=== PATIENT | male | born 1955 | race Caucasian/White ===

== ENCOUNTER 2021-07-21 09:43 | Day surgery (SDC) | payer OTHER ==
--- NOTE | 2021-07-21 09:01 | HP ---
DATE OF SURGERY: 07/21/2021 HISTORY OF PRESENT ILLNESS: The patient is a 66-year-old with no prior colonoscopy. Grandmother at age 57 of cancer metastatic to the colon. The patient has pain and some hemorrhoid problems despite conservative treatment. PAST MEDICAL HISTORY: Hypertension. Reflux. Hyperlipidemia. PAST SURGICAL HISTORY: Broken wrist repair. Hydrocele in the past. MEDICATIONS: Metoprolol, multivitamins, omeprazole, rosuvastatin, lisinopril, amlodipine, famotidine. ALLERGIES: NKDA. FAMILY HISTORY: Grandmother with cancer to part of the colon. SOCIAL HISTORY: Four beers in the evening. He denies alcohol abuse. REVIEW OF SYSTEMS: Fourteen systems reviewed. No chest pain or palpitations. Other systems negative or noncontributory as above and per preadmission questionnaire. PHYSICAL EXAMINATION: GENERAL: No acute distress. HEENT: Sclerae nonicteric. NECK: No JVD. CHEST: Equal excursion, nonlabored breathing. CVS: Regular rate and rhythm. ABDOMEN: Soft. No peritoneal signs. EXTREMITIES: No significant edema. NEURO: Alert, oriented, moving extremities symmetrically. RECTAL: Deferred timed to endoscopy exam. PSYCH: Appropriate mood and affect. IMPRESSION: Family history of cancer to the colon. No prior colonoscopy. The patient is in need of screening colonoscopy. Additionally, this patient has had some hemorrhoid issues will consider possible internal hemorrhoid banding pending on operative findings. Risks and benefits explained in detail including but not limited to bleeding or infection, risk of bowel injury or perforation possibly requiring open procedure, risk of missed or nondiagnosis or incomplete exam possibly requiring barium enema, other studies or procedures, general risk of anesthesia or sedation, risk of bowel prep. Regarding possible hemorrhoid banding if accomplished, possibility of progression disease possibly requiring other procedures down the road or treatments. General risk of infection, small risk of bleeding, risks of aches, pains and pressure but not limited to. Remote risk of major infection possibly requiring diversion but not limited to, consent obtained. Will proceed with outpatient colonoscopy and possible internal hemorrhoid banding as an outpatient.
[2021-07-21] MEDS ORDERED: Lactated Ringers 1,000 ML IV SCH (10:30)
[2021-07-21] MEDS ORDERED: Lactated Ringers 1,000 ML IV ONE ×2 (10:36→11:42)
[2021-07-21] MEDS ORDERED: DIPRIVAN 200 MG/20 ML IV ONE ×3 (11:08→11:31)
[2021-07-21] MEDS ORDERED: Versed 2 MG/2 ML Injection ONE (11:08)
[2021-07-21] MEDS ORDERED: Ephedrine Sulfate 50 MG/ML ONE (11:27)
[2021-07-21 13:12] LABS: INR 1.03 (0.8-3.0); PROTIME 12.2 SECONDS (9.4-12.5)
[2021-07-21 13:17] VITALS: BP 144/81; PULSE 54; O2SAT 96
--- NOTE | 2021-07-21 15:44 | OP ---
SURGERY DATE/TIME: 07/21/2021 1107 PREOPERATIVE DIAGNOSES: 1) Family history of colon cancer. 2) Need for screening colonoscopy. 3) Questionable history of some internal and external hemorrhoid issues. POSTOPERATIVE DIAGNOSES: 1) Multiple polyps and polypoid lesions throughout the entire colon, majority of which were in 30 cm of sigmoid colon to the cecum, more than 25 polypoid and polyp lesions. 2) Mild diverticulosis. 3) Minimal small internal/external hemorrhoids (no banding warranted today). PROCEDURES: 1) Colonoscopy to cecum. 2) Hot snare polypectomy of cecal polyp x2. 3) Cold biopsy of small cecal sessile mass. 4) Hot snare polypectomy of two ascending colon polyps. 5) Hot snare partial polypectomy of large polypoid lesion ascending colon with ink spot tattooing of location (this polyp could not be entirely safely removed endoscopically). 6) Hemoclip placement polypectomy site proximal ascending colon. 7) Hot snare polypectomy of transverse colon polyp. 8) Hot biopsy polypectomy of smaller polyps x4 transverse colon. 9) Hot snare polypectomy descending colon polyp. 10) Hot snare polypectomy of four to five sigmoid colon polyps. 11) Hot biopsy one of which oozing side with Hemoclip application sigmoid colon polypectomy site. 12) Ink spot marking of hot biopsy polypectomy site of sessile polypoid lesion transverse colon. Ink spot tattooing marking the location. 13) Ink spot tattooing in a couple different locations of sigmoid polypoid lesion large enough not to be safely removed completely endoscopically about 30 cm from the anal verge. 14) Hot snare polypectomy of two small rectal polyps with hot biopsy polypectomy of a third one of which was a distal rectal hot snare polypectomy. SURGEON: Dr. Demond Soto. ANESTHESIA: MAC. ESTIMATED BLOOD LOSS: Minimal. INDICATIONS: He has a strong family of colon cancer. He has not had a prior colonoscopy. He was in need of screening colonoscopy and also wanted to evaluate for hemorrhoids at the time. Consent obtained. DESCRIPTION OF PROCEDURE AND FINDINGS: The patient is taken to the endoscopy room. MAC anesthesia induced. After official time out and no disagreement with planned procedure, digital rectal exam revealed some small internal and external hemorrhoids. Video colonoscope inserted and passed up through the slightly tortuous sigmoid, descending, transverse and ascending colon around to the cecum. Ileocecal valve photo documented. The patient had multiple polyps throughout the colon most of all concentrated from about 30 cm to anal verge all the way around the cecum. There was a 1 cm sized polyp removed with hot snare polypectomy in the cecum. Another smaller polyp removed with hot snare polypectomy in the cecum. Good hemostasis noted. Small polyp in the proximal ascending colon removed with hot snare polypectomy. There was some persistent ooze at this site. After waiting a few seconds it was elected to put Hemoclip carefully applied to the area. Another couple ascending colon polyps removed with hot snare polypectomy. He had a polypoid lesion that was way too large to safely remove endoscopically in the ascending colon. Because of this the other several small polyps were not removed. A large piece of this was removed with hot snare to get a good biopsy sample of this polypoid lesion. In the ascending colon, ink spot tattooing in a couple different locations was injected. The scope was carefully withdrawn back to the ascending colon. There were two or three smaller polyps removed with hot snare polypectomy. One polyp was removed with hot snare polypectomy. There is a sessile lesion that could not be completely removed endoscopically. Biopsy obtained with hot biopsy forceps. Good hemostasis noted. It should be noted that back in the cecum, there were two polyps that were removed completely with the snare. However there is a sessile small mass that is not very deep, sessile polypoid lesion or mass. It was biopsied with cold biopsy forceps. Good hemostasis noted. The scope was continued to be pulled back through the descending colon. Small polyp removed with hot snare polypectomy. The patient did have a few small diverticula in the left colon. There was at least four sigmoid polyps removed with hot snare polypectomy. One side had some persistent oozing despite waiting for a few seconds which was controlled with Hemoclip application. There was a group of three polypoid lesions moderately large polypoid lesions ranging from 0.5 to 2.5 cm that could not be safely removed endoscopically. Because of this again ink spot tattooing was injected 1 cc in submucosa at a couple locations to ryan this location this was about 30 cm up from the anal verge. Hot snare polypectomy sample was taken. The scope pulled back. He had a few small diverticula to his left colon. There were three small polyps in the rectum two were removed with hot snare polypectomy and one was in the distal rectum removed with hot snare polypectomy, smaller retrieved with hot biopsy polypectomy. These appeared to be completely removed. The scope is withdrawn. Half-padilla retractors carefully inserted. His internal hemorrhoids did not seem to be large enough to warrant banding at this point. He did have a few external tags/ external hemorrhoids component. I do not feel it warranted any surgical intervention. The bleeding he had in the past is likely from these multiple polypoid lesions. Again, there were just three very small polyps down in the rectal area, mostly large polyps were from 30 cm and more up and proximal to the cecum. I asked the staff to order the genetic cancer screening test. I will see him back in the office next week. There was no family to discuss the findings with.
== END 2021-07-21 13:25 | disposition home or self-care (01) ==
LOC: SDC 09:43
PROVIDERS: ATTEND Surgery
DX: Z12.11 Encounter for screening for malignant neoplasm of colon (principal); Z80.0 Family history of malignant neoplasm of digestive organs; K64.8 Other hemorrhoids; K64.4 Residual hemorrhoidal skin tags; K57.30 Diverticulosis of large intestine without perforation or abscess without bleeding; D12.0 Benign neoplasm of cecum; D12.4 Benign neoplasm of descending colon; D12.5 Benign neoplasm of sigmoid colon; D12.3 Benign neoplasm of transverse colon; D12.8 Benign neoplasm of rectum
CPT/HCPCS: 36415; 85610; J2250; J2704

== ENCOUNTER 2023-08-15 10:51 | Emergency (ER) | payer OTHER ==
[2023-08-15 11:05] VITALS: TEMP 97.5
--- NOTE | 2023-08-15 11:24 | ERPHSYRPT ---
- History of Present Illness Time Seen by Provider: 08/15/23 11:05 Source: patient Exam Limitations: no limitations Patient Subjective Stated Complaint: SOB-Abdominal pain Triage Nursing Assessment: Patient ambulated back to ED and transferred self to bed. Patient A+O X3. Patient's skin pink, warm and dry. Patient complains of SOB that started yesterday that has gotten worse today. Patient's initial O2 noted to be 90% on room air. Patient placed on O2 at 3 liters bringing O2 to 96%. Patient denies cough. Patient complains of leroy flank pain 08/05. Patient states for the past two weeks he has been having up to 12 bowel movements a day consisting of thick peanut butter. Physician History: 68-year-old male with history of tobacco abuse, bilateral flank pain for the last 2 to 3 months after colonoscopy presented in the ER with complaint of shortness of breath since yesterday with progressive worsening. Patient reports feeling short of breath initially with activity and now even at resting. No chest tightness pressure or pain reported. No wheezing. No cough fever or chills. Patient denies any history of coronary artery disease. No known sick contact. Patient has bilateral flank pain dull aching discomfort with no aggravating or relieving factors. Does report some upper abdominal distention and questionable history of constipation. Patient was not mild distress on presentation with saturation around 90% and placed on 2 L oxygen and currently around 96%. Allergies/Adverse Reactions: No Known Drug Allergies Allergy (Verified 08/15/23 10:55) Home Medications: Amlodipine Besylate 5 mg [Norvasc 5 mg] 5 mg PO DAILY 07/11/21 [History] Famotidine 20 mg PO DAILY 07/11/21 [History] Lisinopril 20 mg [Zestril 20 MG] 20 mg PO DAILY 07/11/21 [History] Metoprolol Succinate 100 mg [Toprol Xl 100 MG] 100 mg PO DAILY 07/11/21 [History] Multivit with Iron,Minerals [Theratrum Complete 50 Plus] 1 tab PO DAILY 07/11/21 [History] Omeprazole 40 mg PO DAILY 07/11/21 [History] Rosuvastatin Calcium 20 mg PO DAILY 07/11/21 [History] Hx Influenza Vaccination/Date Given: No Hx Pneumococcal Vaccination/Date Given: No Immunizations Up to Date: Yes Travel Risk - International Travel Have you traveled outside of the country in past 3 weeks: No - Emerging Infectious Disease Are you exhibiting symptoms associated with any current EIDs: No - Review of Systems Constitutional: Fatigue Eyes: No Symptoms Ears, Nose, & Throat: No Symptoms Respiratory: Cough, Dyspnea Cardiac: No Symptoms Abdominal/Gastrointestinal: Abdominal Pain, Constipation Genitourinary Symptoms: No Symptoms Musculoskeletal: Arthralgias Skin: No Symptoms Neurological: No Symptoms Psychological: No Symptoms Hematologic/Lymphatic: No Symptoms Immunological/Allergic: No Symptoms - Past Medical History Pertinent Past Medical History: Yes Neurological History: No Pertinent History ENT History: No Pertinent History Cardiac History: High Cholesterol, Hypertension Respiratory History: No Pertinent History Endocrine Medical History: No Pertinent History Musculoskeletal History: No Pertinent History GI Medical History: GERD, Other History: No Pertinent History Psycho-Social History: No Pertinent History Male Reproductive Disorders: No Pertinent History Other Medical History: right side inguinal hernia x 10 years - Past Surgical History Past Surgical History: Yes Neuro Surgical History: No Pertinent History Cardiac: No Pertinent History Respiratory: No Pertinent History Gastrointestinal: No Pertinent History Genitourinary: No Pertinent History Musculoskeletal: No Pertinent History Male Surgical History: No Pertinent History Other Surgical History: hydrocele - Social History Smoking Status: Former smoker How long have you smoked: 40 yrs Exposure to second hand smoke: Yes Drug Use: none - Nursing Vital Signs Nursing Vital Signs: Initial Vital Signs Temperature 97.5 F 08/15/23 10:56 Pulse Rate 75 08/15/23 10:56 Respiratory Rate 30 H 08/15/23 10:56 Blood Pressure 175/107 08/15/23 10:56 O2 Sat by Pulse Oximetry 90 L 08/15/23 10:56 Pain Scale Pain Intensity 3 - Physical Exam General Appearance: no apparent distress, alert Eye Exam: PERRL/EOMI Ears, Nose, Throat Exam: hearing grossly normal Neck Exam: normal inspection, non-tender, supple, full range of motion Respiratory Exam: respiratory distress, diminished breath sounds (Especially on right side), rhonchi Cardiovascular/Chest Exam: normal heart sounds, regular rate/rhythm Abdominal/Gastrointestinal Exam: soft, normal bowel sounds, No tenderness Extremity Exam: non-tender, normal range of motion Neurologic Exam: alert, oriented x 3, cooperative Skin Exam: normal color SpO2 Interpretation: normal SpO2: 90 O2 Delivery: Room Air Procedures - Chest Tube Time of Procedure: 14:24 Timeout: Performed Chest Tube Location: fourth intercostal space Size of Egyptian Tube (cm): 8 Chest Tube Procedure: betadine prep Anesthesia: 1% Lidocaine w/ Epi Volume Anesthetic (ccs): 4 Correa of Air Mcnairy: Yes Tube Drainage: air Tube Sutured to Skin: Yes Post Procedure CXR?: Yes Progress: Lung reexpansion with decrease in size of pneumothorax interpreted by me, official report pending - Course EKG Interpreted by Me: RATE ([id number]), Sinus Rhythm, NORMAL AXIS, Q-wave Ordered Tests: Active Orders 24 hr Category Date Time Status EKG-ER Only STAT Care 08/15/23 11:19 Active IV Insertion STAT Care 08/15/23 11:19 Active NPO (ED) STAT Care 08/15/23 11:19 Active ABDOMEN AND PELVIS W CONTRAST [CT] Stat Exams 08/15/23 11:20 Completed CHEST 1 VIEW (PORTABLE) Stat Exams 08/15/23 11:20 Completed CHEST 1 VIEW (PORTABLE) Stat Exams 08/15/23 13:54 Taken CHEST 1 VIEW (PORTABLE) Stat Exams 08/15/23 17:26 Ordered CHEST WITHOUT CONTRAST [CT] Stat Exams 08/15/23 14:23 Completed CBC W DIFF Stat Lab 08/15/23 11:19 Completed CMP Stat Lab 08/15/23 11:19 Completed LIPASE Stat Lab 08/15/23 11:19 Completed Lactic Acid Stat Lab 08/15/23 11:19 Completed NT PRO BNPII Stat Lab 08/15/23 11:19 Completed TROPONIN Q4H Lab 08/15/23 11:19 Completed TROPONIN Q4H Lab 08/15/23 15:06 Completed TROPONIN Q4H Lab 08/15/23 19:30 Ordered UA W/RFX UR CULTURE Stat Lab 08/15/23 11:19 Ordered Respiratory Therapy Assessment DAILY RT 08/15/23 12:55 Completed Medication Summary Generic Name Dose Route Start Last Admin Trade Name Freq PRN Reason Stop Dose Admin Sodium Chloride 1,000 mls @ 100 mls/hr 08/15/23 11:30 08/15/23 11:26 Sodium Chloride 0.9% 1000 Ml IV 09/14/23 11:29 100 mls/hr .Q10H TRE Administration Discontinued Medications Generic Name Dose Route Start Last Admin Trade Name Freq PRN Reason Stop Dose Admin Albuterol/Ipratropium 3 ml 08/15/23 11:24 08/15/23 11:32 Ipratropium/Albuterol Sulfate 3 Ml Ampul.Neb IH 08/15/23 11:25 3 ml STAT ONE Administration Albuterol/Ipratropium Confirm 08/15/23 11:31 Ipratropium/Albuterol Sulfate 3 Ml Ampul.Neb Administered 08/15/23 11:32 Dose 3 ml IH .STK-MED ONE Hydralazine HCl 10 mg 08/15/23 14:37 08/15/23 14:45 Hydralazine Hcl 20 Mg/Ml Vial IV 08/15/23 14:38 10 mg STAT ONE Administration Hydralazine HCl Confirm 08/15/23 14:45 Hydralazine Hcl 20 Mg/Ml Vial Administered 08/15/23 14:46 Dose 20 mg .ROUTE .STK-MED ONE Lidocaine/Epinephrine Confirm 08/15/23 13:48 Lidocaine Hcl/Epinephrine 1% 20 Ml Administered 08/15/23 13:49 Dose 10 ml .ROUTE .STK-MED ONE Lab/Rad Data: Laboratory Result Diagrams 08/15/23 11:19 08/15/23 11:19 Laboratory Results 08/15/23 08/15/23 08/15/23 Range/Units 15:06 11:19 11:19 WBC (4.0-10.5) x10^3/uL RBC (4.1-5.6) x10^6/uL Hgb (12.5-18.0) g/dL Hct (42-50) % MCV (78-100) fL MCH (26-32) pg MCHC (32-36) g/dL RDW (11.5-14.0) % Plt Count (150-450) x10^3/uL MPV (7.5-11.0) fL Gran % (36.0-66.0) % Immature Gran % (Auto) (0.00-0.4) % Nucleat RBC Rel Count (0.00-0.1) % Eos # (Auto) (0-0.5) x10^3/uL Immature Gran # (Auto) (0.00-0.03) x10^3u/L Absolute Lymphs (auto) (1.0-4.6) x10^3/uL Absolute Monos (auto) (0.0-1.3) x10^3/uL Absolute Nucleated RBC (0.00-0.01) x10^3u/L Lymphocytes % (24.0-44.0) % Monocytes % (0.0-12.0) % Eosinophils % (0.00-5.0) % Basophils % (0.0-0.4) % Absolute Granulocytes (1.4-6.9) x10^3/uL Basophils # (0-0.4) x10^3/uL Sodium 143 (135-145) mmol/L Potassium 4.2 (3.5-5.1) mmol/L Chloride 105 (98-107) mmol/L Carbon Dioxide 28 (22-30) mmol/L Anion Gap 14.0 (5-15) MEQ/L BUN 16 (9-20) mg/dL Creatinine 1.11 (0.66-1.25) mg/dL Estimated GFR 71.9 ML/MIN Glucose 136 H (74-106) mg/dL Lactic Acid (0.4-2.0) Calcium 10.8 H (8.4-10.2) mg/dL Total Bilirubin 0.70 (0.2-1.3) mg/dL AST 42 (17-59) U/L ALT 53 H (0-50) U/L Alkaline Phosphatase 87 (38-126) U/L Troponin I < 0.012 < 0.012 (0.000-0.033) ng/mL NT-Pro-B Natriuret Pep 331 (<300) pg/mL Serum Total Protein 8.6 H (6.3-8.2) g/dL Albumin 5.1 H (3.5-5.0) g/dL Lipase 211 (23-300) U/L 08/15/23 08/15/23 Range/Units 11:19 11:19 WBC 7.9 (4.0-10.5) x10^3/uL RBC 4.81 (4.1-5.6) x10^6/uL Hgb 15.8 (12.5-18.0) g/dL Hct 46.6 (42-50) % MCV 96.9 (78-100) fL MCH 32.8 H (26-32) pg MCHC 33.9 (32-36) g/dL RDW 12.9 (11.5-14.0) % Plt Count 312 (150-450) x10^3/uL MPV 11.1 H (7.5-11.0) fL Gran % 50.5 (36.0-66.0) % Immature Gran % (Auto) 0.1 (0.00-0.4) % Nucleat RBC Rel Count 0.0 (0.00-0.1) % Eos # (Auto) 0.18 (0-0.5) x10^3/uL Immature Gran # (Auto) 0.01 (0.00-0.03) x10^3u/L Absolute Lymphs (auto) 2.52 (1.0-4.6) x10^3/uL Absolute Monos (auto) 1.15 (0.0-1.3) x10^3/uL Absolute Nucleated RBC 0.00 (0.00-0.01) x10^3u/L Lymphocytes % 31.8 (24.0-44.0) % Monocytes % 14.5 H (0.0-12.0) % Eosinophils % 2.3 (0.00-5.0) % Basophils % 0.8 (0.0-0.4) % Absolute Granulocytes 4.01 (1.4-6.9) x10^3/uL Basophils # 0.06 (0-0.4) x10^3/uL Sodium (135-145) mmol/L Potassium (3.5-5.1) mmol/L Chloride (98-107) mmol/L Carbon Dioxide (22-30) mmol/L Anion Gap (5-15) MEQ/L BUN (9-20) mg/dL Creatinine (0.66-1.25) mg/dL Estimated GFR ML/MIN Glucose (74-106) mg/dL Lactic Acid 1.6 (0.4-2.0) Calcium (8.4-10.2) mg/dL Total Bilirubin (0.2-1.3) mg/dL AST (17-59) U/L ALT (0-50) U/L Alkaline Phosphatase (38-126) U/L Troponin I (0.000-0.033) ng/mL NT-Pro-B Natriuret Pep (<300) pg/mL Serum Total Protein (6.3-8.2) g/dL Albumin (3.5-5.0) g/dL Lipase (23-300) U/L - Progress Progress: re-examined Air Movement: good Progress Note: 08/15/23 17:49 68-year-old is evaluated for shortness of breath and abdominal pain. Patient was tachypneic on presentation, although saturation around 90% but was struggling to breathe, placed on 3 L oxygen with saturation around 93 to 94%. Patient has decreased breath sounds on the left right and x-ray confirmed right- sided pneumothorax with some element of tension confirmed by radiology. After informed consent 8 Egyptian mini chest tube is placed with reexpansion of the lung noticed. Patient immediately started to feel better and without oxygen his saturation improved to mid to upper 90s. Workup otherwise showed normal white count, unremarkable chemistries except for some elevation in the calcium of 10.8, troponins are negative x 2. I have also obtained CT abdomen pelvis which is fairly unremarkable, having mild colonic thickening but patient does not have any significant tenderness in that area. I have obtained CT without contrast after chest tube placement which showed the tip of tube is possibly in the lung and I have pulled it back almost 4 cm and repeated x-ray which is showing still tube in with no worsening of pneumothorax reviewed by me, official report is pending. Chest x-ray also showed some granulomatous changes but no obvious consolidation. Patient is currently on room air around 98%. Discussed with Dr. Minna tao here, recommended transfer to facility with pulmonology services. I have discussed with Dr. Field at 1530, reviewed history, workup, recommended calling back after CT scan. I have discussed with Dr. Field again after CT report [id number] he agreed with transfer. Plan discussed with patient which she understand and agrees. Based on patient's history, amount of workup, interpretation, procedure done and discussion with other physicians it was one of the higher level of complexity. 08/15/23 17:53 Blood Culture(s) Obtained: No Antibiotics given: No Discussed with : Other Will see patient in: ED (Minna balderramaist and Dr. Field [facility]) Counseled pt/family regarding: lab results, diagnosis, need for follow-up, rad results Medical Desision Making - Independent Historian Additional History obtained from: Spouse - Discussion of managment Care discussed with:: [facility]) Reviewed:: Test results, Need for additional workup Agreed on:: Treatment plan Will see patient: in ED - Diagnostic Testing Diagnostic test were ordered, analyzed, and reviewed by me: Yes Radiological Interpretation: Interpreted by me, Reviewed by me, Teleradiologist Report - Risk of complications The pt has a mod risk of morbidity or mortality based on: Need for minor surgical intervention in patient with know risk factors The pt has a high risk of morbidity or mortality based on: Decision regarding hospitilization or escalation of hosp level of care - Departure Departure Disposition: Transfer Clinical Impression: Spontaneous tension pneumothorax, Abdominal pain Condition: Stable Critical Care Time: No Referrals: CHUNG ARTEAGA, PHP PROGRAMMER [Primary Care Provider] - Follow up/PCP as directed
[2023-08-15] MEDS ORDERED: Sodium Chloride 0.9% 1000 ML 1,000 ML ONE (11:25)
[2023-08-15] MEDS: Sodium Chloride 0.9% 1000 ML 1,000 ML IV SCH (11:26)
[2023-08-15 11:31] LABS: Absolute Neutrophil Ct (ANC) 4.01 x10^3/uL (1.4-6.9); BASOPHIL % 0.8 % (0.0-0.4); Basophil (Absolute #) 0.06 x10^3/uL (0-0.4); Eosinophil % 2.3 % (0.00-5.0); Eosinophil (Absolute #) 0.18 x10^3/uL (0-0.5); Hematocrit 46.6 % (42-50); Hemoglobin 15.8 g/dL (12.5-18.0); IMMATURE GRAN # 0.01 x10^3u/L (0.00-0.03); IMMATURE GRAN % 0.1 % (0.00-0.4); Lymphocyte (Absolute #) 2.52 x10^3/uL (1.0-4.6); Lymphocytes % 31.8 % (24.0-44.0); Mean Cell Volume 96.9 fL (78-100); Mean Corpuscular Hemoglobin 32.8 pg (26-32); Mean Corpuscular Hgb Concent. 33.9 g/dL (32-36); Mean Platelet Volume 11.1 fL (7.5-11.0); Monocyte (Absolute #) 1.15 x10^3/uL (0.0-1.3); Monocytes % 14.5 % (0.0-12.0); Neutrophil % 50.5 % (36.0-66.0); Platelet Count 312 x10^3/uL (150-450); Red Blood Count 4.81 x10^6/uL (4.1-5.6); Red Cell Distribution Width 12.9 % (11.5-14.0); White Blood Count 7.9 x10^3/uL (4.0-10.5)
[2023-08-15] MEDS ORDERED: DUONEB 0.5-3 MG/3 ml Neb IH ONE (11:31)
[2023-08-15] MEDS: DUONEB 0.5-3 MG/3 ml Neb IH ONE (11:32)
[2023-08-15 11:54] LABS: ALBUMIN 5.1 g/dL (3.5-5.0); BILIRUBIN,TOTAL 0.7 mg/dL (0.2-1.3); Calcium 10.8 mg/dL (8.4-10.2); Creatinine 1 1.11 mg/dL (0.66-1.25); EST GLOMERULAR FILTRATION RATE 71.9 ML/MIN; Potassium 4.2 mmol/L (3.5-5.1); Total Protein 8.6 g/dL (6.3-8.2)
--- NOTE | 2023-08-15 13:47 | XRAY ---
CLINICAL HISTORY: b/l flank area pain COMPARISON: None. TECHNIQUE: A CT scan of the abdomen and pelvis was performed with IV contrast 80 cc Isovue 370. Coronal and sagittal reconstructive images were also obtained. One of the following dose reduction techniques was utilized for this exam: Automated exposure control, adjustment of the mA and/or kV according to patient size, and use of iterative reconstruction. DLP 565.00 mGy-cm, CTDI 11.72 mGy. FINDINGS: Abdomen: The liver is normal in size and measures 13 cm. No focal or diffuse parenchymal abnormality. The portal vein, intrahepatic biliary radicals, and the bile ducts are normal. The spleen, pancreas, and adrenal glands are unremarkable. The kidneys are unremarkable. They are normal in size and shape. No calculi or hydronephrosis. apart from small bilateral renal cortical cysts with mild perinephric mild fatty stranding. The gallbladder is normal. No pericholecystic collection or radio-dense calculi in the gall bladder. Mild wall thickening at the sigmoid colon. The rest of the bowel loops are unremarkable. No acute appendicitis. There is no evidence of significant enlargement of the mesenteric or retroperitoneal lymph nodes. cuts taken through the lung showing marked right pneumothorax, right lower lung lobe large calcified lesion measuring about 3.7 x 2.6 cm associated with mild pleural effusion and nodular pleural thickening and underlying segmental collapsed segment. Another small calcified lesion in the left lower lung lobe measures about 0.7 x 0.7 cm. Atherosclerotic changes of the aorta and iliac vessels. Pelvis: The urinary bladder is unremarkable. The rectosigmoid colon is unremarkable. The prostate is unremarkable. A large right inguinoscrotal hernia is noted with herniated bowel loops within. No evidence of pelvic lymphadenopathy. The osseous structures in the pelvis, lower rib cage, and lumbar spine show no abnormality. No lytic or sclerotic bone lesions. Lumbar spine spondylosis. IMPRESSION: 1. Cuts taken through the lung showed marked right pneumothorax, right lower lung lobe large calcified lesion measuring about 3.7 x 2.6 cm associated with mild pleural effusion and nodular pleural thickening and underlying segmental collapsed segment. Another small calcified lesion in the left lower lung lobe. The possibility of metastatic or neoplastic process could not be ruled out, advise clinical correlation and further dedicated CT chest assessment. 2. Mild sigmoid colon wall thickening. Advise clinical correlation and further assessment if clinically warranted. 3. Small bilateral Right renal simple cortical cysts. 4. The rest of the findings as described. [facility] ER was called at [phone] at 01:43 PM EST, 08/15/2023 and results were verbally communicated to Dr. Barnes. Electronically Signed by: Case Carver MD. (08/15/2023 13:43:55 EDT)
[2023-08-15] MEDS ORDERED: XYLOCAINE 1%/Epi 1:100000 MDV 20 ML ONE (13:48)
--- NOTE | 2023-08-15 14:07 | XRAY ---
CLINICAL HISTORY: sob COMPARISON: None. TECHNIQUE: X-ray of the chest, AP portable view. FINDINGS: Right side large area of the region of lucency is noted compressing the lung and causing subsequent lung collapse and underlying opacity in the right lower zone para cardiac region. Normal configuration of the mediastinum. The deidre are normal in size and position. The cardiac size is normal. The bony thorax is unremarkable. The costophrenic and cardiophrenic angles are clear. IMPRESSION: Right-sided large tension pneumothorax with lung collapse and underlying opacity in the right lower zone para cardiac region. Needs a CT Chest for further evaluation. [facility] ER was called at [phone] at 01:43 PM EST, 08/15/2023 and results were verbally communicated to Dr. Barnes. Electronically Signed by: Case Carver MD. (08/15/2023 14:04:06 EDT)
[2023-08-15] MEDS ORDERED: APRESOLINE 20 MG/ML INJ ONE (14:45)
[2023-08-15] MEDS: APRESOLINE 20 MG/ML INJ IV ONE (14:45)
--- NOTE | 2023-08-15 16:54 | XRAY ---
CLINICAL HISTORY: pneumothorax COMPARISON: None. TECHNIQUE: Contiguous axial non-contrast CT images of the chest were acquired. Coronal and sagittal reconstructions were also obtained. One of the following dose reduction techniques were utilized for this exam: Automated exposure control, adjustment of the mA and/or kV according to patient size, use of iterative reconstruction. FINDINGS: Small right sided pneumothorax. Right intercostal tube, its tip within the lung needs readjustment. Right lower lobe atelectasis. Round calcified lesion measuring about 3.7 x 2.6 cm noted within the right lower lobe. Another few small calcified nodules noted in the lower lobes of both lungs of average of 7mm represent calcified granulomas. Calcified hilar lymph nodes noted. Small right side pleural effusion. No free or encysted left pleural effusion. Heart size is normal, and there is no pericardial effusion. Calcified aortic atheroma No pathologically enlarged mediastinal, hilar or axillary lymph node identified. Old fracture of the right second rib. There is no definite mass lesion in the chest wall. Scanned upper abdomen is unremarkable. Small hiatal hernia. IMPRESSION: Small right sided pneumothorax. Right intercostal tube, its tip within the lung, needs readjustment. Small right side pleural effusion. 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 Other calcified bilateral pulmonary nodules and calcified hilar lymph nodes , likley related to granulomatous process , please correlate with old chest x ray studies. Old fracture of the right second rib. [facility] ER was called at [phone] at 3:45 PM SLOT SUPER[employer]OR, 08/15/2023 and significant medical findings were verbally communicated to Chato Alcala. Electronically Signed by: Case Carver MD. (08/15/2023 16:50:04 EDT)
[2023-08-15 19:11] LABS: Appearance Clear (Clear); Bacteria None Seen /HPF (None Seen); Bilirubin Negative (Negative); Blood Negative (Negative); Epithelial Cells None Seen /HPF (None Seen); Glucose, Urine Negative (Negative); Hyaline Casts NONE SEEN /LPF (0-2); Ketones Negative (Negative); Leukocyte Esterase Negative (Negative); Nitrite Negative (Negative); Protein,Urine Dip Negative (Negative); RBC 0-2 /HPF (0-5); Specific Gravity >=1.030 (1.005-1.030); Urobilinogen 0.2 mg/dL (0.2); WBC 0-2 /HPF (0-5)
[2023-08-15 19:13] LABS: ADD URINE CULTURE? NO (NO)
--- NOTE | 2023-08-15 19:57 | XRAY ---
Indication: Chest tube placement. Comparison: Taken earlier in the day Portal chest demonstrates new right chest tube with tip projecting right midlung. Previous right pneumothorax resolved with persistent right base infiltrate/atelectasis/effusion. Remaining heart and left lung unremarkable again with a few incidental calcified granulomas.
--- NOTE | 2023-08-15 20:04 | XRAY ---
Indication: Chest tube repositioning. Comparison: Taken earlier in the day Portable chest demonstrates manipulation right chest tube with tip now projecting over right base. No pneumothorax. Grossly stable right base infiltrate/atelectasis/effusion. Remaining heart and left lung unremarkable again with a few incidental calcified granulomas.
[2023-08-15 20:16] VITALS: BP 167/99; PULSE 74; RESP 20; O2SAT 98
== END 2023-08-15 20:23 | disposition short-term general hospital (02) ==
LOC: ED 10:51
DX: J93.0 Spontaneous tension pneumothorax (principal); R10.9 Unspecified abdominal pain; R06.02 Shortness of breath; E78.5 Hyperlipidemia, unspecified; I10 Essential (primary) hypertension; Z79.899 Other long term (current) drug therapy; Z87.891 Personal history of nicotine dependence
CPT/HCPCS: 36000; 36415; 71045; 71250; 74177; 80053; 81001; 83605; 83690; 83880; 84484; 85025; 93005; 94640; 96374; 99285; J0360; A9270-GY

== ENCOUNTER 2024-02-07 06:27 | Observation (INO) | payer OTHER ==
[2024-02-07] MEDS ORDERED: DUONEB 0.5-3 MG/3 ml Neb IH ONE (06:33)
[2024-02-07] MEDS: DUONEB 0.5-3 MG/3 ml Neb IH ONE (06:39)
[2024-02-07 06:48] LABS: VBG BASE EXCESS 3.2 (-2.0-2.0); VBG CARBOXYHEMOGLOBIN 0.8 % T HGB (0.0-6.9); VBG HCO3- 29.6 meq/L (22-28); VBG HEMOGLOBIN 16.3; VBG POTASSIUM 4.3 (3.5-5.1); VBG pH 7.38 (7.32-7.42)
[2024-02-07 07:00] LABS: Absolute Neutrophil Ct (ANC) 4.67 x10^3/uL (1.78-5.38); BASOPHIL % 0.8 % (0.2-1.2); Basophil (Absolute #) 0.07 x10^3/uL (0.01-0.08); Eosinophil % 1.2 % (0.8-7.0); Eosinophil (Absolute #) 0.11 x10^3/uL (0.04-0.54); Hematocrit 45.3 % (40.1-51.0); Hemoglobin 15.5 g/dL (13.7-17.5); IMMATURE GRAN # 0.02 x10^3u/L (0.001-0.031); IMMATURE GRAN % 0.2 % (0.001-0.429); Lymphocyte (Absolute #) 2.71 x10^3/uL (1.32-3.57); Lymphocytes % 30.1 % (21.8-53.1); Mean Cell Volume 101.6 fL (79.0-92.2); Mean Corpuscular Hemoglobin 34.8 pg (25.7-32.2); Mean Corpuscular Hgb Concent. 34.2 g/dL (32.3-36.5); Mean Platelet Volume 10.7 fL (9.4-12.4); Monocyte (Absolute #) 1.42 x10^3/uL (0.30-0.82); Monocytes % 15.8 % (5.3-12.2); Neutrophil % 51.9 % (34.0-67.9); Platelet Count 250 x10^3/uL (163-337); Red Blood Count 4.46 x10^6/uL (4.63-6.08); Red Cell Distribution Width 13.2 % (11.6-14.4)
[2024-02-07 07:14] LABS: ALBUMIN 4.7 g/dL (3.5-5.0); ANION GAP 13.6 MEQ/L (5-15); BILIRUBIN,TOTAL 0.8 mg/dL (0.2-1.3); Calcium 10.3 mg/dL (8.4-10.2); Creatinine 1 1.28 mg/dL (0.66-1.25); EST GLOMERULAR FILTRATION RATE 60.6 ML/MIN; Potassium 4.3 mmol/L (3.5-5.1)
--- NOTE | 2024-02-07 07:27 | ERPHSYRPT ---
- History of Present Illness Time Seen by Provider: 02/07/24 07:00 Source: patient Exam Limitations: no limitations Patient Subjective Stated Complaint: pt states he has had a cold for the past week and has been increasingly short of breath since yesterday Triage Nursing Assessment: pt alert and oriented, answers questions approp. pt pausing while talking to get a breath. pt ambualtes into room with steady gait noted. pt states he has been coughing up large amounts of white/clear mucus. pt short of breath and sitting up in tripod position upon arrival to er. skin warm and dry. Physician History: This is a 68-year-old white male patient who is a former smoker, is a patient of nurse practitioner Lisa and presents to the emergency room by private vehicle on his own secondary to cough and flulike symptoms. Patient states he had flulike symptoms including coughing of clear mucus for the last week. He also had nasal congestion as well. Suddenly, the patient states that shortness of breath worsened yesterday. He had appointment to see his primary care provider later today but the shortness of breath was significant and worsening. Patient arrives to the emergency department obviously short of breath with a room air oxygen saturation level of 90%. 2 L of oxygen via nasal cannula was placed on this patient. He does not ordinarily wear oxygen. Patient has a history of hypertension, gastroesophageal reflux disease and hyperlipidemia. Patient had a similar episode in July 2023 which required chest tube/Heimlich valve. Patient denies abdominal pain. Patient denies chest pain Timing/Duration: week(s) (Symptoms present for a week), worse (Symptoms worse since yesterday) Severity of Dyspnea-Max: moderate Severity of Dyspnea-Current: moderate Possible Cause: occasional episodes (Had a single episode previously July 2023) Modifying Factors: Improves With: coughing Associated Symptoms: cough, productive cough (White mucus), No chest pain/discomfort Allergies/Adverse Reactions: No Known Drug Allergies Allergy (Verified 02/07/24 07:02) Home Medications: Amlodipine Besylate 5 mg [Norvasc 5 mg] 5 mg PO DAILY 07/11/21 [History] Lisinopril 20 mg [Zestril 20 MG] 20 mg PO DAILY 07/11/21 [History] Metoprolol Succinate 100 mg [Toprol Xl 100 MG] 100 mg PO DAILY 07/11/21 [History] Multivit with Iron,Minerals [Theratrum Complete 50 Plus] 1 tab PO DAILY 07/11/21 [History] Omeprazole 40 mg PO DAILY 07/11/21 [History] Hx Tetanus, Diphtheria Vaccination/Date Given: Yes Hx Influenza Vaccination/Date Given: No Hx Pneumococcal Vaccination/Date Given: No Travel Risk - International Travel Have you traveled outside of the country in past 3 weeks: No - Emerging Infectious Disease Are you exhibiting symptoms associated with any current EIDs: Yes Symptoms: Cough: New Onset, Shortness of Breath - Review of Systems Constitutional: No Symptoms Eyes: No Symptoms Ears, Nose, & Throat: No Symptoms Respiratory: Cough, Dyspnea Cardiac: No Symptoms Abdominal/Gastrointestinal: No Symptoms Genitourinary Symptoms: No Symptoms Musculoskeletal: No Symptoms Skin: No Symptoms Neurological: No Symptoms Psychological: No Symptoms Endocrine: No Symptoms Hematologic/Lymphatic: No Symptoms Immunological/Allergic: No Symptoms All Other Systems: Reviewed and Negative - Past Medical History Pertinent Past Medical History: Yes Neurological History: No Pertinent History ENT History: No Pertinent History Cardiac History: High Cholesterol, Hypertension Respiratory History: Other Endocrine Medical History: No Pertinent History Musculoskeletal History: No Pertinent History GI Medical History: GERD, Other History: No Pertinent History Psycho-Social History: No Pertinent History Male Reproductive Disorders: No Pertinent History Other Medical History: right side inguinal hernia x 10 years. collapsed lung summer 2023 - Past Surgical History Past Surgical History: Yes Neuro Surgical History: No Pertinent History Cardiac: No Pertinent History Respiratory: No Pertinent History Gastrointestinal: No Pertinent History Genitourinary: No Pertinent History Musculoskeletal: No Pertinent History Male Surgical History: No Pertinent History Other Surgical History: hydrocele - Social History Smoking Status: Former smoker How long have you smoked: 40 yrs Exposure to second hand smoke: No Drug Use: none - Social Determinants of Health Will the patient participate in the screening: Declined to provide - Nursing Vital Signs Nursing Vital Signs: Initial Vital Signs Pulse Rate 72 02/07/24 06:30 Respiratory Rate 21 02/07/24 06:30 Blood Pressure 173/95 02/07/24 06:30 O2 Sat by Pulse Oximetry 92 L 02/07/24 06:30 Pain Scale Pain Intensity 0 - Physical Exam General Appearance: mild distress, alert, anxiety, thin Eye Exam: PERRL/EOMI, eyes nml inspection Ears, Nose, Throat Exam: hearing grossly normal, normal ENT inspection Neck Exam: normal inspection, non-tender, supple, full range of motion Respiratory Exam: respiratory distress (Mild), diminished breath sounds (Right side), No chest tenderness, No wheezing, No stridor Cardiovascular/Chest Exam: normal heart sounds, regular rate/rhythm Abdominal/Gastrointestinal Exam: soft, normal bowel sounds, No tenderness Rectal Exam: not done Extremity Exam: non-tender, normal range of motion, normal inspection Neurologic Exam: alert, oriented x 3, cooperative, 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: Yes Progress: I prepped the area with ChloraPrep. After anesthetizing the skin and subcutane ous tissue with 1% lidocaine plain and withdrawing air bubbles from the intrathoracic space sterile dressings were applied and a small cut with 11 blade was made in the direction of the fifth intercostal space. Using the Heimlich valve kit an 8 [place] catheter was placed into the intrathoracic space and secured to the skin with 4-0 silk sutures. The Heimlich valve is working well. There was obvious that the area was flowing out and not retracting back in. We then cleaned the area and sterilely placed 4 x 4 gauze and a Tegaderm overlying the site. The patient's oxygen saturation levels on 2 L of nasal cannula increased from 92/93% to 9697%. Patient states that he is breathing better. I interpreted the preliminary report of the postprocedural chest x-ray. I do not appreciate the exact location of the thoracostomy 8 [place] tube. However, it appears as though the lung is now expanded. There appears to be a right lower lobe pneumonia present. There were no complications and the patient taught the procedure well. - Course Nursing assessment & vital signs reviewed: Yes Ordered Tests: Active Orders 24 hr Category Date Time Status Chest Tube [CHEST TUBE,INSERT] ASORD Care 02/07/24 07:59 Active EKG-ER Only STAT Care 02/07/24 06:40 Active IV Insertion STAT Care 02/07/24 06:53 Active CHEST 1 VIEW (PORTABLE) Stat Exams 02/07/24 06:40 Completed CHEST 1 VIEW (PORTABLE) Stat Exams 02/07/24 08:29 Completed BLOOD CULTURE Stat Lab 02/07/24 07:32 Received CBC W DIFF Stat Lab 02/07/24 06:46 Completed CMP Stat Lab 02/07/24 06:46 Completed Lactic Acid Stat Lab 02/07/24 06:45 Completed TROPONIN Q4H Lab 02/07/24 06:46 Completed TROPONIN Q4H Lab 02/07/24 11:45 Received TROPONIN Q4H Lab 02/07/24 15:45 Ordered VENOUS BLOOD GAS Stat Lab 02/07/24 06:45 Completed Medication Summary Discontinued Medications Generic Name Dose Route Start Last Admin Trade Name [place] PRN Reason Stop Dose Admin Albuterol/Ipratropium Confirm 02/07/24 06:33 Ipratropium/Albuterol Sulfate 3 Ml Ampul.Neb Administered 02/07/24 06:34 Dose 3 ml IH .STK-MED ONE Albuterol/Ipratropium 3 ml 02/07/24 06:38 02/07/24 06:39 Ipratropium/Albuterol Sulfate 3 Ml Ampul.Neb IH 02/07/24 06:39 3 ml STAT ONE Administration Methylprednisolone Sodium 0 mg 02/07/24 08:49 02/07/24 09:39 Succinate 125 mg/ Sterile IV 02/07/24 08:50 125 mg Water 2 ml STAT ONE Administration Ceftriaxone Sodium 1 gm in 100 mls @ 200 mls/hr 02/07/24 08:49 02/07/24 09:38 Rocephin 1 Gm / 100 Ml Nacl IV 02/07/24 09:18 200 ml/hr STAT ONE 200 mls/hr Administration Ceftriaxone Sodium Confirm 02/07/24 09:37 Rocephin 1 Gm / 100 Ml Nacl Administered 02/07/24 09:38 Dose 1 gm in 100 mls @ ud IV .STK-MED ONE Methylprednisolone Sodium Succinate Confirm 02/07/24 09:37 Methylprednis Sod Succ 125 Mg/2 Ml Vial Administered 02/07/24 09:38 Dose 125 mg .ROUTE .STK-MED ONE Morphine Sulfate 4 mg 02/07/24 07:31 02/07/24 07:38 Morphine Sulfate 4 Mg/Ml Injection IV 02/07/24 07:32 4 mg STAT ONE Administration Morphine Sulfate Confirm 02/07/24 07:34 Morphine Sulfate 4 Mg/Ml Injection Administered 02/07/24 07:35 Dose 4 mg .ROUTE .STK-MED ONE Ondansetron HCl 4 mg 02/07/24 07:31 02/07/24 07:38 Ondansetron Hcl 4 Mg/2 Ml Vial IV 02/07/24 07:32 4 mg STAT ONE Administration Ondansetron HCl Confirm 02/07/24 07:33 Ondansetron Hcl 4 Mg/2 Ml Vial Administered 02/07/24 07:34 Dose 4 mg .ROUTE .STK-MED ONE Sterile Water Confirm 02/07/24 09:37 Water For Injection,Sterile 10 Ml Vial Administered 02/07/24 09:38 Dose 10 ml IJ .STK-MED ONE Lab/Rad Data: Laboratory Result Diagrams 02/07/24 06:46 02/07/24 06:46 Laboratory Results 02/07/24 02/07/24 02/07/24 Range/Units 06:54 06:46 06:46 WBC (4.23-9.07) x10^3/uL RBC (4.63-6.08) x10^6/uL Hgb (13.7-17.5) g/dL Hct (40.1-51.0) % MCV (79.0-92.2) fL MCH (25.7-32.2) pg MCHC (32.3-36.5) g/dL RDW (11.6-14.4) % Plt Count (163-337) x10^3/uL MPV (9.4-12.4) fL Gran % (34.0-67.9) % Immature Gran % (Auto) (0.001-0.429) % Nucleat RBC Rel Count (0.00-0.2) % Eos # (Auto) (0.04-0.54) x10^3/uL Immature Gran # (Auto) (0.001-0.031) x10^3u/L Absolute Lymphs (auto) (1.32-3.57) x10^3/uL Absolute Monos (auto) (0.30-0.82) x10^3/uL Absolute Nucleated RBC (0.00-0.012) x10^3u/L Lymphocytes % (21.8-53.1) % Monocytes % (5.3-12.2) % Eosinophils % (0.8-7.0) % Basophils % (0.2-1.2) % Absolute Granulocytes (1.78-5.38) x10^3/uL Basophils # (0.01-0.08) x10^3/uL pO2/FiO2 Ratio % VBG pH (7.32-7.42) VBG pCO2 at Pat Temp (42-55) mm/Hg VBG pO2 at Pat Temp (25-40) mm/Hg VBG HCO3 (22-28) meq/L VBG O2 Sat (Salima) (95-100) VBG Base Excess (-2.0-2.0) VBG Hemoglobin VBG Carboxyhemoglobin (0.0-6.9) % T HGB POC Potassium (3.5-5.1) Sodium 145 (135-145) mmol/L Potassium 4.3 (3.5-5.1) mmol/L Chloride 109 H (98-107) mmol/L Carbon Dioxide 27 (22-30) mmol/L Anion Gap 13.6 (5-15) MEQ/L BUN 28 H (9-20) mg/dL Creatinine 1.28 H (0.66-1.25) mg/dL Estimated GFR 60.6 ML/MIN Glucose 128 H (74-106) mg/dL Lactic Acid (0.4-2.0) Calcium 10.3 H (8.4-10.2) mg/dL Total Bilirubin 0.80 (0.2-1.3) mg/dL AST 50 (17-59) U/L ALT 54 H (0-50) U/L Alkaline Phosphatase 61 (38-126) U/L Troponin I 0.013 (0.000-0.033) ng/mL Serum Total Protein 8.0 (6.3-8.2) g/dL Albumin 4.7 (3.5-5.0) g/dL Influenza Type A Ag NEGATIVE (NEGATIVE) Influenza Type B Ag NEGATIVE (NEGATIVE) RSV (PCR) NEGATIVE (NEGATIVE) SARS-CoV-2 (PCR) NEGATIVE (NEGATIVE) 02/07/24 02/07/24 Range/Units 06:46 06:45 WBC 9.0 (4.23-9.07) x10^3/uL RBC 4.46 L (4.63-6.08) x10^6/uL Hgb 15.5 (13.7-17.5) g/dL Hct 45.3 (40.1-51.0) % MCV 101.6 H (79.0-92.2) fL MCH 34.8 H (25.7-32.2) pg MCHC 34.2 (32.3-36.5) g/dL RDW 13.2 (11.6-14.4) % Plt Count 250 (163-337) x10^3/uL MPV 10.7 (9.4-12.4) fL Gran % 51.9 (34.0-67.9) % Immature Gran % (Auto) 0.2 (0.001-0.429) % Nucleat RBC Rel Count 0.0 (0.00-0.2) % Eos # (Auto) 0.11 (0.04-0.54) x10^3/uL Immature Gran # (Auto) 0.02 (0.001-0.031) x10^3u/L Absolute Lymphs (auto) 2.71 (1.32-3.57) x10^3/uL Absolute Monos (auto) 1.42 H (0.30-0.82) x10^3/uL Absolute Nucleated RBC 0.00 (0.00-0.012) x10^3u/L Lymphocytes % 30.1 (21.8-53.1) % Monocytes % 15.8 H (5.3-12.2) % Eosinophils % 1.2 (0.8-7.0) % Basophils % 0.8 (0.2-1.2) % Absolute Granulocytes 4.67 (1.78-5.38) x10^3/uL Basophils # 0.07 (0.01-0.08) x10^3/uL pO2/FiO2 Ratio 28.0 % VBG pH 7.38 (7.32-7.42) VBG pCO2 at Pat Temp 50 (42-55) mm/Hg VBG pO2 at Pat Temp 27 (25-40) mm/Hg VBG HCO3 29.6 H* (22-28) meq/L VBG O2 Sat ([place]ima) 33.0 L (95-100) VBG Base Excess 3.2 H (-2.0-2.0) VBG Hemoglobin 16.3 VBG Carboxyhemoglobin 0.8 (0.0-6.9) % T HGB POC Potassium 4.3 (3.5-5.1) Sodium (135-145) mmol/L Potassium (3.5-5.1) mmol/L Chloride (98-107) mmol/L Carbon Dioxide (22-30) mmol/L Anion Gap (5-15) MEQ/L BUN (9-20) mg/dL Creatinine (0.66-1.25) mg/dL Estimated GFR ML/MIN Glucose (74-106) mg/dL Lactic Acid 1.0 (0.4-2.0) Calcium (8.4-10.2) mg/dL Total Bilirubin (0.2-1.3) mg/dL AST (17-59) U/L ALT (0-50) U/L Alkaline Phosphatase (38-126) U/L Troponin I (0.000-0.033) ng/mL Serum Total Protein (6.3-8.2) g/dL Albumin (3.5-5.0) g/dL Influenza Type A Ag (NEGATIVE) Influenza Type B Ag (NEGATIVE) RSV (PCR) (NEGATIVE) SARS-CoV-2 (PCR) (NEGATIVE) - Progress Progress: improved, re-examined Air Movement: good Progress Note: 02/07/24 07:44 My medical decision making and the assignment of moderate to high complexity this is based on review of the patient's past medical history, review of the patient's medication list, reviewed patient drug allergy list, history present illness and physical findings on examination. The workup in this patient includes placement of an intravenous line, CBC, CMP, troponin level, BNP, twelve-lead EKG, chest x-ray, blood cultures, viral swabs. Differential diagnosis includes is not limited to COPD exacerbation, CHF exacerbation, pneumonia, myocardial infarction, viral illness I interpreted the preliminary report of the chest x-ray performed this morning. Patient has a significant, recurrent right pneumothorax. 02/07/24 08:50 My interpretation of the post procedure chest x-ray is found under the procedure section. The postprocedure final report of the chest x-ray was performed by the radiologist. The radiologist interpretation is new right chest tube with tip projecting into the right lung base. The right pneumothorax has improved with a tiny residual in the apex. Remaining heart and lungs unremarkable. 02/07/24 09:54 I spoke with telehospitalist Dr. Li about this patient. I reviewed the patient history, patient's chief complaint, physical findings and workup results. He stated that he is fine placing him in observation if general surgery would care for and monitor the Heimlich valve tube. We will contact general surgery. 02/07/24 12:[address] Vilchis agrees to manage the patient's right chest tube while in the hospital setting under observation status. Blood Culture(s) Obtained: Yes Antibiotics given: Yes Counseled pt/family regarding: lab results, diagnosis, rad results Medical Desision Making - Discussion of managment Care discussed with:: hospitalist Reviewed:: Test results Will see patient: in ED - Diagnostic Testing Diagnostic test were ordered, analyzed, and reviewed by me: Yes Radiological Interpretation: Reviewed by me, Teleradiologist Report - Risk of complications The pt has a high risk of morbidity or mortality based on: Decision regarding hospitilization or escalation of hosp level of care - Departure Departure Disposition: Home Clinical Impression: Pneumothorax, Right pulmonary infiltrate on CXR, Chest tube in place Condition: Stable Critical Care Time: No Referrals: CHUNG ARTEAGA NP [Primary Care Provider] - Follow up/PCP as directed
[2024-02-07] MEDS ORDERED: Zofran 4 MG/2 ML VIAL ONE (07:33)
[2024-02-07] MEDS ORDERED: MORPHINE SULFATE 4 MG INJ ONE (07:34)
[2024-02-07 07:36] LABS: INFLUENZA A NEGATIVE (NEGATIVE); INFLUENZA B NEGATIVE (NEGATIVE); RESPIRATORY SYNCTIAL VIRUS NEGATIVE (NEGATIVE); SARS-CoV-2 Xpert Express NEGATIVE (NEGATIVE)
[2024-02-07] MEDS: Zofran 4 MG/2 ML VIAL IV ONE (07:38)
[2024-02-07] MEDS: MORPHINE SULFATE 4 MG INJ IV ONE (07:38)
--- NOTE | 2024-02-07 08:39 | XRAY ---
Indication: Cough. Dyspnea. Comparison: August 15, 2023 Portable chest demonstrates recurrent 50% right lung pneumothorax with right base subsegmental atelectasis. Remaining heart and left lung unremarkable again with incidental left base calcified granuloma. Bony thorax intact.
--- NOTE | 2024-02-07 08:41 | XRAY ---
Indication: Chest tube placement. Comparison: Taken earlier in the day. Portable chest demonstrates new right chest tube with tip projecting lung base. Right pneumothorax improved with tiny residual near apex. Remaining heart and left lung unremarkable again with incidental calcified granulomas.
[2024-02-07] MEDS ORDERED: ROCEPHIN 1 GM / 100 ML NaCl 1 GM/100 ML IVPB IV ONE (09:37)
[2024-02-07] MEDS ORDERED: Sterile H2O 10 ml IJ ONE (09:37)
[2024-02-07] MEDS ORDERED: solu-MEDROL ONE (09:37)
[2024-02-07] MEDS: ROCEPHIN 1 GM / 100 ML NaCl 1 GM/100 ML IVPB IV ONE (09:38)
[2024-02-07] MEDS: solu-MEDROL 125 MG, Sterile H2O 10 ml 2 ML IV ONE (09:39)
--- NOTE | 2024-02-07 14:19 | PCM.HP ---
History of Present Illness - Chief Complaint Chief Complaint: Dyspnea Date: 02/07/24 History of Present Illness: is a 68 year old male with a pmhx of HLD, HTN, and lung collapse July of 2023 presented to ED 02/07/24 with complaints of progressive shortness of b reath. Patient states his symptoms began about one week ago. At that time he had a cough with copious amounts of clear production, sore throat, and subjective fever. He reports taking Nyquil for his symptoms and felt better until about Wednesday when his cough and shortness of breath came back. The shortness of breath progressively got worse over the weekend with today being the worst he felt. He reports back in July he had a collapsed lung and spent a week a [facility] with a chest tube/hemlich valve. Upon arrival to ED patient was tachypneic and hypertensive with spo2 in the low 90's. CXR showing recurrent 50% right lung pneumothorax with right base subsegmental atelctasis. Right chest tube/Heimlich valve placed with spo2 improving to 92/93%. Repeat cxr with noted placement and RLL pneumonia. Lab findings significant for JETT with creat at 1.28 (baseline aroud 1.1) and hypercalcemia at 10.3. Respiratory panel negative. Plan for observation overnight with abx for treatment of pneumonia and right pneumothorax. - Review of Systems Constitutional: Fever, Weakness Eyes: No Symptoms Ears, Nose, & Throat: No Symptoms Respiratory: Cough, Short Of Breath Cardiac: No Symptoms Abdominal/Gastrointestinal: No Symptoms Genitourinary Symptoms: No Symptoms Musculoskeletal: No Symptoms, Other (leg cramps) Skin: No Symptoms Neurological: No Symptoms Psychological: No Symptoms Endocrine: No Symptoms Hematologic/Lymphatic: No Symptoms Medications & Allergies Home Medications: Home Medication List Amlodipine Besylate 5 mg [Norvasc 5 mg] 5 mg PO DAILY 07/11/21 [History Confirmed 02/07/24] Lisinopril 20 mg [Zestril 20 MG] 20 mg PO DAILY 07/11/21 [History Confirmed 02/07/24] Metoprolol Succinate 100 mg [Toprol Xl 100 MG] 100 mg PO DAILY 07/11/21 [History Confirmed 02/07/24] Multivit with Iron,Minerals [Theratrum Complete 50 Plus] 1 tab PO DAILY 07/11/21 [History Confirmed 02/07/24] Omeprazole 40 mg PO DAILY 07/11/21 [History Confirmed 02/07/24] Allergies/Adverse Reactions: Allergies Allergy/AdvReac Type Severity Reaction Status Date / Time No Known Drug Allergies Allergy Verified 02/07/24 07:02 - Past Medical History Past Medical History: Yes Neurological History: No Pertinent History ENT History: No Pertinent History Cardiac History: High Cholesterol, Hypertension Respiratory History: Other Endocrine Medical History: No Pertinent History Musculoskelatal History: No Pertinent History GI Medical History: GERD, Other History: No Pertinent History Pyscho-Social History: No Pertinent History Male Reproductive Disorders: No Pertinent History Comment: right side inguinal hernia x 10 years. collapsed lung summer 2023 - Past Surgical History Past Surgical History: Yes Neuro Surgical History: No Pertinent History Cardiac History: No Pertinent History Respiratory Surgery: No Pertinent History GI Surgical History: No Pertinent History Genitourinary Surgical Hx: No Pertinent History Musculskeletal Surgical Hx: No Pertinent History Male Surgical History: No Pertinent History Other Surgical History: hydrocele Significant Family History: other (colon cancer -mom) - Social History Smoking Status: Former smoker (quit September 2023) How long have you smoked: 40 yrs Exposure to second hand smoke: No Alcohol: Occasionally Drug Use: none - Social Determinants of Health Will the patient participate in the screening: Declined to provide Do you worry about a steady place to live?: No In the past 12 months,have you had to go without utilities?: No Have you or anyone in your house had to go without enough: No Transportation Issues: No Has anyone in your support network made you feel unsafe?: No - Physical Exam Vital Signs: Vital Signs - 24 hr Temp Pulse Resp BP BP Pulse Ox 02/07/24 13:15 68 22 153/87 93 L 02/07/24 13:00 66 21 151/94 93 L 02/07/24 12:45 68 26 H 158/92 92 L 02/07/24 12:38 96 02/07/24 12:34 69 24 142/84 93 L 02/07/24 12:33 86 21 94 L 02/07/24 12:26 105/81 93 L 02/07/24 12:21 141/87 02/07/24 12:15 68 21 156/87 93 L 02/07/24 12:10 71 24 146/97 93 L 02/07/24 12:06 67 18 144/104 94 L 02/07/24 12:01 69 24 159/76 93 L 02/07/24 12:00 67 27 H 95 02/07/24 11:58 70 19 95 02/07/24 11:50 70 26 H 161/95 94 L 02/07/24 11:45 68 19 146/85 95 02/07/24 11:40 68 18 168/94 94 L 02/07/24 11:35 66 20 155/94 93 L 02/07/24 11:30 67 21 155/92 94 L 02/07/24 11:25 72 19 161/92 95 02/07/24 11:20 67 19 145/86 95 02/07/24 11:15 68 24 155/89 94 L 02/07/24 11:10 62 16 151/91 95 02/07/24 11:05 69 15 139/77 96 02/07/24 11:00 67 22 157/87 96 02/07/24 10:55 65 21 146/91 95 02/07/24 10:50 68 19 144/96 94 L 02/07/24 10:45 68 23 152/89 94 L 02/07/24 10:40 67 23 152/91 95 02/07/24 10:35 65 22 144/97 95 02/07/24 10:30 67 18 145/84 95 02/07/24 10:25 63 15 153/86 95 02/07/24 10:20 65 20 162/89 94 L 02/07/24 10:15 65 19 138/99 95 02/07/24 10:10 66 19 156/89 98 02/07/24 10:05 65 21 156/89 95 02/07/24 10:00 66 18 148/99 95 02/07/24 09:56 70 16 144/89 96 02/07/24 09:51 66 20 146/105 97 02/07/24 09:45 70 16 148/81 96 02/07/24 09:40 74 17 154/82 96 02/07/24 09:35 67 21 157/96 96 02/07/24 09:30 70 17 143/79 96 02/07/24 09:25 71 25 H 169/91 96 02/07/24 09:20 67 20 150/74 95 02/07/24 09:15 68 19 160/79 96 02/07/24 09:10 67 17 136/78 97 02/07/24 09:05 68 23 143/92 96 02/07/24 09:00 67 17 152/78 96 02/07/24 08:55 68 22 156/85 95 02/07/24 08:51 68 20 145/81 95 02/07/24 08:45 80 16 150/85 95 02/07/24 08:41 73 20 108/58 95 02/07/24 08:35 74 16 159/82 94 L 02/07/24 08:30 75 14 151/87 96 02/07/24 08:27 73 24 139/69 96 02/07/24 08:20 78 15 159/88 95 02/07/24 08:16 74 14 161/88 96 02/07/24 08:10 79 18 174/100 95 02/07/24 08:05 181/96 96 02/07/24 08:00 80 31 H 185/110 96 02/07/24 07:55 79 26 H 176/90 94 L 02/07/24 07:50 73 17 174/98 95 02/07/24 07:46 72 26 H 169/99 97 02/07/24 07:40 78 27 H 178/106 91 L 02/07/24 07:32 70 28 H 92 L 02/07/24 07:00 72 30 H 158/100 02/07/24 06:40 68 24 96 02/07/24 06:35 96.5 F 68 24 173/95 91 L 02/07/24 06:30 72 21 173/95 92 L General Appearance: no apparent distress Neurologic Exam: alert, oriented x 3, cooperative, EOM palsy Ears, Nose, Throat Exam: normal ENT inspection Neck Exam: normal inspection Respiratory Exam: diminished breath sounds Cardiovascular Exam: regular rate/rhythm, normal heart sounds Gastrointestinal/Abdomen Exam: soft, normal bowel sounds Rectal Exam: deferred Back Exam: normal inspection Extremity Exam: normal inspection Skin Exam: normal color Results - Labs Lab/Micro Results: Lab Results-Last 24 Hours 02/07/24 02/07/24 02/07/24 Range/Units 06:45 06:46 06:46 WBC 9.0 (4.23-9.07) x10^3/uL RBC 4.46 L (4.63-6.08) x10^6/uL Hgb 15.5 (13.7-17.5) g/dL Hct 45.3 (40.1-51.0) % MCV 101.6 H (79.0-92.2) fL MCH 34.8 H (25.7-32.2) pg MCHC 34.2 (32.3-36.5) g/dL RDW 13.2 (11.6-14.4) % Plt Count 250 (163-337) x10^3/uL MPV 10.7 (9.4-12.4) fL Gran % 51.9 (34.0-67.9) % Immature Gran % (Auto) 0.2 (0.001-0.429) % Nucleat RBC Rel Count 0.0 (0.00-0.2) % Eos # (Auto) 0.11 (0.04-0.54) x10^3/uL Immature Gran # (Auto) 0.02 (0.001-0.031) x10^3u/L Absolute Lymphs (auto) 2.71 (1.32-3.57) x10^3/uL Absolute Monos (auto) 1.42 H (0.30-0.82) x10^3/uL Absolute Nucleated RBC 0.00 (0.00-0.012) x10^3u/L Lymphocytes % 30.1 (21.8-53.1) % Monocytes % 15.8 H (5.3-12.2) % Eosinophils % 1.2 (0.8-7.0) % Basophils % 0.8 (0.2-1.2) % Absolute Granulocytes 4.67 (1.78-5.38) x10^3/uL Basophils # 0.07 (0.01-0.08) x10^3/uL pO2/FiO2 Ratio 28.0 % VBG pH 7.38 (7.32-7.42) VBG pCO2 at Pat Temp 50 (42-55) mm/Hg VBG pO2 at Pat Temp 27 (25-40) mm/Hg VBG HCO3 29.6 H* (22-28) meq/L VBG O2 Sat (Salima) 33.0 L (95-100) VBG Base Excess 3.2 H (-2.0-2.0) VBG Hemoglobin 16.3 VBG Carboxyhemoglobin 0.8 (0.0-6.9) % T HGB POC Potassium 4.3 (3.5-5.1) Sodium 145 (135-145) mmol/L Potassium 4.3 (3.5-5.1) mmol/L Chloride 109 H (98-107) mmol/L Carbon Dioxide 27 (22-30) mmol/L Anion Gap 13.6 (5-15) MEQ/L BUN 28 H (9-20) mg/dL Creatinine 1.28 H (0.66-1.25) mg/dL Estimated GFR 60.6 ML/MIN Glucose 128 H (74-106) mg/dL Lactic Acid 1.0 (0.4-2.0) Calcium 10.3 H (8.4-10.2) mg/dL Total Bilirubin 0.80 (0.2-1.3) mg/dL AST 50 (17-59) U/L ALT 54 H (0-50) U/L Alkaline Phosphatase 61 (38-126) U/L Troponin I (0.000-0.033) ng/mL Serum Total Protein 8.0 (6.3-8.2) g/dL Albumin 4.7 (3.5-5.0) g/dL Influenza Type A Ag (NEGATIVE) Influenza Type B Ag (NEGATIVE) RSV (PCR) (NEGATIVE) SARS-CoV-2 (PCR) (NEGATIVE) 02/07/24 02/07/24 02/07/24 Range/Units 06:46 06:54 11:45 WBC (4.23-9.07) x10^3/uL RBC (4.63-6.08) x10^6/uL Hgb (13.7-17.5) g/dL Hct (40.1-51.0) % MCV (79.0-92.2) fL MCH (25.7-32.2) pg MCHC (32.3-36.5) g/dL RDW (11.6-14.4) % Plt Count (163-337) x10^3/uL MPV (9.4-12.4) fL Gran % (34.0-67.9) % Immature Gran % (Auto) (0.001-0.429) % Nucleat RBC Rel Count (0.00-0.2) % Eos # (Auto) (0.04-0.54) x10^3/uL Immature Gran # (Auto) (0.001-0.031) x10^3u/L Absolute Lymphs (auto) (1.32-3.57) x10^3/uL Absolute Monos (auto) (0.30-0.82) x10^3/uL Absolute Nucleated RBC (0.00-0.012) x10^3u/L Lymphocytes % (21.8-53.1) % Monocytes % (5.3-12.2) % Eosinophils % (0.8-7.0) % Basophils % (0.2-1.2) % Absolute Granulocytes (1.78-5.38) x10^3/uL Basophils # (0.01-0.08) x10^3/uL pO2/FiO2 Ratio % VBG pH (7.32-7.42) VBG pCO2 at Pat Temp (42-55) mm/Hg VBG pO2 at Pat Temp (25-40) mm/Hg VBG HCO3 (22-28) meq/L VBG O2 Sat (Salima) (95-100) VBG Base Excess (-2.0-2.0) VBG Hemoglobin VBG Carboxyhemoglobin (0.0-6.9) % T HGB POC Potassium (3.5-5.1) Sodium (135-145) mmol/L Potassium (3.5-5.1) mmol/L Chloride (98-107) mmol/L Carbon Dioxide (22-30) mmol/L Anion Gap (5-15) MEQ/L BUN (9-20) mg/dL Creatinine (0.66-1.25) mg/dL Estimated GFR ML/MIN Glucose (74-106) mg/dL Lactic Acid (0.4-2.0) Calcium (8.4-10.2) mg/dL Total Bilirubin (0.2-1.3) mg/dL AST (17-59) U/L ALT (0-50) U/L Alkaline Phosphatase (38-126) U/L Troponin I 0.013 < 0.012 (0.000-0.033) ng/mL Serum Total Protein (6.3-8.2) g/dL Albumin (3.5-5.0) g/dL Influenza Type A Ag NEGATIVE (NEGATIVE) Influenza Type B Ag NEGATIVE (NEGATIVE) RSV (PCR) NEGATIVE (NEGATIVE) SARS-CoV-2 (PCR) NEGATIVE (NEGATIVE) - Radiology Impressions Radiology Exams & Impressions: Radiology Procedures Category Date Time Status CHEST 1 VIEW (PORTABLE) Stat Exams 02/07/24 06:40 Completed CHEST 1 VIEW (PORTABLE) Stat Exams 02/07/24 08:29 Completed Assessment/Plan (1) Pneumothorax Current Visit: Yes Status: Acute Assessment & Plan: -Surgery consulted for management of chest tube/heimlich valve -supplemental oxygen with goal spo2 > 94% -Repeat cxr 02/08/24 Code(s): J93.9 - PNEUMOTHORAX, UNSPECIFIED (2) Right pulmonary infiltrate on CXR Current Visit: Yes Status: Acute Assessment & Plan: -ceftriaxone started in ED- will continue - add azithromycin -supplemental oxygen -prednisone -bcult pending Code(s): R91.8 - OTHER NONSPECIFIC ABNORMAL FINDING OF LUNG FIELD (3) HTN (hypertension) Current Visit: Yes Status: Acute Assessment & Plan: -continue home meds/hold lisinopril for JETT Code(s): I10 - ESSENTIAL (PRIMARY) HYPERTENSION (4) HLD (hyperlipidemia) Current Visit: Yes Status: Acute Assessment & Plan: -continue home regimen Code(s): E78.5 - HYPERLIPIDEMIA, UNSPECIFIED (5) Chest tube in place Current Visit: Yes Status: Acute Assessment & Plan: -placement confirmed with cxr -surgery consulted for management Code(s): Z96.89 - PRESENCE OF OTHER SPECIFIED FUNCTIONAL IMPLANTS
[2024-02-07] MEDS ORDERED: DUONEB 0.5-3 MG/3 ml Neb IH PRN (14:35)
[2024-02-07] MEDS ORDERED: TYLENOL 325 MG PO PRN ×2 (14:35→14:55)
[2024-02-07] MEDS ORDERED: Zofran 4 MG/2 ML VIAL IV PRN ×2 (14:35→14:55)
--- NOTE | 2024-02-07 16:37 | XRAY ---
Indication: Bilateral leg numbness. Two-dimensional sonogram and color Doppler imaging major arteries left and right leg performed. Comparison: None Examination right leg demonstrates widely patent common femoral, deep femoral, superficial femoral, and popliteal arteries. Minimal arteriosclerotic disease in the remaining posterior tibial and dorsal pedal arteries. Arterial waveforms are multiphasic throughout right right leg. Right arm brachial pressure not obtained due to known port. Right ankle pressure is 119. Right ankle brachial index using left arm brachial pressure is 0.87 favoring mild ischemic disease. Examination left leg demonstrates widely patent common femoral, deep femoral, superficial femoral, and popliteal arteries. Minimal arteriosclerotic disease in the remaining posterior tibial and dorsal pedal arteries. Arterial waveforms are multiphasic throughout left leg. Left arm brachial pressure is 137. Left ankle pressure is 129. Ankle brachial index is 0.94, normal. Impression: 1. Mild arteriosclerotic disease in both lower legs. Negative for critical stenosis/obstruction. 2. Right [place] is 0.87 favoring mild ischemic disease. Left [place] is normal.
[2024-02-07] MEDS: Protonix 40MG Tablet PO SCH (16:56)
[2024-02-07] MEDS: THERAGRAN MULTIVITAMIN PO SCH (16:57)
[2024-02-07] MEDS: NORVASC 5 MG PO SCH (16:57)
[2024-02-07] MEDS: Zithromax 500 MG/ 250 ML NaCl Premix 500 MG/250 ML IVPB IV SCH (16:57)
[2024-02-07] MEDS: Sodium Chloride 0.9% 500 ML 500 ML IV SCH (16:57)
[2024-02-07] MEDS: Toprol Xl 100 MG PO SCH (17:13)
[2024-02-07] MEDS: Requip 0.5 MG PO SCH (21:04)
[2024-02-08 04:55] LABS: Absolute Neutrophil Ct (ANC) 9.71 x10^3/uL (1.78-5.38); BASOPHIL % 0.1 % (0.2-1.2); Basophil (Absolute #) 0.01 x10^3/uL (0.01-0.08); Eosinophil % 0.1 % (0.8-7.0); Eosinophil (Absolute #) 0.01 x10^3/uL (0.04-0.54); Hematocrit 40.1 % (40.1-51.0); Hemoglobin 13.4 g/dL (13.7-17.5); IMMATURE GRAN # 0.03 x10^3u/L (0.001-0.031); IMMATURE GRAN % 0.3 % (0.001-0.429); Lymphocyte (Absolute #) 1.08 x10^3/uL (1.32-3.57); Lymphocytes % 9.2 % (21.8-53.1); Mean Corpuscular Hemoglobin 33.8 pg (25.7-32.2); Mean Corpuscular Hgb Concent. 33.4 g/dL (32.3-36.5); Mean Platelet Volume 10.6 fL (9.4-12.4); Monocyte (Absolute #) 0.95 x10^3/uL (0.30-0.82); Monocytes % 8.1 % (5.3-12.2); Neutrophil % 82.2 % (34.0-67.9); Platelet Count 232 x10^3/uL (163-337); Red Blood Count 3.97 x10^6/uL (4.63-6.08); Red Cell Distribution Width 13.1 % (11.6-14.4); White Blood Count 11.8 x10^3/uL (4.23-9.07)
[2024-02-08 05:16] LABS: ANION GAP 10.8 MEQ/L (5-15); BILIRUBIN,TOTAL 0.3 mg/dL (0.2-1.3); Calcium 9.5 mg/dL (8.4-10.2); Creatinine 1 1.06 mg/dL (0.66-1.25); Total Protein 6.7 g/dL (6.3-8.2)
--- NOTE | 2024-02-08 05:17 | PCM.NOTE ---
Date and Time: 02/08/24 0515 Subjective Assessment: is a 68 year old male with a pmhx of HLD, HTN, and lung collapse July of 2023 presented to ED 02/07/24 with complaints of progressive shortness of breath. Patient states his symptoms began about one week ago. At that time he had a cough with copious amounts of clear production, sore throat, and schroeder bjective fever. He reports taking Nyquil for his symptoms and felt better until about Wednesday when his cough and shortness of breath came back. The shortness of breath progressively got worse over the weekend with today being the worst he felt. He reports back in July he had a collapsed lung and spent a week a [facility] with a chest tube/hemlich valve. Upon arrival to ED patient was tachypneic and hypertensive with spo2 in the low 90's. CXR showing recurrent 50% right lung pneumothorax with right base subsegmental atelctasis. Right chest tube/Heimlich valve placed with spo2 improving to 92/93%. Repeat cxr with noted placement and RLL pneumonia. Lab findings significant for JETT with creat at 1.28 (baseline aroud 1.1) and hypercalcemia at 10.3. Respiratory panel negative. Plan for observation overnight with abx for treatment of pneumonia and right pneumothorax 02/07: Met with patient bedside. Endorses improvement of dyspnea and increased green/clear production with cough. Discussed CXR results showing improvement in pneumothorax. General surgery consulted- appreciate recs. Denies fever, cp, abdominal pain, LANDEROS, dizziness, N/V/D. - Review of Systems Constitutional: No Symptoms Eyes: No Symptoms Ears, Nose, & Throat: No Symptoms Respiratory: Cough, Short Of Breath Cardiac: No Symptoms Abdominal/Gastrointestinal: No Symptoms Genitourinary Symptoms: No Symptoms Musculoskeletal: No Symptoms Skin: No Symptoms Neurological: No Symptoms Psychological: No Symptoms Endocrine: No Symptoms Hematologic/Lymphatic: No Symptoms Immunological/Allergic: No Symptoms Objective Exam General Appearance: no apparent distress Neurologic Exam: alert, oriented x 3, cooperative Skin Exam: normal color Eye Exam: PERRL Ears, Nose, Throat Exam: normal ENT inspection Neck Exam: normal inspection Respiratory Exam: diminished breath sounds Cardiovascular Exam: regular rate/rhythm, normal heart sounds Gastrointestinal/Abdomen Exam: soft, normal bowel sounds Extremity Exam: normal inspection Back Exam: normal inspection Male Genitalia Exam: deferred Rectal Exam: deferred Objective Data Vital Signs: Vital Signs - 24 hr Temp Pulse Resp BP BP Pulse Ox 02/08/24 05:00 97.5 F 66 18 166/72 92 L 02/07/24 23:42 97.6 F 79 18 146/77 94 L 02/07/24 19:50 97.1 F 78 18 133/70 91 L 02/07/24 19:04 93 L 02/07/24 17:05 97.2 F 71 20 133/76 90 L 02/07/24 15:57 74 16 97 02/07/24 14:56 98.1 F 72 18 164/72 91 L 02/07/24 14:55 93 L 02/07/24 13:36 98.1 F 72 22 164/72 91 L 02/07/24 13:15 68 22 153/87 93 L 02/07/24 13:00 66 21 151/94 93 L 02/07/24 12:45 68 26 H 158/92 92 L 02/07/24 12:38 96 02/07/24 12:34 69 24 142/84 93 L 02/07/24 12:33 86 21 94 L 02/07/24 12:26 105/81 93 L 02/07/24 12:21 141/87 02/07/24 12:15 68 21 156/87 93 L 02/07/24 12:10 71 24 146/97 93 L 02/07/24 12:06 67 18 144/104 94 L 02/07/24 12:01 69 24 159/76 93 L 02/07/24 12:00 67 27 H 95 02/07/24 11:58 70 19 95 02/07/24 11:50 70 26 H 161/95 94 L 02/07/24 11:45 68 19 146/85 95 02/07/24 11:40 68 18 168/94 94 L 02/07/24 11:35 66 20 155/94 93 L 02/07/24 11:30 67 21 155/92 94 L 02/07/24 11:25 72 19 161/92 95 02/07/24 11:20 67 19 145/86 95 02/07/24 11:15 68 24 155/89 94 L 02/07/24 11:10 62 16 151/91 95 02/07/24 11:05 69 15 139/77 96 02/07/24 11:00 67 22 157/87 96 02/07/24 10:55 65 21 146/91 95 02/07/24 10:50 68 19 144/96 94 L 02/07/24 10:45 68 23 152/89 94 L 02/07/24 10:40 67 23 152/91 95 02/07/24 10:35 65 22 144/97 95 02/07/24 10:30 67 18 145/84 95 02/07/24 10:25 63 15 153/86 95 02/07/24 10:20 65 20 162/89 94 L 02/07/24 10:15 65 19 138/99 95 02/07/24 10:10 66 19 156/89 98 02/07/24 10:05 65 21 156/89 95 02/07/24 10:00 66 18 148/99 95 02/07/24 09:56 70 16 144/89 96 02/07/24 09:51 66 20 146/105 97 02/07/24 09:45 70 16 148/81 96 02/07/24 09:40 74 17 154/82 96 02/07/24 09:35 67 21 157/96 96 02/07/24 09:30 70 17 143/79 96 02/07/24 09:25 71 25 H 169/91 96 02/07/24 09:20 67 20 150/74 95 02/07/24 09:15 68 19 160/79 96 02/07/24 09:10 67 17 136/78 97 02/07/24 09:05 68 23 143/92 96 02/07/24 09:00 67 17 152/78 96 02/07/24 08:55 68 22 156/85 95 02/07/24 08:51 68 20 145/81 95 02/07/24 08:45 80 16 150/85 95 02/07/24 08:41 73 20 108/58 95 02/07/24 08:35 74 16 159/82 94 L 02/07/24 08:30 75 14 151/87 96 02/07/24 08:27 73 24 139/69 96 02/07/24 08:20 78 15 159/88 95 02/07/24 08:16 74 14 161/88 96 02/07/24 08:10 79 18 174/100 95 02/07/24 08:05 181/96 96 02/07/24 08:00 80 31 H 185/110 96 02/07/24 07:55 79 26 H 176/90 94 L 02/07/24 07:50 73 17 174/98 95 02/07/24 07:46 72 26 H 169/99 97 02/07/24 07:40 78 27 H 178/106 91 L 02/07/24 07:32 70 28 H 92 L 02/07/24 07:00 72 30 H 158/100 02/07/24 06:40 68 24 96 02/07/24 06:35 96.5 F 68 24 173/95 91 L 02/07/24 06:30 72 21 173/95 92 L Pain Assessment - Last Documented Pain Intensity 0 Pain Scale Used 0-10 Pain Scale Intake and Output: Intake & Output 02/05/24 02/06/24 02/07/24 02/08/24 11:59 11:59 11:59 11:59 Intake Total 360 Balance 360 Weight 81.647 kg 81.3 kg Lab Results: Lab Results-Last 24 Hours 02/07/24 02/07/24 02/07/24 Range/Units 06:45 06:46 06:46 WBC 9.0 (4.23-9.07) x10^3/uL RBC 4.46 L (4.63-6.08) x10^6/uL Hgb 15.5 (13.7-17.5) g/dL Hct 45.3 (40.1-51.0) % MCV 101.6 H (79.0-92.2) fL MCH 34.8 H (25.7-32.2) pg MCHC 34.2 (32.3-36.5) g/dL RDW 13.2 (11.6-14.4) % Plt Count 250 (163-337) x10^3/uL MPV 10.7 (9.4-12.4) fL Gran % 51.9 (34.0-67.9) % Immature Gran % (Auto) 0.2 (0.001-0.429) % Nucleat RBC Rel Count 0.0 (0.00-0.2) % Eos # (Auto) 0.11 (0.04-0.54) x10^3/uL Immature Gran # (Auto) 0.02 (0.001-0.031) x10^3u/L Absolute Lymphs (auto) 2.71 (1.32-3.57) x10^3/uL Absolute Monos (auto) 1.42 H (0.30-0.82) x10^3/uL Absolute Nucleated RBC 0.00 (0.00-0.012) x10^3u/L Lymphocytes % 30.1 (21.8-53.1) % Monocytes % 15.8 H (5.3-12.2) % Eosinophils % 1.2 (0.8-7.0) % Basophils % 0.8 (0.2-1.2) % Absolute Granulocytes 4.67 (1.78-5.38) x10^3/uL Basophils # 0.07 (0.01-0.08) x10^3/uL pO2/FiO2 Ratio 28.0 % VBG pH 7.38 (7.32-7.42) VBG pCO2 at Pat Temp 50 (42-55) mm/Hg VBG pO2 at Pat Temp 27 (25-40) mm/Hg VBG HCO3 29.6 H* (22-28) meq/L VBG O2 Sat (Salima) 33.0 L (95-100) VBG Base Excess 3.2 H (-2.0-2.0) VBG Hemoglobin 16.3 VBG Carboxyhemoglobin 0.8 (0.0-6.9) % T HGB POC Potassium 4.3 (3.5-5.1) Sodium 145 (135-145) mmol/L Potassium 4.3 (3.5-5.1) mmol/L Chloride 109 H (98-107) mmol/L Carbon Dioxide 27 (22-30) mmol/L Anion Gap 13.6 (5-15) MEQ/L BUN 28 H (9-20) mg/dL Creatinine 1.28 H (0.66-1.25) mg/dL Estimated GFR 60.6 ML/MIN Glucose 128 H (74-106) mg/dL Lactic Acid 1.0 (0.4-2.0) Calcium 10.3 H (8.4-10.2) mg/dL Magnesium (1.6-2.3) mg/dL Total Bilirubin 0.80 (0.2-1.3) mg/dL AST 50 (17-59) U/L ALT 54 H (0-50) U/L Alkaline Phosphatase 61 (38-126) U/L Troponin I (0.000-0.033) ng/mL Serum Total Protein 8.0 (6.3-8.2) g/dL Albumin 4.7 (3.5-5.0) g/dL Influenza Type A Ag (NEGATIVE) Influenza Type B Ag (NEGATIVE) RSV (PCR) (NEGATIVE) SARS-CoV-2 (PCR) (NEGATIVE) 02/07/24 02/07/24 02/07/24 Range/Units 06:46 06:54 11:45 WBC (4.23-9.07) x10^3/uL RBC (4.63-6.08) x10^6/uL Hgb (13.7-17.5) g/dL Hct (40.1-51.0) % MCV (79.0-92.2) fL MCH (25.7-32.2) pg MCHC (32.3-36.5) g/dL RDW (11.6-14.4) % Plt Count (163-337) x10^3/uL MPV (9.4-12.4) fL Gran % (34.0-67.9) % Immature Gran % (Auto) (0.001-0.429) % Nucleat RBC Rel Count (0.00-0.2) % Eos # (Auto) (0.04-0.54) x10^3/uL Immature Gran # (Auto) (0.001-0.031) x10^3u/L Absolute Lymphs (auto) (1.32-3.57) x10^3/uL Absolute Monos (auto) (0.30-0.82) x10^3/uL Absolute Nucleated RBC (0.00-0.012) x10^3u/L Lymphocytes % (21.8-53.1) % Monocytes % (5.3-12.2) % Eosinophils % (0.8-7.0) % Basophils % (0.2-1.2) % Absolute Granulocytes (1.78-5.38) x10^3/uL Basophils # (0.01-0.08) x10^3/uL pO2/FiO2 Ratio % VBG pH (7.32-7.42) VBG pCO2 at Pat Temp (42-55) mm/Hg VBG pO2 at Pat Temp (25-40) mm/Hg VBG HCO3 (22-28) meq/L VBG O2 Sat (Salima) (95-100) VBG Base Excess (-2.0-2.0) VBG Hemoglobin VBG Carboxyhemoglobin (0.0-6.9) % T HGB POC Potassium (3.5-5.1) Sodium (135-145) mmol/L Potassium (3.5-5.1) mmol/L Chloride (98-107) mmol/L Carbon Dioxide (22-30) mmol/L Anion Gap (5-15) MEQ/L BUN (9-20) mg/dL Creatinine (0.66-1.25) mg/dL Estimated GFR ML/MIN Glucose (74-106) mg/dL Lactic Acid (0.4-2.0) Calcium (8.4-10.2) mg/dL Magnesium (1.6-2.3) mg/dL Total Bilirubin (0.2-1.3) mg/dL AST (17-59) U/L ALT (0-50) U/L Alkaline Phosphatase (38-126) U/L Troponin I 0.013 < 0.012 (0.000-0.033) ng/mL Serum Total Protein (6.3-8.2) g/dL Albumin (3.5-5.0) g/dL Influenza Type A Ag NEGATIVE (NEGATIVE) Influenza Type B Ag NEGATIVE (NEGATIVE) RSV (PCR) NEGATIVE (NEGATIVE) SARS-CoV-2 (PCR) NEGATIVE (NEGATIVE) 02/07/24 02/07/24 02/08/24 Range/Units 15:10 15:10 04:50 WBC 11.8 H (4.23-9.07) x10^3/uL RBC 3.97 L (4.63-6.08) x10^6/uL Hgb 13.4 L (13.7-17.5) g/dL Hct 40.1 (40.1-51.0) % MCV 101.0 H (79.0-92.2) fL MCH 33.8 H (25.7-32.2) pg MCHC 33.4 (32.3-36.5) g/dL RDW 13.1 (11.6-14.4) % Plt Count 232 (163-337) x10^3/uL MPV 10.6 (9.4-12.4) fL Gran % 82.2 H (34.0-67.9) % Immature Gran % (Auto) 0.3 (0.001-0.429) % Nucleat RBC Rel Count 0.0 (0.00-0.2) % Eos # (Auto) 0.01 L (0.04-0.54) x10^3/uL Immature Gran # (Auto) 0.03 (0.001-0.031) x10^3u/L Absolute Lymphs (auto) 1.08 L (1.32-3.57) x10^3/uL Absolute Monos (auto) 0.95 H (0.30-0.82) x10^3/uL Absolute Nucleated RBC 0.00 (0.00-0.012) x10^3u/L Lymphocytes % 9.2 L (21.8-53.1) % Monocytes % 8.1 (5.3-12.2) % Eosinophils % 0.1 L (0.8-7.0) % Basophils % 0.1 L (0.2-1.2) % Absolute Granulocytes 9.71 H (1.78-5.38) x10^3/uL Basophils # 0.01 (0.01-0.08) x10^3/uL pO2/FiO2 Ratio % VBG pH (7.32-7.42) VBG pCO2 at Pat Temp (42-55) mm/Hg VBG pO2 at Pat Temp (25-40) mm/Hg VBG HCO3 (22-28) meq/L VBG O2 Sat (Salima) (95-100) VBG Base Excess (-2.0-2.0) VBG Hemoglobin VBG Carboxyhemoglobin (0.0-6.9) % T HGB POC Potassium (3.5-5.1) Sodium (135-145) mmol/L Potassium (3.5-5.1) mmol/L Chloride (98-107) mmol/L Carbon Dioxide (22-30) mmol/L Anion Gap (5-15) MEQ/L BUN (9-20) mg/dL Creatinine (0.66-1.25) mg/dL Estimated GFR ML/MIN Glucose (74-106) mg/dL Lactic Acid (0.4-2.0) Calcium (8.4-10.2) mg/dL Magnesium 1.6 (1.6-2.3) mg/dL Total Bilirubin (0.2-1.3) mg/dL AST (17-59) U/L ALT (0-50) U/L Alkaline Phosphatase (38-126) U/L Troponin I < 0.012 (0.000-0.033) ng/mL Serum Total Protein (6.3-8.2) g/dL Albumin (3.5-5.0) g/dL Influenza Type A Ag (NEGATIVE) Influenza Type B Ag (NEGATIVE) RSV (PCR) (NEGATIVE) SARS-CoV-2 (PCR) (NEGATIVE) Radiology Exams: Radiology Procedures Category Date Time Status ARTERIAL BILAT LOWER EXTREMITY [US] Routine Exams 02/07/24 14:55 Completed CHEST 1 VIEW (PORTABLE) Routine Exams 02/08/24 07:00 Ordered CHEST 1 VIEW (PORTABLE) Stat Exams 02/07/24 06:40 Completed CHEST 1 VIEW (PORTABLE) Stat Exams 02/07/24 08:29 Completed Assessment/Plan (1) Pneumothorax Current Visit: Yes Status: Acute Assessment & Plan: -Surgery consulted for management of chest tube/heimlich valve -supplemental oxygen with goal spo2 > 94% -Repeat cxr 02/08/2402/07: -CXR reviewed with improvement Code(s): J93.9 - PNEUMOTHORAX, UNSPECIFIED (2) Right pulmonary infiltrate on CXR Current Visit: Yes Status: Acute Assessment & Plan: -ceftriaxone started in ED- will continue - add azithromycin -supplemental oxygen -prednisone -bcult pending 02/07: -CXR from 02/07 reviewed with no infiltrate -discontinue prednisone Code(s): R91.8 - OTHER NONSPECIFIC ABNORMAL FINDING OF LUNG FIELD (3) HTN (hypertension) Current Visit: Yes Status: Acute Assessment & Plan: -continue home meds/hold lisinopril for JETT Code(s): I10 - ESSENTIAL (PRIMARY) HYPERTENSION (4) HLD (hyperlipidemia) Current Visit: Yes Status: Acute Assessment & Plan: -continue home regimen Code(s): E78.5 - HYPERLIPIDEMIA, UNSPECIFIED (5) Chest tube in place Current Visit: Yes Status: Acute Assessment & Plan: -placement confirmed with cxr -surgery consulted for management Hypercalemia -mild at 10.3- recheck in the morning -IVF 02/07: -CMP reviewed - calcium now WNL -discontinue fluids JETT - mild -hold lisinopril -Avoid nephrotoxic medications -monitor renal/lytes -IVF - 500ml then stop 02/07: -CMP reviewed, creat now at baseline at 1.06- resolved -discontinue fluids Restless Less -Ropinirole 0.25mg x 2 days then may increase to 0.5mg -arterial duplex 02/07: -Art duplex reviewed, negative for significant stenosis Code(s): J93.9 - PNEUMOTHORAX, UNSPECIFIED (2) Right pulmonary infiltrate on CXR Current Visit: Yes Status: Acute Code(s): R91.8 - OTHER NONSPECIFIC ABNORMAL FINDING OF LUNG FIELD (3) HTN (hypertension) Current Visit: Yes Status: Acute Code(s): I10 - ESSENTIAL (PRIMARY) HYPERTENSION (4) HLD (hyperlipidemia) Current Visit: Yes Status: Acute Code(s): E78.5 - HYPERLIPIDEMIA, UNSPECIFIED (5) Chest tube in place Current Visit: Yes Status: Acute Code(s): Z96.89 - PRESENCE OF OTHER SPECIFIED FUNCTIONAL IMPLANTS (6) JETT (acute kidney injury) Current Visit: Yes Status: Acute Code(s): N17.9 - ACUTE KIDNEY FAILURE, UNSPECIFIED (7) Hypercalcemia Current Visit: Yes Status: Acute Code(s): E83.52 - HYPERCALCEMIA (8) Restless legs Current Visit: Yes Status: Acute
--- NOTE | 2024-02-08 08:56 | XRAY ---
Indication: Follow-up pneumothorax. Comparison: One day earlier. Portable chest again demonstrates right base chest tube with tip projecting medial right base. New tiny subcutaneous emphysema at tube insertion site. Minimally enlarging 5-10% right apical pneumothorax. Remaining heart and left lung unremarkable again with incidental calcified granulomas.
[2024-02-08] MEDS: ROCEPHIN 1 GM / 100 ML NaCl 1 GM/100 ML IVPB IV SCH (09:39)
[2024-02-08] MEDS: Lopressor 50 MG PO SCH (09:39)
[2024-02-08] MEDS ORDERED: NON-FORMULARY ITEM (Omeprazole [Omeprazole] 40 MG Capsule.Dr) PO SCH (10:00)
[2024-02-08] MEDS ORDERED: [UNRECOGNIZED DRUG - OTHER] PO SCH (10:00)
[2024-02-08] MEDS ORDERED: MULTIVIT WITH IRON MINERALS PO SCH (10:00)
--- NOTE | 2024-02-08 13:37 | XRAY ---
Indication: Increasing short of breath. Comparison: Taken earlier in the day. Portable chest obtained with inspiration/expiration demonstrates grossly stable small right apical pneumothorax, right base chest tube in situ with minimal subcutaneous emphysema, and incidental right lateral calcified granulomas. Remaining heart and left lung unremarkable. CT may yield further information if there remains clinical concern.
[2024-02-09 04:45] LABS: Absolute Neutrophil Ct (ANC) 5.76 x10^3/uL (1.78-5.38); BASOPHIL % 0.3 % (0.2-1.2); Basophil (Absolute #) 0.03 x10^3/uL (0.01-0.08); Eosinophil % 0.8 % (0.8-7.0); Eosinophil (Absolute #) 0.09 x10^3/uL (0.04-0.54); Hematocrit 37.3 % (40.1-51.0); Hemoglobin 12.4 g/dL (13.7-17.5); IMMATURE GRAN # 0.03 x10^3u/L (0.001-0.031); IMMATURE GRAN % 0.3 % (0.001-0.429); Lymphocytes % 31.7 % (21.8-53.1); Mean Cell Volume 101.4 fL (79.0-92.2); Mean Corpuscular Hemoglobin 33.7 pg (25.7-32.2); Mean Corpuscular Hgb Concent. 33.2 g/dL (32.3-36.5); Mean Platelet Volume 10.2 fL (9.4-12.4); Monocyte (Absolute #) 1.41 x10^3/uL (0.30-0.82); Monocytes % 13.2 % (5.3-12.2); Neutrophil % 53.7 % (34.0-67.9); Platelet Count 221 x10^3/uL (163-337); Red Blood Count 3.68 x10^6/uL (4.63-6.08); Red Cell Distribution Width 13.6 % (11.6-14.4); White Blood Count 10.7 x10^3/uL (4.23-9.07)
--- NOTE | 2024-02-09 05:05 | PCM.NOTE ---
Date and Time: 02/09/24 0503 Subjective Assessment: is a 68 year old male with a pmhx of HLD, HTN, and lung collapse July of 2023 presented to ED 02/07/24 with complaints of progressive shortness of breath. Patient states his symptoms began about one week ago. At that time he had a cough with copious amounts of clear production, sore throat, and schroeder bjective fever. He reports taking Nyquil for his symptoms and felt better until about Wednesday when his cough and shortness of breath came back. The shortness of breath progressively got worse over the weekend with today being the worst he felt. He reports back in July he had a collapsed lung and spent a week a [facility] with a chest tube/hemlich valve. Upon arrival to ED patient was tachypneic and hypertensive with spo2 in the low 90's. CXR showing recurrent 50% right lung pneumothorax with right base subsegmental atelctasis. Right chest tube/Heimlich valve placed with spo2 improving to 92/93%. Repeat cxr with noted placement and RLL pneumonia. Lab findings significant for JETT with creat at 1.28 (baseline aroud 1.1) and hypercalcemia at 10.3. Respiratory panel negative. Plan for observation overnight with abx for treatment of pneumonia and right pneumothoraxs. CXR results from 02/08/24 showing minimal enlarging 5-10% right apical pneumothorax. Surgery consulted with no further recommendations. 02/07: Met with patient bedside. Endorses improvement of dyspnea and increased green/clear production with cough. Discussed CXR results showing minimal enlarging 5-10% right apical pneumothorax. Patient noted this afternoon with worsening SOB - repeat CXR ordered. General surgery consulted- appreciate recs. Denies fever, cp, abdominal pain, LANDEROS, dizziness, N/V/D. 02/09/24: No overnight events noted. Dyspnea has improved. Cough with clear production. CXR results from today with improvement. Surgery following. No infiltrates noted on CXR. Will dc abx. Denies fever, cp, abdominal pain, LANDEROS, dizziness, N/V/D. - Review of Systems Constitutional: No Symptoms Eyes: No Symptoms Ears, Nose, & Throat: No Symptoms Respiratory: Cough, Short Of Breath Cardiac: No Symptoms Abdominal/Gastrointestinal: No Symptoms Genitourinary Symptoms: No Symptoms Musculoskeletal: No Symptoms Skin: No Symptoms Neurological: No Symptoms Psychological: No Symptoms Endocrine: No Symptoms Hematologic/Lymphatic: No Symptoms Immunological/Allergic: No Symptoms Objective Exam General Appearance: no apparent distress Neurologic Exam: alert, oriented x 3, cooperative Skin Exam: normal color Eye Exam: PERRL Ears, Nose, Throat Exam: normal ENT inspection Neck Exam: normal inspection Respiratory Exam: diminished breath sounds Cardiovascular Exam: regular rate/rhythm, normal heart sounds Gastrointestinal/Abdomen Exam: soft, normal bowel sounds Extremity Exam: normal inspection Back Exam: normal inspection Male Genitalia Exam: deferred Rectal Exam: deferred Objective Data Vital Signs: Vital Signs - 24 hr Temp Pulse Resp BP BP Pulse Ox 02/09/24 04:59 158/85 02/09/24 04:00 97.8 F 69 17 183/86 92 L 02/08/24 23:00 98.1 F 67 18 157/77 96 02/08/24 19:34 97.4 F 71 19 129/68 95 02/08/24 19:25 67 18 96 02/08/24 17:00 97.9 F 65 16 146/91 94 L 02/08/24 11:51 97.4 F 63 16 141/68 94 L 02/08/24 11:36 97 02/08/24 11:00 97 02/08/24 09:57 96 02/08/24 08:22 70 16 97 02/08/24 07:18 97.9 F 70 16 140/82 95 Pain Assessment - Last Documented Pain Intensity 0 Pain Scale Used 0-10 Pain Scale Intake and Output: Intake & Output 02/06/24 02/07/24 02/08/24 02/09/24 11:59 11:59 11:59 11:59 Intake Total 840 840 Balance 840 840 Weight 81.647 kg 81.3 kg 81.3 kg Lab Results: Lab Results-Last 24 Hours 02/08/24 02/08/24 02/09/24 Range/Units 04:50 12:23 04:40 WBC 10.7 H (4.23-9.07) x10^3/uL RBC 3.68 L (4.63-6.08) x10^6/uL Hgb 12.4 L (13.7-17.5) g/dL Hct 37.3 L (40.1-51.0) % MCV 101.4 H (79.0-92.2) fL MCH 33.7 H (25.7-32.2) pg MCHC 33.2 (32.3-36.5) g/dL RDW 13.6 (11.6-14.4) % Plt Count 221 (163-337) x10^3/uL MPV 10.2 (9.4-12.4) fL Gran % 53.7 (34.0-67.9) % Immature Gran % (Auto) 0.3 (0.001-0.429) % Nucleat RBC Rel Count 0.0 (0.00-0.2) % Eos # (Auto) 0.09 (0.04-0.54) x10^3/uL Immature Gran # (Auto) 0.03 (0.001-0.031) x10^3u/L Absolute Lymphs (auto) 3.40 (1.32-3.57) x10^3/uL Absolute Monos (auto) 1.41 H (0.30-0.82) x10^3/uL Absolute Nucleated RBC 0.00 (0.00-0.012) x10^3u/L Lymphocytes % 31.7 (21.8-53.1) % Monocytes % 13.2 H (5.3-12.2) % Eosinophils % 0.8 (0.8-7.0) % Basophils % 0.3 (0.2-1.2) % Absolute Granulocytes 5.76 H (1.78-5.38) x10^3/uL Basophils # 0.03 (0.01-0.08) x10^3/uL Sodium 139 (135-145) mmol/L Potassium 4.0 (3.5-5.1) mmol/L Chloride 107 (98-107) mmol/L Carbon Dioxide 25 (22-30) mmol/L Anion Gap 10.8 (5-15) MEQ/L BUN 22 H (9-20) mg/dL Creatinine 1.06 (0.66-1.25) mg/dL Estimated GFR 76.0 ML/MIN Glucose 147 H (74-106) mg/dL POC Glucometer 123 H (74 to 106) mg/dL Calcium 9.5 (8.4-10.2) mg/dL Total Bilirubin 0.30 (0.2-1.3) mg/dL AST 32 (17-59) U/L ALT 42 (0-50) U/L Alkaline Phosphatase 56 (38-126) U/L Serum Total Protein 6.7 (6.3-8.2) g/dL Albumin 4.0 (3.5-5.0) g/dL Radiology Exams: Radiology Procedures Category Date Time Status ARTERIAL BILAT LOWER EXTREMITY [US] Routine Exams 02/07/24 14:55 Completed CHEST 1 VIEW (PORTABLE) Routine Exams 02/08/24 07:00 Completed CHEST 1 VIEW (PORTABLE) Stat Exams 02/07/24 06:40 Completed CHEST 1 VIEW (PORTABLE) Stat Exams 02/07/24 08:29 Completed CHEST 1 VIEW (PORTABLE) Stat Exams 02/08/24 12:26 Completed Multi-Disciplinary Progress Notes: Multi-Disciplinary Progress Notes 02/08/24 17:53 Respiratory Note by Gogo Wang ORDERED VERBALLY TO NURSE PER DR. Chandu MOLINA DUE TO PT'S REQUEST. I SPOKE WITH THE PT ABOUT THE FLUTTER AND IT'S CONTRAINDICATIONS WITH A PNEUMOTHORAX. PT DECIDED TO NOT DO AT THIS TIME. PT DOES HAVE A PRODUCTIVE COUGH. Initialized on 02/08/24 17:53 - END OF NOTE Assessment/Plan (1) Pneumothorax Current Visit: Yes Status: Acute Assessment & Plan: -Surgery consulted for management of chest tube/heimlich valve -supplemental oxygen with goal spo2 > 94% -Repeat cxr 02/08/2402/07: -CXR reviewed from 02/07 showing minimal enlarging 5-10% right apical pneumothorax. Patient noted this afternoon with worsening SOB - repeat CXR ordered. 02/08: -CXR from 02/08 reviewed with small improvement -Dyspnea improved -On RA Code(s): J93.9 - PNEUMOTHORAX, UNSPECIFIED (2) Right pulmonary infiltrate on CXR Current Visit: Yes Status: Acute Assessment & Plan: -ceftriaxone started in ED- will continue - add azithromycin -supplemental oxygen -prednisone -bcult pending 02/07: -CXR from 02/07 reviewed with no infiltrate showing minimal enlarging 5-10% right apical pneumothorax. Patient noted this afternoon with worsening SOB - rep eat CXR ordered. -discontinue prednisone 02/08: -No infiltrate noted on cxr - will dc IV abx -start doxycycline Code(s): R91.8 - OTHER NONSPECIFIC ABNORMAL FINDING OF LUNG FIELD (3) HTN (hypertension) Current Visit: Yes Status: Acute Assessment & Plan: -continue home meds/hold lisinopril for JETT 02/08: -resume lisinopril - JETT resolved Code(s): I10 - ESSENTIAL (PRIMARY) HYPERTENSION (4) HLD (hyperlipidemia) Current Visit: Yes Status: Acute Assessment & Plan: -continue home regimen Code(s): E78.5 - HYPERLIPIDEMIA, UNSPECIFIED (5) Chest tube in place Current Visit: Yes Status: Acute Assessment & Plan: -placement confirmed with cxr -surgery consulted for management 02/08: -Surgery following - CXR with small improvement today Hypercalemia -mild at 10.3- recheck in the morning -IVF 02/07: -CMP reviewed - calcium now WNL -discontinue fluids JETT - mild -hold lisinopril -Avoid nephrotoxic medications -monitor renal/lytes -IVF - 500ml then stop 02/07: -CMP reviewed, creat now at baseline at 1.06- resolved -discontinue fluids 02/08: -CMP reviewed with creat remaining at baseline - okay to resume lisinopril Restless Less -Ropinirole 0.25mg x 2 days then may increase to 0.5mg -arterial duplex 02/07: -Art duplex reviewed, negative for significant stenosis Code(s): J93.9 - PNEUMOTHORAX, UNSPECIFIED Code(s): J93.9 - PNEUMOTHORAX, UNSPECIFIED (2) Right pulmonary infiltrate on CXR Current Visit: Yes Status: Acute Code(s): R91.8 - OTHER NONSPECIFIC ABNORMAL FINDING OF LUNG FIELD (3) HTN (hypertension) Current Visit: Yes Status: Acute Code(s): I10 - ESSENTIAL (PRIMARY) HYPERTENSION (4) HLD (hyperlipidemia) Current Visit: Yes Status: Acute Code(s): E78.5 - HYPERLIPIDEMIA, UNSPECIFIED (5) Chest tube in place Current Visit: Yes Status: Acute Code(s): Z96.89 - PRESENCE OF OTHER SPECIFIED FUNCTIONAL IMPLANTS (6) JETT (acute kidney injury) Current Visit: Yes Status: Acute Code(s): N17.9 - ACUTE KIDNEY FAILURE, UNSPECIFIED (7) Hypercalcemia Current Visit: Yes Status: Acute Code(s): E83.52 - HYPERCALCEMIA (8) Restless legs Current Visit: Yes Status: Acute
[2024-02-09 05:08] LABS: ALBUMIN 3.7 g/dL (3.5-5.0); ANION GAP 10.3 MEQ/L (5-15); BILIRUBIN,TOTAL 0.2 mg/dL (0.2-1.3); Calcium 9.5 mg/dL (8.4-10.2); Creatinine 1 1.03 mg/dL (0.66-1.25); EST GLOMERULAR FILTRATION RATE 78.6 ML/MIN; Potassium 3.8 mmol/L (3.5-5.1); Total Protein 6.3 g/dL (6.3-8.2)
--- NOTE | 2024-02-09 08:52 | XRAY ---
Indication: Follow-up pneumothorax. Comparison: One day earlier. Portable chest demonstrates slightly smaller appearing right apical pneumothorax. Stable right base chest tube with tiny subcutaneous emphysema. Remaining heart and lungs unremarkable again with incidental bilateral calcified granulomas. No new cardiopulmonary abnormalities.
[2024-02-09] MEDS: Zestril 20 MG PO SCH (11:34)
[2024-02-09] MEDS: Vibramycin 100 MG PO SCH (17:10)
[2024-02-10 05:16] LABS: Absolute Neutrophil Ct (ANC) 4.25 x10^3/uL (1.78-5.38); BASOPHIL % 0.5 % (0.2-1.2); Basophil (Absolute #) 0.05 x10^3/uL (0.01-0.08); Eosinophil % 2.3 % (0.8-7.0); Eosinophil (Absolute #) 0.21 x10^3/uL (0.04-0.54); Hematocrit 39.7 % (40.1-51.0); Hemoglobin 13.4 g/dL (13.7-17.5); IMMATURE GRAN # 0.04 x10^3u/L (0.001-0.031); IMMATURE GRAN % 0.4 % (0.001-0.429); Lymphocyte (Absolute #) 3.46 x10^3/uL (1.32-3.57); Lymphocytes % 37.9 % (21.8-53.1); Mean Cell Volume 100.8 fL (79.0-92.2); Mean Corpuscular Hgb Concent. 33.8 g/dL (32.3-36.5); Mean Platelet Volume 10.8 fL (9.4-12.4); Monocyte (Absolute #) 1.11 x10^3/uL (0.30-0.82); Monocytes % 12.2 % (5.3-12.2); Neutrophil % 46.7 % (34.0-67.9); Platelet Count 225 x10^3/uL (163-337); Red Blood Count 3.94 x10^6/uL (4.63-6.08); White Blood Count 9.1 x10^3/uL (4.23-9.07)
--- NOTE | 2024-02-10 05:28 | PCM.NOTE ---
Date and Time: 02/10/24 0526 Subjective Assessment: is a 68 year old male with a pmhx of HLD, HTN, and lung collapse July of 2023 presented to ED 02/07/24 with complaints of progressive shortness of breath. Patient states his symptoms began about one week ago. At that time he had a cough with copious amounts of clear production, sore throat, and schroeder bjective fever. He reports taking Nyquil for his symptoms and felt better until about Wednesday when his cough and shortness of breath came back. The shortness of breath progressively got worse over the weekend with today being the worst he felt. He reports back in July he had a collapsed lung and spent a week a [facility] with a chest tube/hemlich valve. Upon arrival to ED patient was tachypneic and hypertensive with spo2 in the low 90's. CXR showing recurrent 50% right lung pneumothorax with right base subsegmental atelctasis. Right chest tube/Heimlich valve placed with spo2 improving to 92/93%. Repeat cxr with noted placement and RLL pneumonia. Lab findings significant for JETT with creat at 1.28 (baseline aroud 1.1) and hypercalcemia at 10.3. Respiratory panel negative. Plan for observation overnight with abx for treatment of pneumonia and right pneumothoraxs. CXR results from 02/08/24 showing minimal enlarging 5-10% right apical pneumothorax. Surgery consulted with no further recommendations. 02/07: Met with patient bedside. Endorses improvement of dyspnea and increased green/clear production with cough. Discussed CXR results showing minimal enlarging 5-10% right apical pneumothorax. Patient noted this afternoon with worsening SOB - repeat CXR ordered. General surgery consulted- appreciate recs. Denies fever, cp, abdominal pain, LANDEROS, dizziness, N/V/D. 02/09/24: No overnight events noted. Dyspnea has improved. Cough with clear production. CXR results from today with improvement. Surgery following. No infiltrates noted on CXR. Will dc abx. Denies fever, cp, abdominal pain, LANDEROS, dizziness, N/V/D. Objective Data Vital Signs: Vital Signs - 24 hr Temp Pulse Resp BP Pulse Ox 02/10/24 03:45 97.7 F 58 L 18 174/94 95 02/10/24 00:00 98.1 F 63 18 174/90 98 02/09/24 20:00 98.2 F 60 19 131/59 99 02/09/24 16:00 97.9 F 58 L 16 174/90 95 02/09/24 11:40 98.0 F 65 16 146/72 94 L 02/09/24 08:14 73 14 96 02/09/24 07:43 97.8 F 66 16 167/86 94 L Pain Assessment - Last Documented Pain Intensity 0 Pain Scale Used 0-10 Pain Scale Intake and Output: Intake & Output 02/07/24 02/08/24 02/09/24 02/10/24 11:59 11:59 11:59 11:59 Intake Total 840 1420 1640 Balance 840 1420 1640 Weight 81.647 kg 81.3 kg 81.3 kg Lab Results: Lab Results-Last 24 Hours 02/10/24 Range/Units 05:04 WBC 9.1 H (4.23-9.07) x10^3/uL RBC 3.94 L (4.63-6.08) x10^6/uL Hgb 13.4 L (13.7-17.5) g/dL Hct 39.7 L (40.1-51.0) % MCV 100.8 H (79.0-92.2) fL MCH 34.0 H (25.7-32.2) pg MCHC 33.8 (32.3-36.5) g/dL RDW 13.0 (11.6-14.4) % Plt Count 225 (163-337) x10^3/uL MPV 10.8 (9.4-12.4) fL Gran % 46.7 (34.0-67.9) % Immature Gran % (Auto) 0.4 (0.001-0.429) % Nucleat RBC Rel Count 0.0 (0.00-0.2) % Eos # (Auto) 0.21 (0.04-0.54) x10^3/uL Immature Gran # (Auto) 0.04 H (0.001-0.031) x10^3u/L Absolute Lymphs (auto) 3.46 (1.32-3.57) x10^3/uL Absolute Monos (auto) 1.11 H (0.30-0.82) x10^3/uL Absolute Nucleated RBC 0.00 (0.00-0.012) x10^3u/L Lymphocytes % 37.9 (21.8-53.1) % Monocytes % 12.2 (5.3-12.2) % Eosinophils % 2.3 (0.8-7.0) % Basophils % 0.5 (0.2-1.2) % Absolute Granulocytes 4.25 (1.78-5.38) x10^3/uL Basophils # 0.05 (0.01-0.08) x10^3/uL Radiology Exams: Radiology Procedures Category Date Time Status CHEST 1 VIEW (PORTABLE) Routine Exams 02/08/24 07:00 Completed CHEST 1 VIEW (PORTABLE) Stat Exams 02/08/24 12:26 Completed CHEST 1 VIEW (PORTABLE) Urgent Exams 02/09/24 08:16 Completed CHEST WITHOUT CONTRAST [CT] Routine Exams 02/09/24 20:13 Taken Multi-Disciplinary Progress Notes: Multi-Disciplinary Progress Notes 02/09/24 12:30 (created 02/09/24 14:14) Case Management Note by Priti Miranda S/W PATIENT- HE CONTINUES TO DENY ANY NEW NEEDS AT TIME OF DC. HE PLANS TO DC HOME TO HIS PLF AT TIME OF DC Initialized on 02/09/24 14:14 - END OF NOTE Assessment/Plan (1) Pneumothorax Current Visit: Yes Status: Acute Assessment & Plan: -Surgery consulted for management of chest tube/heimlich valve -supplemental oxygen with goal spo2 > 94% -Repeat cxr 02/08/2402/07: -CXR reviewed from 02/07 showing minimal enlarging 5-10% right apical pneumothorax. Patient noted this afternoon with worsening SOB - repeat CXR ordered. 02/08: -CXR from 02/08 reviewed with small improvement -Dyspnea improved -On RA Code(s): J93.9 - PNEUMOTHORAX, UNSPECIFIED (2) Right pulmonary infiltrate on CXR Current Visit: Yes Status: Acute Assessment & Plan: -ceftriaxone started in ED- will continue - add azithromycin -supplemental oxygen -prednisone -bcult pending 02/07: -CXR from 02/07 reviewed with no infiltrate showing minimal enlarging 5-10% right apical pneumothorax. Patient noted this afternoon with worsening SOB - repeat CXR ordered. -discontinue prednisone 02/08: -No infiltrate noted on cxr - will dc IV abx -start doxycycline Code(s): R91.8 - OTHER NONSPECIFIC ABNORMAL FINDING OF LUNG FIELD (3) HTN (hypertension) Current Visit: Yes Status: Acute Assessment & Plan: -continue home meds/hold lisinopril for JETT 02/08: -resume lisinopril - JETT resolved Code(s): I10 - ESSENTIAL (PRIMARY) HYPERTENSION (4) HLD (hyperlipidemia) Current Visit: Yes Status: Acute Assessment & Plan: -continue home regimen Code(s): E78.5 - HYPERLIPIDEMIA, UNSPECIFIED (5) Chest tube in place Current Visit: Yes Status: Acute Assessment & Plan: -placement confirmed with cxr -surgery consulted for management 02/08: -Surgery following - CXR with small improvement today Hypercalemia -mild at 10.3- recheck in the morning -IVF 02/07: -CMP reviewed - calcium now WNL -discontinue fluids JETT - mild -hold lisinopril -Avoid nephrotoxic medications -monitor renal/lytes -IVF - 500ml then stop 02/07: -CMP reviewed, creat now at baseline at 1.06- resolved -discontinue fluids 02/08: -CMP reviewed with creat remaining at baseline - okay to resume lisinopril Restless Less -Ropinirole 0.25mg x 2 days then may increase to 0.5mg -arterial duplex 02/07: -Art duplex reviewed, negative for significant stenosis Code(s): J93.9 - PNEUMOTHORAX, UNSPECIFIED (2) Right pulmonary infiltrate on CXR Current Visit: Yes Status: Acute Code(s): R91.8 - OTHER NONSPECIFIC ABNORMAL FINDING OF LUNG FIELD (3) HTN (hypertension) Current Visit: Yes Status: Acute Code(s): I10 - ESSENTIAL (PRIMARY) HYPERTENSION (4) HLD (hyperlipidemia) Current Visit: Yes Status: Acute Code(s): E78.5 - HYPERLIPIDEMIA, UNSPECIFIED (5) Chest tube in place Current Visit: Yes Status: Acute Code(s): Z96.89 - PRESENCE OF OTHER SPECIFIED FUNCTIONAL IMPLANTS (6) JETT (acute kidney injury) Current Visit: Yes Status: Acute Code(s): N17.9 - ACUTE KIDNEY FAILURE, UNSPECIFIED (7) Hypercalcemia Current Visit: Yes Status: Acute Code(s): E83.52 - HYPERCALCEMIA (8) Restless legs Current Visit: Yes Status: Acute
[2024-02-10 05:30] LABS: ALBUMIN 4.2 g/dL (3.5-5.0); ANION GAP 11.8 MEQ/L (5-15); BILIRUBIN,TOTAL 0.3 mg/dL (0.2-1.3); Calcium 9.6 mg/dL (8.4-10.2); Creatinine 1 0.9 mg/dL (0.66-1.25); EST GLOMERULAR FILTRATION RATE 92.5 ML/MIN; Potassium 3.7 mmol/L (3.5-5.1)
--- NOTE | 2024-02-10 08:47 | XRAY ---
Indication: Right pneumothorax. Multiple contiguous axial images obtained through the chest without contrast. Comparison: August 15, 2023. Also portable chest taken earlier in the day. Tiny right pneumothorax, less than 5%. Also tiny right effusion. Right mid chest tube with tip projecting anterior to right middle lobe. Right chest wall demonstrates mild subcutaneous emphysema at chest tube insertion site. Remaining lungs demonstrates a few bilateral calcified granulomas, largest right lower lobe measuring 4 cm. No suspicious pulmonary mass/nodule, infiltrate, or consolidation. Heart not enlarged. Aorta mildly arteriosclerotic without aneurysm. Tiny right hilar calcified nodes. No pathologic mediastinal lymphadenopathy. Bony thorax intact with stable remote superior T8 endplate fracture/Schmorl node. Limited upper abdomen again demonstrates nonspecific bilateral perinephric stranding. Impression: 1. Tiny right pneumothorax and tiny effusion with chest tube in situ. Right chest wall subcutaneous emphysema at chest tube insertion site. 2. Chronic findings including remote T8 endplate fracture/Schmorl node and evidence for old granulomatous disease.
[2024-02-10 09:36] VITALS: PULSE 57
--- NOTE | 2024-02-10 11:19 | CONS ---
REASON FOR CONSULTATION: Pneumothorax. HISTORY: A 68-year-old white male who has had a pneumothorax back in July. It resolved. It was his first episode. He states he was working too hard. He has a very tough job. He lifts lots of things. I think he was lifting a refrigerator and he developed shortness of breath again here this episode. Came into the emergency room. He has a 50% pneumothorax. He had a pigtail catheter placed with a Heimlich valve. The Heimlich valve is fluctuating with inspiration and it looks like still leaking some air. I did not put this through a cup of water, just when I was watching it looked like it was leaking some air. The connection is satisfactory. He had some subcutaneous emphysema earlier today but is has resolved. I think his tube probably was clogged at some point for a minute. He is walking around. He is doing well. He is having continuation of air leak today. Dr. Soto is here tomorrow, will take a look at him. This is his second pneumothorax on the same side. I, at least, mentioned a video-assisted thorascopic pleurodesis. Usually, we wait until the third episode although we do do this on the second episode at times. He does not have any commercial flight or any odd reasons to [place] this. IMPRESSION: Second pneumothorax same side with a persistent leak. We will observe for a short while. If he does not start improving, we will offer surgical intervention this time. If he comes in a third time, we certainly will offer him surgical intervention.
--- NOTE | 2024-02-10 11:30 | PCM.DS ---
Discharge Summary Date of Admission: 02/07/24 13:32 Date of Discharge: 02/10/24 Admitting Physician: BONIFACIO MUNOZ MD Consults: Consults on Case 02/07/24 14:21 Consult Surgery ROUTINE 02/07/24 14:55 Consult Surgery ROUTINE Primary Care Provider: CHUNG ARTEAGA NP Allergies Allergies No Known Drug Allergies Allergy (Verified 02/07/24 14:54) Hospital Summary - Hospital Course Hospital Course: is a 68 year old male with a pmhx of HLD, HTN, and lung collapse July of 2023 presented to ED 02/07/24 with complaints of progressive shortness of breath. Patient states his symptoms began about one week ago. At that time he had a cough with copious amounts of clear production, sore throat, and subjective fever. He reports taking Nyquil for his symptoms and felt better until about Wednesday when his cough and shortness of breath came back. The shortness of breath progressively got worse over the weekend with today being the worst he felt. He reports back in July he had a collapsed lung and spent a week a [facility] with a chest tube/hemlich valve. Upon arrival to ED patient was tachypneic and hypertensive with spo2 in the low 90's. CXR showing recurrent 50% right lung pneumothorax with right base subsegmental atelctasis. Right chest tube/Heimlich valve placed with spo2 improving to 92/93%. Repeat cxr with noted placement and RLL pneumonia. Lab findings significant for JETT with creat at 1.28 (baseline aroud 1.1) and hypercalcemia at 10.3. Respiratory panel negative. Plan for observation overnight with abx for treatment of pneumonia and right pneumothorax. CXR results from 02/08/24 showing minimal enlarging 5-10% right apical pneumothorax. CT chest from 02/09/24 showing right pneumothorax < 5%. Surgery consulted with recommendations for transfer to higher level of care for pleurodesis as this is the second occurrence. Patient agreeable to plan and transfer. Accepted at [facility]. Discharge Note New Diagnosis: right pneumothorax transfer Latest Assessment & Plan (1) Pneumothorax Current Visit: Yes Status: Acute Assessment & Plan: -Surgery consulted for management of chest tube/heimlich valve -supplemental oxygen with goal spo2 > 94% -Repeat cxr 02/08/2402/07: -CXR reviewed from 02/07 showing minimal enlarging 5-10% right apical pneumothorax. Patient noted this afternoon with worsening SOB - repeat CXR order ed. 02/08: -CXR from 02/08 reviewed with small improvement -Dyspnea improved -On RA Code(s): J93.9 - PNEUMOTHORAX, UNSPECIFIED (2) Right pulmonary infiltrate on CXR Current Visit: Yes Status: Acute Assessment & Plan: -ceftriaxone started in ED- will continue - add azithromycin -supplemental oxygen -prednisone -bcult pending 02/07: -CXR from 02/07 reviewed with no infiltrate showing minimal enlarging 5-10% right apical pneumothorax. Patient noted this afternoon with worsening SOB - repeat CXR ordered. -discontinue prednisone 02/08: -No infiltrate noted on cxr - will dc IV abx -start doxycycline Code(s): R91.8 - OTHER NONSPECIFIC ABNORMAL FINDING OF LUNG FIELD (3) HTN (hypertension) Current Visit: Yes Status: Acute Assessment & Plan: -continue home meds/hold lisinopril for JETT 02/08: -resume lisinopril - JETT resolved Code(s): I10 - ESSENTIAL (PRIMARY) HYPERTENSION (4) HLD (hyperlipidemia) Current Visit: Yes Status: Acute Assessment & Plan: -continue home regimen Code(s): E78.5 - HYPERLIPIDEMIA, UNSPECIFIED (5) Chest tube in place Current Visit: Yes Status: Acute Assessment & Plan: -placement confirmed with cxr -surgery consulted for management 02/08: -Surgery following - CXR with small improvement today Hypercalemia -mild at 10.3- recheck in the morning -IVF 02/07: -CMP reviewed - calcium now WNL -discontinue fluids JETT - mild -hold lisinopril -Avoid nephrotoxic medications -monitor renal/lytes -IVF - 500ml then stop 02/07: -CMP reviewed, creat now at baseline at 1.06- resolved -discontinue fluids 02/08: -CMP reviewed with creat remaining at baseline - okay to resume lisinopril Restless Less -Ropinirole 0.25mg x 2 days then may increase to 0.5mg -arterial duplex 02/07: -Art duplex reviewed, negative for significant stenosis Code(s): J93.9 - PNEUMOTH I spent 35 minutes [id number] with the patient on the day of discharge performing discharge exam, discussing hospital stay and discharge instructions with patient and caregivers, preparation of discharge records, prescriptions & referral forms and addressing any questions/concerns the patient had as documented above. - Vitals & Intake/Output Vital Signs: Vital Signs Temperature 97.8 F 02/10/24 07:54 Pulse Rate 57 L 02/10/24 09:36 Respiratory Rate 20 02/10/24 07:54 Blood Pressure 175/86 02/10/24 09:36 O2 Sat by Pulse Oximetry 95 02/10/24 07:54 Intake & Output: Intake & Output 02/07/24 02/08/24 02/09/24 02/10/24 11:59 11:59 11:59 11:59 Intake Total 840 1420 2120 Balance 840 1420 2120 Weight 81.647 kg 81.3 kg 81.3 kg - Lab Result Diagrams: 02/10/24 05:04 02/10/24 05:04 Lab Results-Last 24 Hrs: Lab Results-Last 24 Hours 02/10/24 02/10/24 Range/Units 05:04 05:04 WBC 9.1 H (4.23-9.07) x10^3/uL RBC 3.94 L (4.63-6.08) x10^6/uL Hgb 13.4 L (13.7-17.5) g/dL Hct 39.7 L (40.1-51.0) % MCV 100.8 H (79.0-92.2) fL MCH 34.0 H (25.7-32.2) pg MCHC 33.8 (32.3-36.5) g/dL RDW 13.0 (11.6-14.4) % Plt Count 225 (163-337) x10^3/uL MPV 10.8 (9.4-12.4) fL Gran % 46.7 (34.0-67.9) % Immature Gran % (Auto) 0.4 (0.001-0.429) % Nucleat RBC Rel Count 0.0 (0.00-0.2) % Eos # (Auto) 0.21 (0.04-0.54) x10^3/uL Immature Gran # (Auto) 0.04 H (0.001-0.031) x10^3u/L Absolute Lymphs (auto) 3.46 (1.32-3.57) x10^3/uL Absolute Monos (auto) 1.11 H (0.30-0.82) x10^3/uL Absolute Nucleated RBC 0.00 (0.00-0.012) x10^3u/L Lymphocytes % 37.9 (21.8-53.1) % Monocytes % 12.2 (5.3-12.2) % Eosinophils % 2.3 (0.8-7.0) % Basophils % 0.5 (0.2-1.2) % Absolute Granulocytes 4.25 (1.78-5.38) x10^3/uL Basophils # 0.05 (0.01-0.08) x10^3/uL Sodium 140 (135-145) mmol/L Potassium 3.7 (3.5-5.1) mmol/L Chloride 103 (98-107) mmol/L Carbon Dioxide 28 (22-30) mmol/L Anion Gap 11.8 (5-15) MEQ/L BUN 20 (9-20) mg/dL Creatinine 0.90 (0.66-1.25) mg/dL Estimated GFR 92.5 ML/MIN Glucose 109 H (74-106) mg/dL Calcium 9.6 (8.4-10.2) mg/dL Total Bilirubin 0.30 (0.2-1.3) mg/dL AST 55 (17-59) U/L ALT 66 H (0-50) U/L Alkaline Phosphatase 59 (38-126) U/L Serum Total Protein 7.0 (6.3-8.2) g/dL Albumin 4.2 (3.5-5.0) g/dL Micro Results-Entire Visit: Microbiology 02/07/24 07:22 Blood Culture - Preliminary Blood 02/07/24 07:32 Blood Culture - Preliminary Blood - Radiology Exams Ordered Rad Exams-Entire Visit: Radiology Procedures Category Date Time Status CHEST 1 VIEW (PORTABLE) Stat Exams 02/08/24 12:26 Completed CHEST 1 VIEW (PORTABLE) Urgent Exams 02/09/24 08:16 Completed CHEST WITHOUT CONTRAST [CT] Routine Exams 02/09/24 20:13 Completed - Procedures and Test Procedures and Tests throughout Hospitalization: Therapy Orders & Screens 02/07/24 14:35 Respiratory Therapy Consult ONCE Comment: Reason For Exam: Diagnosis: Dyspnea 02/07/24 14:55 Oxygen Nasal Cannula 2 lpm Comment: Respiratory Therapy Consult ONCE Comment: Reason For Exam: 02/07/24 16:34 ST Screen per Nursing Assess ONCE Comment: Protocol Order Physician Instructions: Greater than [address] Admission Screening Reason For Exam: Triggered on Admission Diagnosis: pneumonia/spontaneous pneumo right CVA/Dyshpagia/Aphasia: No Cognitive Deficits: No Dehydration/Nutrition Deficit: No Reflux: No Oral-Motor Difficulties: No Pneumonia: Yes Alf Resident: No Total Points: 5 Discharge Exam General Appearance: no apparent distress Neurologic Exam: alert, oriented x 3, cooperative Eye Exam: PERRL Ears, Nose, Throat Exam: normal ENT inspection Neck Exam: normal inspection Respiratory Exam: diminished breath sounds Cardiovascular Exam: regular rate/rhythm, normal heart sounds Gastrointestinal/Abdomen Exam: soft, normal bowel sounds Male Genitalia Exam: deferred Rectal Exam: deferred Back Exam: normal inspection Extremity Exam: normal inspection Skin Exam: normal color Final Diagnosis/Problem List - Final Discharge Diagnosis/Problem (1) Pneumothorax Current Visit: Yes Status: Acute Code(s): J93.9 - PNEUMOTHORAX, UNSPECIFIED (2) Right pulmonary infiltrate on CXR Current Visit: Yes Status: Acute Code(s): R91.8 - OTHER NONSPECIFIC ABNORMAL FINDING OF LUNG FIELD (3) HTN (hypertension) Current Visit: Yes Status: Acute Code(s): I10 - ESSENTIAL (PRIMARY) HYPERTENSION (4) HLD (hyperlipidemia) Current Visit: Yes Status: Acute Code(s): E78.5 - HYPERLIPIDEMIA, UNSPECIFIED (5) Chest tube in place Current Visit: Yes Status: Acute Code(s): Z96.89 - PRESENCE OF OTHER SPECIFIED FUNCTIONAL IMPLANTS (6) JETT (acute kidney injury) Current Visit: Yes Status: Acute Code(s): N17.9 - ACUTE KIDNEY FAILURE, UNSPECIFIED (7) Hypercalcemia Current Visit: Yes Status: Acute Code(s): E83.52 - HYPERCALCEMIA (8) Restless legs Current Visit: Yes Status: Acute - Discharge Disposition: DC TO [facility] Condition: Stable Prescriptions: New Albuterol/Ipratropium 3ml Neb* [DUONEB 0.5-3 MG/3 ml Neb] 3 ml IH Q6HRT PRN PRN Reason: Shortness Of Breath/Wheezing Doxycycline Hyclate 100 mg [Vibramycin 100 MG] 100 mg PO BIDWM tablet Lisinopril 20 mg [Zestril 20 MG] 20 mg PO DAILY tablet Continue Omeprazole 40 mg PO DAILY Multivit with Iron,Minerals [Theratrum Complete 50 Plus] 1 tab PO DAILY Lisinopril 20 mg [Zestril 20 MG] 20 mg PO DAILY Amlodipine Besylate 5 mg [Norvasc 5 mg] 5 mg PO DAILY Metoprolol Tartrate 50 mg [Lopressor 50 MG] 100 mg PO DAILY Follow up with: CHUNG ARTEAGA NP [Primary Care Provider] -
[2024-02-10] MEDS: MAALOX ES 30 ML UNIT DOSE PO ONE (11:37)
--- NOTE | 2024-02-10 12:30 | PCM.NOTE ---
Date and Time: 02/10/24 1227 Objective Data Vital Signs: Vital Signs - 24 hr Temp Pulse Resp BP Pulse Ox 02/10/24 09:36 57 L 175/86 02/10/24 07:54 97.8 F 65 20 194/108 95 02/10/24 07:21 62 16 95 02/10/24 03:45 97.7 F 58 L 18 174/94 95 02/10/24 00:00 98.1 F 63 18 174/90 98 02/09/24 20:00 98.2 F 60 19 131/59 99 02/09/24 16:00 97.9 F 58 L 16 174/90 95 Pain Assessment - Last Documented Pain Intensity 0 Pain Scale Used 0-10 Pain Scale Intake and Output: Intake & Output 02/08/24 02/09/24 02/10/24 02/11/24 11:59 11:59 11:59 11:59 Intake Total 840 1420 2120 Balance 840 1420 2120 Weight 81.3 kg 81.3 kg Lab Results: Lab Results-Last 24 Hours 02/10/24 02/10/24 Range/Units 05:04 05:04 WBC 9.1 H (4.23-9.07) x10^3/uL RBC 3.94 L (4.63-6.08) x10^6/uL Hgb 13.4 L (13.7-17.5) g/dL Hct 39.7 L (40.1-51.0) % MCV 100.8 H (79.0-92.2) fL MCH 34.0 H (25.7-32.2) pg MCHC 33.8 (32.3-36.5) g/dL RDW 13.0 (11.6-14.4) % Plt Count 225 (163-337) x10^3/uL MPV 10.8 (9.4-12.4) fL Gran % 46.7 (34.0-67.9) % Immature Gran % (Auto) 0.4 (0.001-0.429) % Nucleat RBC Rel Count 0.0 (0.00-0.2) % Eos # (Auto) 0.21 (0.04-0.54) x10^3/uL Immature Gran # (Auto) 0.04 H (0.001-0.031) x10^3u/L Absolute Lymphs (auto) 3.46 (1.32-3.57) x10^3/uL Absolute Monos (auto) 1.11 H (0.30-0.82) x10^3/uL Absolute Nucleated RBC 0.00 (0.00-0.012) x10^3u/L Lymphocytes % 37.9 (21.8-53.1) % Monocytes % 12.2 (5.3-12.2) % Eosinophils % 2.3 (0.8-7.0) % Basophils % 0.5 (0.2-1.2) % Absolute Granulocytes 4.25 (1.78-5.38) x10^3/uL Basophils # 0.05 (0.01-0.08) x10^3/uL Sodium 140 (135-145) mmol/L Potassium 3.7 (3.5-5.1) mmol/L Chloride 103 (98-107) mmol/L Carbon Dioxide 28 (22-30) mmol/L Anion Gap 11.8 (5-15) MEQ/L BUN 20 (9-20) mg/dL Creatinine 0.90 (0.66-1.25) mg/dL Estimated GFR 92.5 ML/MIN Glucose 109 H (74-106) mg/dL Calcium 9.6 (8.4-10.2) mg/dL Total Bilirubin 0.30 (0.2-1.3) mg/dL AST 55 (17-59) U/L ALT 66 H (0-50) U/L Alkaline Phosphatase 59 (38-126) U/L Serum Total Protein 7.0 (6.3-8.2) g/dL Albumin 4.2 (3.5-5.0) g/dL Radiology Exams: Radiology Procedures Category Date Time Status CHEST 1 VIEW (PORTABLE) Stat Exams 02/08/24 12:26 Completed CHEST 1 VIEW (PORTABLE) Urgent Exams 02/09/24 08:16 Completed CHEST WITHOUT CONTRAST [CT] Routine Exams 02/09/24 20:13 Completed Multi-Disciplinary Progress Notes: Multi-Disciplinary Progress Notes 02/09/24 12:30 (created 02/09/24 14:14) Case Management Note by Priti Miranda S/W PATIENT- HE CONTINUES TO DENY ANY NEW NEEDS AT TIME OF DC. HE PLANS TO DC HOME TO HIS PLF AT TIME OF DC Initialized on 02/09/24 14:14 - END OF NOTE Assessment/Plan (1) Pneumothorax Current Visit: Yes Status: Acute Assessment & Plan: S: no acute issues overnight. no sob. no real cough. o nad nonlabred resps chest tube valve in place scant serous drainage. ct images reviewed with calcified nodules, emphysematous change no discrete causative bleb. a/p: 68yo with second right pneumnothorax on the right this year. discussed with patient higher chance of recurrence now wiht his second event. he would be a candidate for right vats, pleurodesis, possible blebectomy. this would require transfer to higher level of care. did discuss with him if he wants a trule second opinion which is not one of my partners it would require transfer to either [facility]. he is disabled vet. was initially not wanting [place] but then ultimately decided he would like ot go to [facility] if that is possible. -keep chest tube in place. -transfer to [facility]. Code(s): J93.9 - PNEUMOTHORAX, UNSPECIFIED
[2024-02-10 12:50] VITALS: BP 170/86; RESP 22; TEMP 98; O2SAT 97
== END 2024-02-10 12:35 | disposition home or self-care (01) ==
LOC: ED 06:27 → MED SURG 13:32
PROVIDERS: ADMIT Internal Medicine; ATTEND Internal Medicine
DX: J93.9 Pneumothorax, unspecified (principal); R91.8 Other nonspecific abnormal finding of lung field; I10 Essential (primary) hypertension; E78.5 Hyperlipidemia, unspecified; E83.52 Hypercalcemia; N17.9 Acute kidney failure, unspecified; Z96.89 Presence of other specified functional implants; G25.81 Restless legs syndrome; Z79.899 Other long term (current) drug therapy
CPT/HCPCS: 0241U; 32551; 36000; 36415; 71045; 71250; 80053; 82805; 82947; 83605; 83735; 84484; 85025; 87040; 93005; 93925; 94640; 94760; 96365; 96374; 96375; 99285; Q3014; 93268; J0456; J0696; J2270; J2405; J2919; A9270-GY; G0378

== ENCOUNTER 2024-07-06 16:23 | Emergency (ER) | payer OTHER ==
[2024-07-06 16:44] VITALS: TEMP 98
--- NOTE | 2024-07-06 17:05 | XRAY ---
Indication: Cough. Comparison: February 09, 2024 Portable chest demonstrates stable bilateral lower lung calcified granulomas. No focal infiltrate, consolidation, large effusion, or pneumothorax. Heart not enlarged. Bony thorax intact. No new/acute findings.
[2024-07-06 17:44] LABS: Absolute Neutrophil Ct (ANC) 5.37 x10^3/uL (1.78-5.38); BASOPHIL % 0.6 % (0.2-1.2); Basophil (Absolute #) 0.05 x10^3/uL (0.01-0.08); Eosinophil (Absolute #) 0.17 x10^3/uL (0.04-0.54); Hematocrit 41.5 % (40.1-51.0); IMMATURE GRAN # 0.03 x10^3u/L (0.001-0.031); IMMATURE GRAN % 0.3 % (0.001-0.429); Lymphocyte (Absolute #) 1.91 x10^3/uL (1.32-3.57); Mean Cell Volume 96.3 fL (79.0-92.2); Mean Corpuscular Hemoglobin 32.5 pg (25.7-32.2); Mean Corpuscular Hgb Concent. 33.7 g/dL (32.3-36.5); Mean Platelet Volume 10.2 fL (9.4-12.4); Monocyte (Absolute #) 1.16 x10^3/uL (0.30-0.82); Monocytes % 13.3 % (5.3-12.2); Neutrophil % 61.8 % (34.0-67.9); Platelet Count 249 x10^3/uL (163-337); Red Blood Count 4.31 x10^6/uL (4.63-6.08); Red Cell Distribution Width 12.5 % (11.6-14.4); White Blood Count 8.7 x10^3/uL (4.23-9.07)
[2024-07-06 18:00] LABS: ALBUMIN 4.9 g/dL (3.5-5.0); ANION GAP 18.5 MEQ/L (5-15); BILIRUBIN,TOTAL 0.6 mg/dL (0.2-1.3); Calcium 9.5 mg/dL (8.4-10.2); Creatinine 1 3.47 mg/dL (0.66-1.25); EST GLOMERULAR FILTRATION RATE 18.2 ML/MIN; MAGNESIUM 2.1 mg/dL (1.6-2.3); Potassium 4.1 mmol/L (3.5-5.1); Total Protein 7.8 g/dL (6.3-8.2)
--- NOTE | 2024-07-06 18:10 | ERPHSYRPT ---
- History of Present Illness Time Seen by Provider: 07/06/24 16:37 Source: patient Exam Limitations: no limitations Patient Subjective Stated Complaint: C/O cough since Wednesday evening. Cough is productive; yellow/green sputum. Denies SOB. Denies current pain. Triage Nursing Assessment: Patient ambulated back to ER without difficulties. No SOB. Cough during assessment is non-productive. Lungs clear. He is alert and oriented. Physician History: 69 years old male presented in the ER with complaints of cough and congest ion/flulike symptoms for the last 5 days. Patient report it initially started as a cough productive of clear to yellow sputum and gradually having green- colored moderate in amount. Denies any associated shortness of breath. Patient report he feels weak fatigued tired and has been sleeping most of the time for the last 3 to 4 days. Also reports having loose stool couple of days with no abdominal pain nausea or vomiting. No fever or chills reported. Has loss of appetite and has not been eating drinking well for the last few days. Allergies/Adverse Reactions: No Known Drug Allergies Allergy (Verified 07/06/24 16:48) Home Medications: Amlodipine Besylate 5 mg [Norvasc 5 mg] 5 mg PO DAILY 07/11/21 [History] Lisinopril 20 mg [Zestril 20 MG] 20 mg PO DAILY 07/11/21 [History] Multivit with Iron,Minerals [Theratrum Complete 50 Plus] 1 tab PO DAILY 07/11/21 [History] Omeprazole 40 mg PO DAILY 07/11/21 [History] Metoprolol Tartrate 50 mg [Lopressor 50 MG] 100 mg PO DAILY 02/07/24 [History] Hx Tetanus, Diphtheria Vaccination/Date Given: Yes Hx Influenza Vaccination/Date Given: No Hx Pneumococcal Vaccination/Date Given: No Immunizations Up to Date: Yes Travel Risk - International Travel Have you traveled outside of the country in past 3 weeks: No - Emerging Infectious Disease Are you exhibiting symptoms associated with any current EIDs: Yes Symptoms: Cough: New Onset, Headaches/Body Aches/, Other (Please Comment) Comment: ear pain, malaise, eye pressure - Review of Systems Constitutional: Fatigue, Weakness Eyes: No Symptoms Ears, Nose, & Throat: No Symptoms Respiratory: Cough Cardiac: No Symptoms Abdominal/Gastrointestinal: Diarrhea Genitourinary Symptoms: No Symptoms Musculoskeletal: Myalgias Skin: No Symptoms Neurological: No Symptoms Psychological: No Symptoms Hematologic/Lymphatic: No Symptoms Immunological/Allergic: No Symptoms - Past Medical History Pertinent Past Medical History: Yes Neurological History: No Pertinent History ENT History: No Pertinent History Cardiac History: Arrhythmia, Hypertension Respiratory History: Other Endocrine Medical History: No Pertinent History Musculoskeletal History: Osteoarthritis GI Medical History: No Pertinent History History: No Pertinent History Psycho-Social History: No Pertinent History Male Reproductive Disorders: No Pertinent History Other Medical History: COLLAPSE LUNG X 2. - Past Surgical History Past Surgical History: Yes Neuro Surgical History: No Pertinent History Cardiac: No Pertinent History Respiratory: No Pertinent History Gastrointestinal: No Pertinent History Genitourinary: No Pertinent History Musculoskeletal: Orthopedic Surgery Male Surgical History: No Pertinent History Other Surgical History: left wrist surgery in the 70's. Significant Family History: other (colon cancer -mom) - Social History Smoking Status: Former smoker Exposure to second hand smoke: No Drug Use: none - Social Determinants of Health Will the patient participate in the screening: Yes Do you worry about a steady place to live?: No Do you have any problems with any of the following?: No known problems In the past 12 months,have you had to go without utilities?: No Transportation Issues: No Has anyone in your support network made you feel unsafe?: No Have you or anyone in your house had to go w/o enough food: No - Nursing Vital Signs Nursing Vital Signs: Initial Vital Signs Respiratory Rate 16 07/06/24 16:30 O2 Sat by Pulse Oximetry 94 L 07/06/24 16:30 Pain Scale Pain Intensity 0 - Physical Exam General Appearance: no apparent distress, alert Eye Exam: PERRL/EOMI Ears, Nose, Throat Exam: normal ENT inspection Neck Exam: normal inspection, non-tender, supple, full range of motion Respiratory Exam: normal breath sounds, lungs clear Cardiovascular Exam: regular rate/rhythm, normal heart sounds Gastrointestinal/Abdomen Exam: soft, normal bowel sounds, No tenderness Back Exam: normal inspection Extremity Exam: normal inspection, normal range of motion Neurologic Exam: alert, oriented x 3, cooperative, brush finisher II-XII nml as tested Skin Exam: normal color SpO2 Interpretation: normal SpO2: 94 O2 Delivery: Room Air Ordered Tests: Active Orders 24 hr Category Date Time Status IV Insertion STAT Care 04/10/25 17:07 Active ABDOMEN AND PELVIS W/0 CONTRAS [CT] Stat Exams 07/06/24 18:39 Taken CHEST 1 VIEW (PORTABLE) Stat Exams 07/06/24 16:43 Completed BMP Stat Lab 07/06/24 21:20 Completed CBC W DIFF Stat Lab 07/06/24 17:30 Completed CMP Stat Lab 07/06/24 17:30 Completed LIPASE Stat Lab 07/06/24 17:30 Completed Lactic Acid Stat Lab 07/06/24 17:35 Completed MAGNESIUM Stat Lab 07/06/24 17:30 Completed PROCALCITONIN Stat Lab 07/06/24 17:30 Completed UA W/RFX UR CULTURE Stat Lab 07/06/24 20:30 Completed Transfer Order Routine Transfer 07/06/24 Ordered Medication Summary Generic Name Dose Route Start Last Admin Trade Name Freq PRN Reason Stop Dose Admin Sodium Chloride 1,000 mls @ 125 mls/hr 07/06/24 18:45 07/06/24 21:47 Sodium Chloride 0.9% 1000 Ml IV 08/05/24 18:44 Infused .Q8H TRE Infusion Sodium Chloride 1,000 mls @ 100 mls/hr 07/06/24 23:45 07/06/24 23:56 Sodium Chloride 0.9% 1000 Ml IV 08/05/24 23:44 100 mls/hr .Q10H TRE Administration Discontinued Medications Generic Name Dose Route Start Last Admin Trade Name Freq PRN Reason Stop Dose Admin Sodium Chloride 1,000 mls @ 999 mls/hr 07/06/24 17:07 07/06/24 19:39 Sodium Chloride 0.9% 1000 Ml IV 07/06/24 18:07 Infused .Q1H1M STA Infusion Sodium Chloride Confirm 07/06/24 18:18 Sodium Chloride 0.9% 1000 Ml Administered 07/06/24 18:19 Dose 1,000 mls @ ud .ROUTE .STK-MED ONE Lab/Rad Data: Laboratory Result Diagrams 07/06/24 17:30 07/06/24 21:20 Laboratory Results 07/06/24 07/06/24 07/06/24 Range/Units 21:20 20:30 17:35 WBC (4.23-9.07) x10^3/uL RBC (4.63-6.08) x10^6/uL Hgb (13.7-17.5) g/dL Hct (40.1-51.0) % MCV (79.0-92.2) fL MCH (25.7-32.2) pg MCHC (32.3-36.5) g/dL RDW (11.6-14.4) % Plt Count (163-337) x10^3/uL MPV (9.4-12.4) fL Gran % (34.0-67.9) % Immature Gran % (Auto) (0.001-0.429) % Nucleat RBC Rel Count (0.00-0.2) % Eos # (Auto) (0.04-0.54) x10^3/uL Immature Gran # (Auto) (0.001-0.031) x10^3u/L Absolute Lymphs (auto) (1.32-3.57) x10^3/uL Absolute Monos (auto) (0.30-0.82) x10^3/uL Absolute Nucleated RBC (0.00-0.012) x10^3u/L Lymphocytes % (21.8-53.1) % Monocytes % (5.3-12.2) % Eosinophils % (0.8-7.0) % Basophils % (0.2-1.2) % Absolute Granulocytes (1.78-5.38) x10^3/uL Basophils # (0.01-0.08) x10^3/uL Sodium 142 (135-145) mmol/L Potassium 3.9 (3.5-5.1) mmol/L Chloride 106 (98-107) mmol/L Carbon Dioxide 22 (22-30) mmol/L Anion Gap 17.4 H (5-15) MEQ/L BUN 37 H (9-20) mg/dL Creatinine 2.68 H (0.66-1.25) mg/dL Estimated GFR 24.8 ML/MIN Glucose 92 (74-106) mg/dL Lactic Acid 1.1 (0.4-2.0) Calcium 8.7 (8.4-10.2) mg/dL Magnesium (1.6-2.3) mg/dL Total Bilirubin (0.2-1.3) mg/dL AST (17-59) U/L ALT (0-50) U/L Alkaline Phosphatase (38-126) U/L Serum Total Protein (6.3-8.2) g/dL Albumin (3.5-5.0) g/dL Lipase (23-300) U/L Procalcitonin (0.030-0.080) ng/mL Urine Color Yellow (Yellow) Urine Appearance Clear (Clear) Urine pH 5.0 (4.6-8.0) Ur Specific [place] 1.015 (1.005-1.030) Urine Protein 30 (Negative) Urine Glucose (UA) Negative (Negative) mg/dL Urine Ketones 15 A (Negative) Urine Blood Negative (Negative) Urine Nitrite Negative (Negative) Urine Bilirubin Negative (Negative) Urine Urobilinogen 0.2 (0.2) mg/dL Ur Leukocyte Esterase Negative (Negative) U Hyaline Cast (Auto) 6-10 A (0-2) /LPF Urine Microscopic RBC 0-2 (0-5) /HPF Urine Microscopic WBC 0-2 (0-5) /HPF Ur Epithelial Cells None Seen (None Seen) /HPF Urine Bacteria None Seen (None Seen) /HPF Urine Culture Reflexed NO (NO) Influenza Type A Ag (NEGATIVE) Influenza Type B Ag (NEGATIVE) RSV (PCR) (NEGATIVE) SARS-CoV-2 (PCR) (NEGATIVE) 07/06/24 07/06/24 07/06/24 Range/Units 17:30 17:30 17:30 WBC 8.7 (4.23-9.07) x10^3/uL RBC 4.31 L (4.63-6.08) x10^6/uL Hgb 14.0 (13.7-17.5) g/dL Hct 41.5 (40.1-51.0) % MCV 96.3 H (79.0-92.2) fL MCH 32.5 H (25.7-32.2) pg MCHC 33.7 (32.3-36.5) g/dL RDW 12.5 (11.6-14.4) % Plt Count 249 (163-337) x10^3/uL MPV 10.2 (9.4-12.4) fL Gran % 61.8 (34.0-67.9) % Immature Gran % (Auto) 0.3 (0.001-0.429) % Nucleat RBC Rel Count 0.0 (0.00-0.2) % Eos # (Auto) 0.17 (0.04-0.54) x10^3/uL Immature Gran # (Auto) 0.03 (0.001-0.031) x10^3u/L Absolute Lymphs (auto) 1.91 (1.32-3.57) x10^3/uL Absolute Monos (auto) 1.16 H (0.30-0.82) x10^3/uL Absolute Nucleated RBC 0.00 (0.00-0.012) x10^3u/L Lymphocytes % 22.0 (21.8-53.1) % Monocytes % 13.3 H (5.3-12.2) % Eosinophils % 2.0 (0.8-7.0) % Basophils % 0.6 (0.2-1.2) % Absolute Granulocytes 5.37 (1.78-5.38) x10^3/uL Basophils # 0.05 (0.01-0.08) x10^3/uL Sodium 142 (135-145) mmol/L Potassium 4.1 (3.5-5.1) mmol/L Chloride 103 (98-107) mmol/L Carbon Dioxide 25 (22-30) mmol/L Anion Gap 18.5 H (5-15) MEQ/L BUN 39 H (9-20) mg/dL Creatinine 3.47 H (0.66-1.25) mg/dL Estimated GFR 18.2 ML/MIN Glucose 109 H (74-106) mg/dL Lactic Acid (0.4-2.0) Calcium 9.5 (8.4-10.2) mg/dL Magnesium 2.1 (1.6-2.3) mg/dL Total Bilirubin 0.60 (0.2-1.3) mg/dL AST 38 (17-59) U/L ALT 30 (0-50) U/L Alkaline Phosphatase 67 (38-126) U/L Serum Total Protein 7.8 (6.3-8.2) g/dL Albumin 4.9 (3.5-5.0) g/dL Lipase 356 H (23-300) U/L Procalcitonin 0.097 H (0.030-0.080) ng/mL Urine Color (Yellow) Urine Appearance (Clear) Urine pH (4.6-8.0) Ur Specific [place] (1.005-1.030) Urine Protein (Negative) Urine Glucose (UA) (Negative) mg/dL Urine Ketones (Negative) Urine Blood (Negative) Urine Nitrite (Negative) Urine Bilirubin (Negative) Urine Urobilinogen (0.2) mg/dL Ur Leukocyte Esterase (Negative) U Hyaline Cast (Auto) (0-2) /LPF Urine Microscopic RBC (0-5) /HPF Urine Microscopic WBC (0-5) /HPF Ur Epithelial Cells (None Seen) /HPF Urine Bacteria (None Seen) /HPF Urine Culture Reflexed (NO) Influenza Type A Ag (NEGATIVE) Influenza Type B Ag (NEGATIVE) RSV (PCR) (NEGATIVE) SARS-CoV-2 (PCR) (NEGATIVE) 07/06/24 Range/Units 17:20 WBC (4.23-9.07) x10^3/uL RBC (4.63-6.08) x10^6/uL Hgb (13.7-17.5) g/dL Hct (40.1-51.0) % MCV (79.0-92.2) fL MCH (25.7-32.2) pg MCHC (32.3-36.5) g/dL RDW (11.6-14.4) % Plt Count (163-337) x10^3/uL MPV (9.4-12.4) fL Gran % (34.0-67.9) % Immature Gran % (Auto) (0.001-0.429) % Nucleat RBC Rel Count (0.00-0.2) % Eos # (Auto) (0.04-0.54) x10^3/uL Immature Gran # (Auto) (0.001-0.031) x10^3u/L Absolute Lymphs (auto) (1.32-3.57) x10^3/uL Absolute Monos (auto) (0.30-0.82) x10^3/uL Absolute Nucleated RBC (0.00-0.012) x10^3u/L Lymphocytes % (21.8-53.1) % Monocytes % (5.3-12.2) % Eosinophils % (0.8-7.0) % Basophils % (0.2-1.2) % Absolute Granulocytes (1.78-5.38) x10^3/uL Basophils # (0.01-0.08) x10^3/uL Sodium (135-145) mmol/L Potassium (3.5-5.1) mmol/L Chloride (98-107) mmol/L Carbon Dioxide (22-30) mmol/L Anion Gap (5-15) MEQ/L BUN (9-20) mg/dL Creatinine (0.66-1.25) mg/dL Estimated GFR ML/MIN Glucose (74-106) mg/dL Lactic Acid (0.4-2.0) Calcium (8.4-10.2) mg/dL Magnesium (1.6-2.3) mg/dL Total Bilirubin (0.2-1.3) mg/dL AST (17-59) U/L ALT (0-50) U/L Alkaline Phosphatase (38-126) U/L Serum Total Protein (6.3-8.2) g/dL Albumin (3.5-5.0) g/dL Lipase (23-300) U/L Procalcitonin (0.030-0.080) ng/mL Urine Color (Yellow) Urine Appearance (Clear) Urine pH (4.6-8.0) Ur Specific [place] (1.005-1.030) Urine Protein (Negative) Urine Glucose (UA) (Negative) mg/dL Urine Ketones (Negative) Urine Blood (Negative) Urine Nitrite (Negative) Urine Bilirubin (Negative) Urine Urobilinogen (0.2) mg/dL Ur Leukocyte Esterase (Negative) U Hyaline Cast (Auto) (0-2) /LPF Urine Microscopic RBC (0-5) /HPF Urine Microscopic WBC (0-5) /HPF Ur Epithelial Cells (None Seen) /HPF Urine Bacteria (None Seen) /HPF Urine Culture Reflexed (NO) Influenza Type A Ag NEGATIVE (NEGATIVE) Influenza Type B Ag NEGATIVE (NEGATIVE) RSV (PCR) NEGATIVE (NEGATIVE) SARS-CoV-2 (PCR) NEGATIVE (NEGATIVE) - Progress Progress: improved, re-examined Air Movement: good Progress Note: 07/06/24 23:30 69 years old is evaluated in the ER for flulike symptoms with cough congestion, body aches and decreased oral intake. Patient was also feeling lightheaded with ambulation. Patient blood pressure was in low 100s on presentation, he is given fluid bolus. On reevaluation he is feeling much better. Workup showed normal white count, chemistries with acute renal failure with a baseline creatinine of 0.9 and today is 3.4, I have given him almost 2 boluses of fluids and recheck and it is improved to 2.68. Chest x-ray is negative for any acute cardiopulmonary findings reviewed by me followed by official read. After obtain CT abdomen pelvis without contrast which is negative for any acute intra-abdominal pelvic findings per preliminary report, official final reading is pending Patient has no UTI. Has negative COVID and flu. Patient later on told me that he has been taking hydrochlorothiazide 4 times a day for the last few weeks which is probably the reason for his volume contraction and getting dizzy and lightheaded with standing. Discussed with , reviewed history, workup, agreed with admission but patient was found out to be a [facility] patient and I have discussed initially with [facility] lead former Dr. Lieberman who does not think patient needs to be in ICU and then I have discussed with hospitalist Dr. Sharma, reviewed history, workup and agreed with transfer. Shared the results of workup with patient and plan of transfer which she understands and agrees. Complexity of problems addressed: High Complexity of data reviewed/analyzed: Extensive Risk of complication with associated condition: High risk Blood Culture(s) Obtained: No Antibiotics given: No Discussed with : Sravanthi, Other (Dr. Sharma hospitalist [facility], Dr. Lieberman lead former [facility]) Counseled pt/family regarding: lab results, diagnosis, need for follow-up, rad results Medical Desision Making - Discussion of managment Care discussed with:: hospitalist Reviewed:: Test results Agreed on:: Treatment plan Will see patient: in hospital - Diagnostic Testing Diagnostic test were ordered, analyzed, and reviewed by me: Yes Radiological Interpretation: Interpreted by me, Reviewed by me, Teleradiologist Report - Risk of complications The pt has a mod risk of morbidity or mortality based on: Need for prescription drug management The pt has a high risk of morbidity or mortality based on: Drug therapy requiring intensive monitoring for toxicity, Decision regarding hospitilization or escalation of hosp level of care - Departure Departure Disposition: Transfer Clinical Impression: Acute renal failure (ARF), Orthostatic lightheadedness, Viral syndrome Condition: Stable Critical Care Time: No Referrals: DENIS RENNER DEBURRING MACHINE OPERATOR [Primary Care Provider] - Follow up/PCP as directed
[2024-07-06] MEDS ORDERED: Sodium Chloride 0.9% 1000 ML 1,000 ML ONE ×3 (18:18→23:54)
[2024-07-06] MEDS: Sodium Chloride 0.9% 1000 ML 1,000 ML IV STA (18:19)
[2024-07-06 18:21] LABS: INFLUENZA A NEGATIVE (NEGATIVE); INFLUENZA B NEGATIVE (NEGATIVE); RESPIRATORY SYNCTIAL VIRUS NEGATIVE (NEGATIVE); SARS-CoV-2 Xpert Express NEGATIVE (NEGATIVE)
[2024-07-06] MEDS: Sodium Chloride 0.9% 1000 ML 1,000 ML IV SCH ×2 (19:42→23:56)
[2024-07-06 20:43] LABS: Appearance Clear (Clear); Bacteria None Seen /HPF (None Seen); Bilirubin Negative (Negative); Blood Negative (Negative); Epithelial Cells None Seen /HPF (None Seen); Glucose, Urine Negative (Negative); Ketones 15 (Negative); Leukocyte Esterase Negative (Negative); Nitrite Negative (Negative); Protein,Urine Dip 30 (Negative); RBC 0-2 /HPF (0-5); Specific Gravity 1.015 (1.005-1.030); Urobilinogen 0.2 mg/dL (0.2); WBC 0-2 /HPF (0-5)
[2024-07-06 21:48] LABS: ANION GAP 17.4 MEQ/L (5-15); Calcium 8.7 mg/dL (8.4-10.2); Creatinine 1 2.68 mg/dL (0.66-1.25); EST GLOMERULAR FILTRATION RATE 24.8 ML/MIN; Potassium 3.9 mmol/L (3.5-5.1)
[2024-07-07] MEDS ORDERED: NORCO 5/325 MG ONE (01:17)
[2024-07-07] MEDS: NORCO 5/325 MG PO ONE (01:18)
[2024-07-07 03:47] VITALS: BP 131/78; PULSE 60; RESP 19; O2SAT 96
--- NOTE | 2024-07-07 08:47 | XRAY ---
Indication: Flank pain. Renal failure. Multiple contiguous axial images obtained through the abdomen and pelvis without contrast. Comparison: August 15, 2023. Lung bases again demonstrate bibasilar calcified granulomas. No infiltrate, effusion, or pneumothorax. Heart not enlarged. Noncontrasted stomach and bowel loops appear nonobstructed with normal appendix. Again minimal sigmoid diverticulosis without diverticulitis and a few small right renal cysts. No free fluid/air. Remaining liver, gallbladder, pancreas, spleen, adrenal glands, kidneys, ureters, and bladder are unremarkable for noncontrast exam. There remains mild scattered aortoiliac calcifications without AAA. Osseous structures intact again with osteopenia and mild lumbosacral junction degenerative disc disease. Grossly stable large right inguinal hernia again with herniated small bowel loops without obstruction/incarceration. Impression: Again chronic findings including right renal cysts, sigmoid diverticulosis, large noncomplicated right inguinal hernia, arteriosclerotic disease, lumbosacral junction degenerative disc disease, and old granulomatous disease. No new/acute findings on this noncontrast exam.
== END 2024-07-07 03:43 | disposition short-term general hospital (02) ==
LOC: ED 16:23
DX: N17.9 Acute kidney failure, unspecified (principal); R42 Dizziness and giddiness; B34.9 Viral infection, unspecified; R05.1 Acute cough; R53.83 Other fatigue; I10 Essential (primary) hypertension; Z79.899 Other long term (current) drug therapy
CPT/HCPCS: 0241U; 36415; 71045; 74176; 80048; 80053; 81001; 83605; 83690; 83735; 84145; 85025; 96360; 96361; 99285; A9270-GY

== ENCOUNTER 2024-07-18 11:01 | Observation (INO) | payer OTHER ==
[2024-07-18 11:54] LABS: Absolute Neutrophil Ct (ANC) 5.44 x10^3/uL (1.78-5.38); BASOPHIL % 0.6 % (0.2-1.2); Basophil (Absolute #) 0.06 x10^3/uL (0.01-0.08); Eosinophil % 2.5 % (0.8-7.0); Eosinophil (Absolute #) 0.24 x10^3/uL (0.04-0.54); Hematocrit 37.1 % (40.1-51.0); Hemoglobin 12.5 g/dL (13.7-17.5); IMMATURE GRAN # 0.05 x10^3u/L (0.001-0.031); IMMATURE GRAN % 0.5 % (0.001-0.429); Lymphocytes % 23.3 % (21.8-53.1); Mean Cell Volume 96.1 fL (79.0-92.2); Mean Corpuscular Hemoglobin 32.4 pg (25.7-32.2); Mean Corpuscular Hgb Concent. 33.7 g/dL (32.3-36.5); Mean Platelet Volume 9.7 fL (9.4-12.4); Monocyte (Absolute #) 1.45 x10^3/uL (0.30-0.82); Monocytes % 15.4 % (5.3-12.2); Neutrophil % 57.7 % (34.0-67.9); Platelet Count 270 x10^3/uL (163-337); Red Blood Count 3.86 x10^6/uL (4.63-6.08); Red Cell Distribution Width 12.8 % (11.6-14.4); White Blood Count 9.4 x10^3/uL (4.23-9.07)
--- NOTE | 2024-07-18 11:57 | XRAY ---
Indication: Pain following fall injury. Comparison: July 06, 2024 Portable apical lordotic chest remains hyperinflated and clear again with incidental bilateral calcified granulomas. Heart not enlarged. Bony thorax intact. No new/acute findings.
--- NOTE | 2024-07-18 11:57 | XRAY ---
Indication: Pain following falling injury 4 days ago. Comparison: None 3 view right shoulder demonstrates moderate AC degenerative arthropathy and right lung calcified granulomas. No acute bony, articular, or soft tissue abnormalities.
--- NOTE | 2024-07-18 12:16 | ERPHSYRPT ---
- History of Present Illness Time Seen by Provider: 07/18/24 11:20 Source: patient Exam Limitations: no limitations Patient Subjective Stated Complaint: C/O right shoulder and right rib pain following a fall at home on Wednesday Triage Nursing Assessment: Patient ambulated back to ER. He is alert and oriented. SOB noted with exertion. Fading, yellow bruising noted to reported area of pain in right shoulder. Physician History: 69-year-old male presents to our ED for evaluation of right-sided rib pain when he coughs and right sided shoulder pain with movement. Patient states he had a coughing fit 4 days ago on Wednesday. Patient states he passed out at that time. He has been well since. However his right shoulder has been hurting continually. No associated chest pain or shortness of breath. No nausea vomiting or diaphoresis. No numbness tingling or weakness. No neck pain. Cervical spine cleared clinically. No headache. No dizziness or lightheadedness. Patient otherwise feels well. He voices no other complaints or concerns at this time. Patient declined pain medication. Portions of this note were created with voice recognition technology. There may be grammatical, spelling, punctuation or sound alike errors Timing/Duration: day(s) (4 days ago) Severity: moderate Modifying Factors: Improves With: movement Associated Symptoms: denies symptoms Allergies/Adverse Reactions: No Known Drug Allergies Allergy (Verified 07/18/24 11:15) Home Medications: Lisinopril 20 mg [Zestril 20 MG] 20 mg PO DAILY 07/11/21 [History] Multivit with Iron,Minerals [Theratrum Complete 50 Plus] 1 tab PO DAILY 07/11/21 [History] Omeprazole 40 mg PO DAILY 07/11/21 [History] Metoprolol Succinate 100 mg [Toprol Xl 100 MG] 100 mg PO DAILY 07/18/24 [History] Hx Tetanus, Diphtheria Vaccination/Date Given: Yes Hx Influenza Vaccination/Date Given: No Hx Pneumococcal Vaccination/Date Given: No Immunizations Up to Date: Yes Travel Risk - International Travel Have you traveled outside of the country in past 3 weeks: No - Emerging Infectious Disease Are you exhibiting symptoms associated with any current EIDs: Yes Symptoms: Cough: New Onset Comment: ear pain, malaise, eye pressure - Review of Systems Constitutional: No Symptoms, No Fever, No Chills Eyes: No Symptoms Ears, Nose, & Throat: No Symptoms Respiratory: No Symptoms, No Cough, No Dyspnea Cardiac: No Symptoms, No Chest Pain, No Edema, No Syncope Abdominal/Gastrointestinal: No Symptoms, No Abdominal Pain, No Nausea, No Vomiting, No Diarrhea Genitourinary Symptoms: No Symptoms, No Dysuria Musculoskeletal: No Symptoms, No Back Pain, No Neck Pain Skin: No Symptoms, No Rash Neurological: No Symptoms, No Dizziness, No Focal Weakness, No Sensory Changes Psychological: No Symptoms Endocrine: No Symptoms Hematologic/Lymphatic: No Symptoms Immunological/Allergic: No Symptoms All Other Systems: Reviewed and Negative - Past Medical History Pertinent Past Medical History: Yes Neurological History: No Pertinent History ENT History: No Pertinent History Cardiac History: Arrhythmia, Hypertension Respiratory History: Other Endocrine Medical History: No Pertinent History Musculoskeletal History: Osteoarthritis GI Medical History: No Pertinent History History: No Pertinent History Psycho-Social History: No Pertinent History Male Reproductive Disorders: No Pertinent History Other Medical History: COLLAPSE LUNG X 2, Acute Renal Failure in June of 2024 - Past Surgical History Past Surgical History: Yes Neuro Surgical History: No Pertinent History Cardiac: No Pertinent History Respiratory: No Pertinent History Gastrointestinal: No Pertinent History Genitourinary: No Pertinent History Musculoskeletal: Orthopedic Surgery Male Surgical History: No Pertinent History Other Surgical History: left wrist surgery in the 70's. Significant Family History: other (colon cancer -mom) - Social History Smoking Status: Former smoker Exposure to second hand smoke: No Drug Use: none - Social Determinants of Health Will the patient participate in the screening: Yes Do you worry about a steady place to live?: No Do you have any problems with any of the following?: No known problems In the past 12 months,have you had to go without utilities?: No Transportation Issues: No Has anyone in your support network made you feel unsafe?: No Have you or anyone in your house had to go w/o enough food: No - Nursing Vital Signs Nursing Vital Signs: Initial Vital Signs Temperature 97.4 F 07/18/24 11:15 Pulse Rate 81 07/18/24 11:15 Respiratory Rate 19 07/18/24 11:15 Blood Pressure 123/74 07/18/24 11:15 O2 Sat by Pulse Oximetry 97 07/18/24 11:15 Pain Scale Pain Intensity 10 - Physical Exam General Appearance: no apparent distress, alert Eye Exam: PERRL/EOMI, eyes nml inspection Ears, Nose, Throat Exam: normal ENT inspection, moist mucous membranes Neck Exam: normal inspection, full range of motion Respiratory Exam: normal breath sounds, lungs clear, No respiratory distress Cardiovascular Exam: regular rate/rhythm, normal heart sounds, normal peripheral pulses, other (No rib pain or tenderness) Gastrointestinal/Abdomen Exam: soft, normal bowel sounds, No tenderness, No mass Back Exam: normal inspection, normal range of motion, No CVA tenderness, No vertebral tenderness Extremity Exam: normal inspection, normal range of motion, pelvis stable, other (Right shoulder has residual bruising. Range of motion limited secondary to pain. The involved right upper extremity is neurovascular tact distally compartments are soft cap refill less than 2 seconds.) Neurologic Exam: alert, oriented x 3, cooperative, normal mood/affect, sensation nml, No motor deficits Skin Exam: normal color, warm, dry, No rash Lymphatic Exam: No adenopathy SpO2 Interpretation: normal SpO2: 97 O2 Delivery: Room Air - Course Nursing assessment & vital signs reviewed: Yes - Radiology Exams Shoulder X-ray Interpretation: Teleradiologist Report (No acute findings) Chest X-ray Interpretation: Teleradiologist Report (No acute findings) Ordered Tests: Active Orders 24 hr Category Date Time Status Bed Manager STAT Care 07/18/24 11:34 Active Pulse Oximetry (ED) STAT Care 07/18/24 11:34 Active CHEST 1 VIEW (PORTABLE) Stat Exams 07/18/24 11:28 Completed SHOULDER Stat Exams 07/18/24 11:28 Completed CBC W DIFF Stat Lab 07/18/24 11:52 Completed CMP Stat Lab 07/18/24 11:52 Completed NT PRO BNPII Stat Lab 07/18/24 11:52 Completed TROPONIN Q4H Lab 07/18/24 11:52 Completed TROPONIN Q4H Lab 07/18/24 15:45 Ordered TROPONIN Q4H Lab 07/18/24 19:45 Ordered Transfer Order Routine Transfer 07/18/24 Ordered Lab/Rad Data: Laboratory Result Diagrams 07/18/24 11:52 07/18/24 11:52 Laboratory Results 07/18/24 07/18/24 07/18/24 Range/Units 11:52 11:52 11:52 WBC 9.4 H (4.23-9.07) x10^3/uL RBC 3.86 L (4.63-6.08) x10^6/uL Hgb 12.5 L (13.7-17.5) g/dL Hct 37.1 L (40.1-51.0) % MCV 96.1 H (79.0-92.2) fL MCH 32.4 H (25.7-32.2) pg MCHC 33.7 (32.3-36.5) g/dL RDW 12.8 (11.6-14.4) % Plt Count 270 (163-337) x10^3/uL MPV 9.7 (9.4-12.4) fL Gran % 57.7 (34.0-67.9) % Immature Gran % (Auto) 0.5 H (0.001-0.429) % Nucleat RBC Rel Count 0.0 (0.00-0.2) % Eos # (Auto) 0.24 (0.04-0.54) x10^3/uL Immature Gran # (Auto) 0.05 H (0.001-0.031) x10^3u/L Absolute Lymphs (auto) 2.20 (1.32-3.57) x10^3/uL Absolute Monos (auto) 1.45 H (0.30-0.82) x10^3/uL Absolute Nucleated RBC 0.00 (0.00-0.012) x10^3u/L Lymphocytes % 23.3 (21.8-53.1) % Monocytes % 15.4 H (5.3-12.2) % Eosinophils % 2.5 (0.8-7.0) % Basophils % 0.6 (0.2-1.2) % Absolute Granulocytes 5.44 H (1.78-5.38) x10^3/uL Basophils # 0.06 (0.01-0.08) x10^3/uL Sodium 136 (135-145) mmol/L Potassium 3.6 (3.5-5.1) mmol/L Chloride 96 L (98-107) mmol/L Carbon Dioxide 28 (22-30) mmol/L Anion Gap 16.2 H (5-15) MEQ/L BUN 28 H (9-20) mg/dL Creatinine 1.66 H (0.66-1.25) mg/dL Estimated GFR 44.1 ML/MIN Glucose 116 H (74-106) mg/dL Calcium 9.8 (8.4-10.2) mg/dL Total Bilirubin 0.50 (0.2-1.3) mg/dL AST 38 (17-59) U/L ALT 28 (0-50) U/L Alkaline Phosphatase 78 (38-126) U/L Troponin I < 0.012 (0.000-0.033) ng/mL NT-Pro-B Natriuret Pep 168 (<300) pg/mL Serum Total Protein 7.5 (6.3-8.2) g/dL Albumin 4.6 (3.5-5.0) g/dL - Progress Progress: improved Progress Note: 69-year-old male presents to our emergency department for evaluation of right shoulder pain. Patient advises that he had a coughing fit followed by syncopal episode 4 days ago. Patient had some rib discomfort originally however that had improved. Patient's right shoulder pain did not. Patient presented to our ED and also stated that he was recently discharged from [facility] with acute renal injury. Patient advised that he has been experiencing some degree of diarrhea as well. Labs obtained. Patient's creatinine 1.66. We contacted the [facility]. Patient's creatinine at the [facility] was 1.3. We contacted the [facility] for [facility] on disposition[facility] and possible rehydration. However they stated that they could not admit patient to their hospital due to bed availability. They advised that we keep patient in our hospital for further evaluation and treatment. Case discussed with patient. Patient agrees to admission to [facility] for further evaluation and treatment. Case discussed with hospitalist who accepts admission to observation at 1:39 PM Chest x-ray shows no acute pathology. Portions of this note were created with voice recognition technology. There may be grammatical, spelling, punctuation or sound alike errors Complexity of problem addressed is moderate acute complicated. No critical care time. Complexity of data reviewed and analyzed is extensive. Test ordered test reviewed results analyzed and correlated clinically with history and physical exam. Management discussed with hospitalist Dr. Brock. [facility] the [facility]. Risk of complication and or risk of morbidity/mortality of patient management is high. Patient requires hospitalization for further evaluation and treatment. Vital stable. Time spent admit patient is approximately 15 minutes. Plan of care established for shared decision making. No social determinants felt present to impede follow-up. Portions of this note were created with voice recognition technology. There may be grammatical, spelling, punctuation or sound alike errors 07/18/24 13:50 Counseled pt/family regarding: lab results, diagnosis, rad results - Departure Departure Disposition: Observation Clinical Impression: Fall, Shoulder sprain, Acute renal injury, Diarrhea Condition: Stable Critical Care Time: No Referrals: DENIS RENNER, [facility] [Primary Care Provider, UNKNOWN] - Follow up/PCP as directed
[2024-07-18 12:17] LABS: ALBUMIN 4.6 g/dL (3.5-5.0); ANION GAP 16.2 MEQ/L (5-15); BILIRUBIN,TOTAL 0.5 mg/dL (0.2-1.3); Calcium 9.8 mg/dL (8.4-10.2); Creatinine 1 1.66 mg/dL (0.66-1.25); EST GLOMERULAR FILTRATION RATE 44.1 ML/MIN; Potassium 3.6 mmol/L (3.5-5.1); Total Protein 7.5 g/dL (6.3-8.2)
[2024-07-18] MEDS: Sodium Chloride 0.9% 1000 ML 1,000 ML IV SCH ×2 (14:37→21:19)
[2024-07-18] MEDS ORDERED: Zofran 4 MG/2 ML VIAL IV PRN (16:41)
--- NOTE | 2024-07-18 16:41 | PCM.HP ---
History of Present Illness - Chief Complaint Chief Complaint: Acute renal injury Date: 07/18/24 History of Present Illness: is a 69-year-old male presented to the Emergency Department with right-sided rib pain aggravated by coughing and right shoulder pain associated with movement. He reports a significant coughing episode four days ago, during which he experienced a syncopal event and briefly lost consciousness. Since that episode, he has generally felt well, though his right shoulder pain has persisted. He denies chest pain unrelated to coughing, shortness of breath, nausea, vomiting, diaphoresis, neurological deficits, headache, dizziness, or neck pain. IN ER clinical evaluation cleared the cervical spine, and the patient currently voices no other complaints. Since admission, the patient reports feeling significantly improved. He states that this morning he took two children's Benadryl, which resulted in decreased coughing, sneezing, and reduced chest discomfort. His chest pain is localized to the sternum and is described as 10/10 in intensity with coughing, and 4/10 at rest. He also reports ongoing sinus congestion, right ear fullness described as a sensation of "being in a bubble," and continued production of yellow sputum. He recently completed a five-day course of Amoxicillin. The syncopal event he experienced appears consistent with a vasovagal response, and he has not had any recurrence. He continues to have diarrhea, which began after starting Amoxicillin. Probiotics will be initiated for this, and a stronger antibiotic will be started to address his ongoing symptoms of sinusitis. He notes that Tylenol has been effective in managing his pain, and he found the Benadryl helpful for both cough and sinus symptoms. - Review of Systems Constitutional: No Fever, No Chills Eyes: No Symptoms Ears, Nose, & Throat: No Symptoms Respiratory: Cough, No Short Of Breath Cardiac: Chest Pain (with coughing), No Edema, No Syncope Abdominal/Gastrointestinal: Diarrhea, No Abdominal Pain, No Nausea, No Vomiting Genitourinary Symptoms: No Dysuria Musculoskeletal: Other (sternum pain), No Back Pain, No Neck Pain Skin: No Rash Neurological: No Dizziness, No Focal Weakness, No Sensory Changes Psychological: No Symptoms Endocrine: No Symptoms Hematologic/Lymphatic: No Symptoms Immunological/Allergic: No Symptoms Medications & Allergies Home Medications: Home Medication List Lisinopril 20 mg [Zestril 20 MG] 20 mg PO DAILY 07/11/21 [History Confirmed 07/18/24] Multivit with Iron,Minerals [Theratrum Complete 50 Plus] 1 tab PO DAILY 07/11/21 [History Confirmed 07/18/24] Omeprazole 40 mg PO DAILY 07/11/21 [History Confirmed 07/18/24] Metoprolol Succinate 100 mg [Toprol Xl 100 MG] 100 mg PO DAILY 07/18/24 [History Confirmed 07/18/24] Allergies/Adverse Reactions: Allergies Allergy/AdvReac Type Severity Reaction Status Date / Time No Known Drug Allergies Allergy Verified 07/18/24 11:15 - Past Medical History Past Medical History: Yes Neurological History: No Pertinent History ENT History: No Pertinent History Cardiac History: Arrhythmia, Hypertension Respiratory History: Other Endocrine Medical History: No Pertinent History Musculoskelatal History: Osteoarthritis GI Medical History: No Pertinent History History: No Pertinent History Pyscho-Social History: No Pertinent History Male Reproductive Disorders: No Pertinent History Comment: COLLAPSE LUNG X 2, Acute Renal Failure in June of 2024 - Past Surgical History Past Surgical History: Yes Neuro Surgical History: No Pertinent History Cardiac History: No Pertinent History Respiratory Surgery: No Pertinent History GI Surgical History: No Pertinent History Genitourinary Surgical Hx: No Pertinent History Musculskeletal Surgical Hx: Orthopedic Surgery Male Surgical History: No Pertinent History Other Surgical History: left wrist surgery in the 70's. Significant Family History: other (colon cancer -mom) - Social History Smoking Status: Former smoker How long have you smoked: 40 yrs Exposure to second hand smoke: No Alcohol: None Drug Use: none - Social Determinants of Health Will the patient participate in the screening: Yes Do you worry about a steady place to live?: No Do you have any problems with any of the following?: No known problems In the past 12 months,have you had to go without utilities?: No Have you or anyone in your house had to go without enough: No Transportation Issues: No Has anyone in your support network made you feel unsafe?: No Does the patient want assistance with any of the above?: No - Physical Exam Vital Signs: Vital Signs - 24 hr Temp Pulse Resp BP BP Pulse Ox 07/18/24 14:30 97 07/18/24 14:00 70 18 127/82 96 07/18/24 13:54 97 07/18/24 13:30 134/78 94 L 07/18/24 13:00 70 18 116/83 95 07/18/24 12:30 129/82 92 L 07/18/24 12:00 68 18 122/76 92 L 07/18/24 11:34 97 07/18/24 11:15 97.4 F 81 19 123/74 97 General Appearance: no apparent distress, alert Neurologic Exam: alert, oriented x 3, cooperative, normal mood/affect, nml cerebellar function, nml station & gait, sensation nml, No motor deficits Eye Exam: PERRL/EOMI, eyes nml inspection Ears, Nose, Throat Exam: normal ENT inspection, TMs normal, pharynx normal, moist mucous membranes Neck Exam: normal inspection, non-tender, supple, full range of motion Respiratory Exam: normal breath sounds, lungs clear, No respiratory distress Cardiovascular Exam: regular rate/rhythm, normal heart sounds, normal peripheral pulses Gastrointestinal/Abdomen Exam: soft, normal bowel sounds, No tenderness, No mass Back Exam: normal inspection, normal range of motion, No CVA tenderness, No vertebral tenderness Extremity Exam: normal inspection, normal range of motion, pelvis stable Skin Exam: normal color, warm, dry, No rash Lymphatic Exam: No adenopathy Results - Labs Lab/Micro Results: Lab Results-Last 24 Hours 07/18/24 07/18/24 07/18/24 Range/Units 11:52 11:52 11:52 WBC 9.4 H (4.23-9.07) x10^3/uL RBC 3.86 L (4.63-6.08) x10^6/uL Hgb 12.5 L (13.7-17.5) g/dL Hct 37.1 L (40.1-51.0) % MCV 96.1 H (79.0-92.2) fL MCH 32.4 H (25.7-32.2) pg MCHC 33.7 (32.3-36.5) g/dL RDW 12.8 (11.6-14.4) % Plt Count 270 (163-337) x10^3/uL MPV 9.7 (9.4-12.4) fL Gran % 57.7 (34.0-67.9) % Immature Gran % (Auto) 0.5 H (0.001-0.429) % Nucleat RBC Rel Count 0.0 (0.00-0.2) % Eos # (Auto) 0.24 (0.04-0.54) x10^3/uL Immature Gran # (Auto) 0.05 H (0.001-0.031) x10^3u/L Absolute Lymphs (auto) 2.20 (1.32-3.57) x10^3/uL Absolute Monos (auto) 1.45 H (0.30-0.82) x10^3/uL Absolute Nucleated RBC 0.00 (0.00-0.012) x10^3u/L Lymphocytes % 23.3 (21.8-53.1) % Monocytes % 15.4 H (5.3-12.2) % Eosinophils % 2.5 (0.8-7.0) % Basophils % 0.6 (0.2-1.2) % Absolute Granulocytes 5.44 H (1.78-5.38) x10^3/uL Basophils # 0.06 (0.01-0.08) x10^3/uL Sodium 136 (135-145) mmol/L Potassium 3.6 (3.5-5.1) mmol/L Chloride 96 L (98-107) mmol/L Carbon Dioxide 28 (22-30) mmol/L Anion Gap 16.2 H (5-15) MEQ/L BUN 28 H (9-20) mg/dL Creatinine 1.66 H (0.66-1.25) mg/dL Estimated GFR 44.1 ML/MIN Glucose 116 H (74-106) mg/dL Calcium 9.8 (8.4-10.2) mg/dL Total Bilirubin 0.50 (0.2-1.3) mg/dL AST 38 (17-59) U/L ALT 28 (0-50) U/L Alkaline Phosphatase 78 (38-126) U/L Troponin I < 0.012 (0.000-0.033) ng/mL NT-Pro-B Natriuret Pep 168 (<300) pg/mL Serum Total Protein 7.5 (6.3-8.2) g/dL Albumin 4.6 (3.5-5.0) g/dL 07/18/24 Range/Units 15:45 WBC (4.23-9.07) x10^3/uL RBC (4.63-6.08) x10^6/uL Hgb (13.7-17.5) g/dL Hct (40.1-51.0) % MCV (79.0-92.2) fL MCH (25.7-32.2) pg MCHC (32.3-36.5) g/dL RDW (11.6-14.4) % Plt Count (163-337) x10^3/uL MPV (9.4-12.4) fL Gran % (34.0-67.9) % Immature Gran % (Auto) (0.001-0.429) % Nucleat RBC Rel Count (0.00-0.2) % Eos # (Auto) (0.04-0.54) x10^3/uL Immature Gran # (Auto) (0.001-0.031) x10^3u/L Absolute Lymphs (auto) (1.32-3.57) x10^3/uL Absolute Monos (auto) (0.30-0.82) x10^3/uL Absolute Nucleated RBC (0.00-0.012) x10^3u/L Lymphocytes % (21.8-53.1) % Monocytes % (5.3-12.2) % Eosinophils % (0.8-7.0) % Basophils % (0.2-1.2) % Absolute Granulocytes (1.78-5.38) x10^3/uL Basophils # (0.01-0.08) x10^3/uL Sodium (135-145) mmol/L Potassium (3.5-5.1) mmol/L Chloride (98-107) mmol/L Carbon Dioxide (22-30) mmol/L Anion Gap (5-15) MEQ/L BUN (9-20) mg/dL Creatinine (0.66-1.25) mg/dL Estimated GFR ML/MIN Glucose (74-106) mg/dL Calcium (8.4-10.2) mg/dL Total Bilirubin (0.2-1.3) mg/dL AST (17-59) U/L ALT (0-50) U/L Alkaline Phosphatase (38-126) U/L Troponin I < 0.012 (0.000-0.033) ng/mL NT-Pro-B Natriuret Pep (<300) pg/mL Serum Total Protein (6.3-8.2) g/dL Albumin (3.5-5.0) g/dL - Radiology Impressions Radiology Exams & Impressions: Radiology Procedures Category Date Time Status CHEST 1 VIEW (PORTABLE) Stat Exams 07/18/24 11:28 Completed SHOULDER Stat Exams 07/18/24 11:28 Completed Assessment/Plan (1) Sinusitis Current Visit: Yes Status: Acute Assessment & Plan: - Ceftriaxone IV - Flonase - CBC reviewed - WBC 9.4 - Failed OP amoxicillin Code(s): J32.9 - CHRONIC SINUSITIS, UNSPECIFIED (2) Syncopal episodes Current Visit: Yes Status: Acute Qualifiers: Encounter type: initial encounter Assessment & Plan: - X1 - tele - EKG - Likey 2:2 sinusitis and vasovagial episode - CBC, CMP reviewed Code(s): R55 - SYNCOPE AND COLLAPSE (3) Acute costochondritis Current Visit: Yes Status: Acute Assessment & Plan: - IBP and tylenol for pain - ICE or heat - supportive care - Increased pain with cough pr deep breath. - CXR negative - Tessalon for cough PRN Code(s): M94.0 - CHONDROCOSTAL JUNCTION SYNDROME [TIETZE] (4) JETT (acute kidney injury) Current Visit: Yes Status: Acute Assessment & Plan: - Creat 1.66- BL normal- trend - IVF - Tele - 2:2 Diarrhea - Hold lisinopril Code(s): N17.9 - ACUTE KIDNEY FAILURE, UNSPECIFIED (5) Diarrhea Current Visit: Yes Status: Acute Assessment & Plan: - probiotics - C-diff test - If c-diff negative will order imodium Code(s): R19.7 - DIARRHEA, UNSPECIFIED (6) HLD (hyperlipidemia) Current Visit: No Status: Chronic Assessment & Plan: - Continue statin Code(s): E78.5 - HYPERLIPIDEMIA, UNSPECIFIED (7) HTN (hypertension) Current Visit: No Status: Acute Assessment & Plan: - BP stable - Continue beta cherry, hold lisinopril d/t JETT VTE: Heparin Next of KIN: Petra Brito D/C plan: 1-2 days Code status: Full Code(s): I10 - ESSENTIAL (PRIMARY) HYPERTENSION
[2024-07-18] MEDS ORDERED: MOTRIN 600 MG PO PRN (16:45)
[2024-07-18] MEDS ORDERED: Tessalon Perles 100 MG PO PRN (16:45)
[2024-07-18] MEDS: Acidophilus TABLET PO SCH (17:35)
[2024-07-18] MEDS: BENADRYL 25 MG CAPSULE PO SCH (17:35)
[2024-07-18] MEDS: Flonase NASAL NS SCH (17:35)
[2024-07-18] MEDS: ROCEPHIN 1 GM / 100 ML NaCl 1 GM/100 ML IVPB IV SCH (17:36)
[2024-07-18] MEDS: TYLENOL 325 MG PO PRN (17:47)
[2024-07-18] MEDS: HEPARIN 5000 UNITS/0.5 ML (HIGH RISK MED) SQ SCH (21:19)
[2024-07-19 05:37] LABS: Hematocrit 33.4 % (40.1-51.0); Hemoglobin 11.2 g/dL (13.7-17.5); Mean Cell Volume 96.3 fL (79.0-92.2); Mean Corpuscular Hemoglobin 32.3 pg (25.7-32.2); Mean Corpuscular Hgb Concent. 33.5 g/dL (32.3-36.5); Mean Platelet Volume 10.1 fL (9.4-12.4); Platelet Count 241 x10^3/uL (163-337); Red Blood Count 3.47 x10^6/uL (4.63-6.08); Red Cell Distribution Width 12.8 % (11.6-14.4); White Blood Count 7.6 x10^3/uL (4.23-9.07)
[2024-07-19 06:00] LABS: ANION GAP 13.1 MEQ/L (5-15); BILIRUBIN,TOTAL 0.5 mg/dL (0.2-1.3); Calcium 8.9 mg/dL (8.4-10.2); Creatinine 1 1.13 mg/dL (0.66-1.25); EST GLOMERULAR FILTRATION RATE 69.9 ML/MIN; Potassium 3.6 mmol/L (3.5-5.1); Total Protein 6.6 g/dL (6.3-8.2)
[2024-07-19 08:00] VITALS: RESP 16
[2024-07-19] MEDS: Toprol Xl 100 MG PO SCH (10:25)
[2024-07-19] MEDS: Zestril 20 MG PO SCH (10:25)
[2024-07-19] MEDS: THERAGRAN MULTIVITAMIN PO SCH (10:25)
[2024-07-19] MEDS: Protonix 40MG Tablet PO SCH (10:25)
--- NOTE | 2024-07-19 10:50 | XRAY ---
Indication: Pain following fall 5 days ago. Comparison: Right shoulder exam November 17, 2024 2 view right scapula demonstrates new mildly displaced fracture distal shaft clavicle. Stable osteopenia, acromioclavicular degenerative arthropathy, and right lung calcified granulomas.
--- NOTE | 2024-07-19 12:07 | PCM.DS ---
Discharge Summary Date of Admission: 07/18/24 15:06 Date of Discharge: 07/19/24 Admitting Physician: FUNMI REVELES MD Consults: Consults on Case 07/19/24 11:58 Consult Ortho ROUTINE Primary Care Provider: DENIS RENNER NP Allergies Allergies No Known Drug Allergies Allergy (Verified 07/18/24 11:15) Hospital Summary - Hospital Course Hospital Course: 07/18/24 is a 69-year-old male presented to the Emergency Department with right-sided rib pain aggravated by coughing and right shoulder pain associated with movement. He reports a significant coughing episode four days ago, during which he experienced a syncopal event and briefly lost consciousness. Since that episode, he has generally felt well, though his right shoulder pain has persisted. He denies chest pain unrelated to coughing, shortness of breath, nausea, vomiting, diaphoresis, neurological deficits, headache, dizziness, or neck pain. IN ER clinical evaluation cleared the cervical spine, and the patient currently voices no other complaints. Since admission, the patient reports feeling significantly improved. He states that this morning he took two children's Benadryl, which resulted in decreased coughing, sneezing, and reduced chest discomfort. His chest pain is localized to the sternum and is described as 10/10 in intensity with coughing, and 4/10 at rest. He also reports ongoing sinus congestion, right ear fullness described as a sensation of "being in a bubble," and continued production of yellow sputum. He recently completed a five-day course of Amoxicillin. The syncopal event he experienced appears consistent with a vasovagal response, and he has not had any recurrence. He continues to have diarrhea, which began after starting Amoxicillin. Probiotics will be initiated for this, and a stronger antibiotic will be started to address his ongoing symptoms of sinusitis. He notes that Tylenol has been effective in managing his pain, and he found the Benadryl helpful for both cough and sinus symptoms. 07/19/24 Pt states he feels he has a scapula fx. XR ordered of scupla and does confirm clavicle fx today, Ortho consulted. C-diff pending. Continue probiotics for diarrhea. JETT resolved. Mucinex started for sinus congestion. If ok with ortho will d/c today and f/u OP with Ortho. labs overall improved. He denies CP, SOB, abd. pain, N/V/D. - Vitals & Intake/Output Vital Signs: Vital Signs Temperature 97.9 F 07/19/24 11:58 Pulse Rate 73 07/19/24 11:58 Respiratory Rate 16 07/19/24 11:58 Blood Pressure 132/78 07/19/24 11:58 O2 Sat by Pulse Oximetry 93 L 07/19/24 11:58 Intake & Output: Intake & Output 07/17/24 07/18/24 07/19/24 07/20/24 11:59 11:59 11:59 11:59 Intake Total 3226 Balance 3226 Weight 82.8 kg 83.6 kg - Lab Result Diagrams: 07/19/24 05:28 07/19/24 05:28 Lab Results-Last 24 Hrs: Lab Results-Last 24 Hours 07/18/24 07/18/24 07/18/24 Range/Units 11:52 11:52 15:45 WBC (4.23-9.07) x10^3/uL RBC (4.63-6.08) x10^6/uL Hgb (13.7-17.5) g/dL Hct (40.1-51.0) % MCV (79.0-92.2) fL MCH (25.7-32.2) pg MCHC (32.3-36.5) g/dL RDW (11.6-14.4) % Plt Count (163-337) x10^3/uL MPV (9.4-12.4) fL Sodium 136 (135-145) mmol/L Potassium 3.6 (3.5-5.1) mmol/L Chloride 96 L (98-107) mmol/L Carbon Dioxide 28 (22-30) mmol/L Anion Gap 16.2 H (5-15) MEQ/L BUN 28 H (9-20) mg/dL Creatinine 1.66 H (0.66-1.25) mg/dL Estimated GFR 44.1 ML/MIN Glucose 116 H (74-106) mg/dL Calcium 9.8 (8.4-10.2) mg/dL Total Bilirubin 0.50 (0.2-1.3) mg/dL AST 38 (17-59) U/L ALT 28 (0-50) U/L Alkaline Phosphatase 78 (38-126) U/L Troponin I < 0.012 < 0.012 (0.000-0.033) ng/mL NT-Pro-B Natriuret Pep 168 (<300) pg/mL Serum Total Protein 7.5 (6.3-8.2) g/dL Albumin 4.6 (3.5-5.0) g/dL 07/18/24 07/19/24 07/19/24 Range/Units 19:55 05:28 05:28 WBC 7.6 (4.23-9.07) x10^3/uL RBC 3.47 L (4.63-6.08) x10^6/uL Hgb 11.2 L (13.7-17.5) g/dL Hct 33.4 L (40.1-51.0) % MCV 96.3 H (79.0-92.2) fL MCH 32.3 H (25.7-32.2) pg MCHC 33.5 (32.3-36.5) g/dL RDW 12.8 (11.6-14.4) % Plt Count 241 (163-337) x10^3/uL MPV 10.1 (9.4-12.4) fL Sodium 137 (135-145) mmol/L Potassium 3.6 (3.5-5.1) mmol/L Chloride 100 (98-107) mmol/L Carbon Dioxide 27 (22-30) mmol/L Anion Gap 13.1 (5-15) MEQ/L BUN 22 H (9-20) mg/dL Creatinine 1.13 (0.66-1.25) mg/dL Estimated GFR 69.9 ML/MIN Glucose 97 (74-106) mg/dL Calcium 8.9 (8.4-10.2) mg/dL Total Bilirubin 0.50 (0.2-1.3) mg/dL AST 34 (17-59) U/L ALT 25 (0-50) U/L Alkaline Phosphatase 74 (38-126) U/L Troponin I < 0.012 (0.000-0.033) ng/mL NT-Pro-B Natriuret Pep (<300) pg/mL Serum Total Protein 6.6 (6.3-8.2) g/dL Albumin 4.0 (3.5-5.0) g/dL - Radiology Exams Ordered Rad Exams-Entire Visit: Radiology Procedures Category Date Time Status CHEST 1 VIEW (PORTABLE) Stat Exams 07/18/24 11:28 Completed SCAPULA Routine Exams 07/19/24 09:45 Completed SHOULDER Stat Exams 07/18/24 11:28 Completed Discharge Exam General Appearance: no apparent distress, alert Neurologic Exam: alert, oriented x 3, cooperative, normal mood/affect, nml cerebellar function, sensation nml, No motor deficits Eye Exam: PERRL, EOMI, eyes nml inspection Ears, Nose, Throat Exam: normal ENT inspection, pharynx normal, moist mucous membranes Neck Exam: normal inspection, non-tender, supple, full range of motion Respiratory Exam: normal breath sounds, lungs clear, No respiratory distress Cardiovascular Exam: regular rate/rhythm, normal heart sounds Gastrointestinal/Abdomen Exam: soft, No tenderness, No mass Male Genitalia Exam: deferred Rectal Exam: deferred Back Exam: normal inspection, normal range of motion, No CVA tenderness, No vertebral tenderness Extremity Exam: normal inspection, normal range of motion, tenderness (right scapula) Skin Exam: normal color, warm, dry Final Diagnosis/Problem List - Final Discharge Diagnosis/Problem (1) Sinusitis Current Visit: Yes Status: Acute Code(s): J32.9 - CHRONIC SINUSITIS, UNSPECIFIED (2) Syncopal episodes Current Visit: Yes Status: Acute Code(s): R55 - SYNCOPE AND COLLAPSE (3) Acute costochondritis Current Visit: Yes Status: Acute Code(s): M94.0 - CHONDROCOSTAL JUNCTION SYNDROME [TIETZE] (4) JETT (acute kidney injury) Current Visit: Yes Status: Acute Code(s): N17.9 - ACUTE KIDNEY FAILURE, UNSPECIFIED (5) Diarrhea Current Visit: Yes Status: Acute Code(s): R19.7 - DIARRHEA, UNSPECIFIED (6) HLD (hyperlipidemia) Current Visit: No Status: Chronic Code(s): E78.5 - HYPERLIPIDEMIA, UNSPECIFIED (7) HTN (hypertension) Current Visit: No Status: Acute Assessment & Plan: (1) Sinusitis Current Visit: Yes Status: Acute Assessment & Plan: - Ceftriaxone IV - Flonase - CBC reviewed - WBC 9.4 - Failed OP amoxicillin Code(s): J32.9 - CHRONIC SINUSITIS, UNSPECIFIED (2) Syncopal episodes Current Visit: Yes Status: Acute Qualifiers: Encounter type: initial encounter Assessment & Plan: - X1 - tele - EKG - Likey 2:2 sinusitis and vasovagial episode - CBC, CMP reviewed Code(s): R55 - SYNCOPE AND COLLAPSE (3) Acute costochondritis Current Visit: Yes Status: Acute Assessment & Plan: - IBP and tylenol for pain - ICE or heat - supportive care - Increased pain with cough pr deep breath. - CXR negative - Tessalon for cough PRN Code(s): M94.0 - CHONDROCOSTAL JUNCTION SYNDROME [TIETZE] (4) JETT (acute kidney injury) Current Visit: Yes Status: Acute Assessment & Plan: - Creat 1.66- BL normal- trend - IVF - Tele - 2:2 Diarrhea - Hold lisinopril 07/19 - JETT resolved - CMp reviewed Code(s): N17.9 - ACUTE KIDNEY FAILURE, UNSPECIFIED (5) Diarrhea Current Visit: Yes Status: Acute Assessment & Plan: - probiotics - C-diff test pending - If c-diff negative will order imodium - IVF Code(s): R19.7 - DIARRHEA, UNSPECIFIED (6) HLD (hyperlipidemia) Current Visit: No Status: Chronic Assessment & Plan: - Continue statin Code(s): E78.5 - HYPERLIPIDEMIA, UNSPECIFIED (7) HTN (hypertension) Current Visit: No Status: Acute Assessment & Plan: - BP stable - Continue beta cherry, hold lisinopril d/t JETT 07/17 - Lisinopril resumed Code(s): I10 - ESSENTIAL (PRIMARY) HYPERTENSION (8) Clavicle fracture Current Visit: Yes Status: Acute Assessment & Plan: - As seen on Scapula XR - Right distal shaft clavicle fx - Ortho consult- sling placed, july f/u in 1 week OP. Code(s): S42.009A - FRACTURE OF UNSP PART OF UNSP CLAVICLE, INIT FOR CLOS FX - Discharge Discharge Date: 07/19/24 Disposition: Home, Self-Care Condition: Stable Prescriptions: New cefuroxime axetiL [Cefuroxime] 500 mg PO BID 5 Days #10 tablet Benzonatate 100 mg PO TID PRN 10 Days #30 cap Continue Multivit with Iron,Minerals [Theratrum Complete 50 Plus] 1 tab PO DAILY Metoprolol Succinate 100 mg [Toprol Xl 100 MG] 100 mg PO DAILY No Action Cholecalciferol (Vitamin D3) [Vitamin D] 400 units PO DAILY Omeprazole 20 mg PO DAILY Chlorthalidone 25 mg PO DAILY HydrALAzine HCL 25 MG TAB [Apresoline 25 MG TABLET] 12.5 mg PO QID lisinopriL [Zestril] 40 mg PO DAILY Cyanocobalamin 500 Mcg [Vitamin B-12 500 MCG] 500 mcg PO DAILY Additional Instructions: You can buy Flonase, Mucinex, Benadryl, and Probiotics over the counter. You can take tylenol and ibuprofen for pain alternating. Please follow the directions on labels and do not exceed daily recommended dosing. Follow up with: DENIS RENNER NP [Primary Care Provider, UNKNOWN]
[2024-07-19] MEDS: VITAMIN D PO SCH (13:26)
[2024-07-19] MEDS: Apresoline 25 MG TABLET PO SCH (13:27)
[2024-07-19] MEDS: Mucinex 600MG ER Tabs PO SCH (13:27)
[2024-07-19] MEDS: Vitamin B-12 500 MCG PO SCH (13:27)
[2024-07-19] MEDS: CHLORTHALIDONE PO SCH (13:28)
--- NOTE | 2024-07-19 15:19 | PCM.CONS ---
History of Present Illness - Consult Date of Consultation Date: 07/19/24 Reason for Consult: Right shoulder injury Consulting Provider: MARCELO CARDOSO MD - [facility] History of Present Illness: is a 69 year old ambidextrous male who sustained a fall at home on or around 07/13/2024 as a result of syncope. The patient was admitted to the [facility] on 07/18/2024 for evaluation of medical issues. The patient states that since the time of injury, he has had right shoulder and scapular pain that is worse with taking in deep breaths. Since his admission to the hospital, the patient's symptoms have continued. Imaging studies were obtained, which indicated a right distal clavicle fracture. Orthopaedic Surgery was consulted for further evaluation and treatment of the patient. The patient reports right shoulder and posterior scapular pain. The patient denies any numbness or tingling in the right upper extremity. No other problems are reported. - Review of Systems Constitutional: No Symptoms, No Fever, No Chills Eyes: No Symptoms Ears, Nose, & Throat: No Symptoms Respiratory: Cough Cardiac: No Symptoms Abdominal/Gastrointestinal: No Symptoms Genitourinary Symptoms: No Symptoms Musculoskeletal: Fall, Injury, Joint Pain Skin: No Symptoms Neurological: No Symptoms Psychological: No Symptoms Endocrine: No Symptoms Hematologic/Lymphatic: No Symptoms Immunological/Allergic: No Symptoms Medications & Allergies Home Medications: Home Medication List Multivit with Iron,Minerals [Theratrum Complete 50 Plus] 1 tab PO DAILY 07/11/21 [History Confirmed 07/18/24] Metoprolol Succinate 100 mg [Toprol Xl 100 MG] 100 mg PO DAILY 07/18/24 [History Confirmed 07/18/24] Benzonatate 100 mg PO TID PRN 10 Days #30 cap 07/19/24 [Rx] Chlorthalidone 25 mg PO DAILY 07/19/24 [History Confirmed 07/19/24] Cholecalciferol (Vitamin D3) [Vitamin D] 400 units PO DAILY 07/19/24 [History Confirmed 07/19/24] Cyanocobalamin 500 Mcg [Vitamin B-12 500 MCG] 500 mcg PO DAILY 07/19/24 [History Confirmed 07/19/24] HydrALAzine HCL 25 MG TAB [Apresoline 25 MG TABLET] 12.5 mg PO QID 07/19/24 [History Confirmed 07/19/24] Omeprazole 20 mg PO DAILY 07/19/24 [History Confirmed 07/19/24] cefuroxime axetiL [Cefuroxime] 500 mg PO BID 5 Days #10 tablet 07/19/24 [Rx] lisinopriL [Zestril] 40 mg PO DAILY 07/19/24 [History Confirmed 07/19/24] Allergies/Adverse Reactions: Allergies Allergy/AdvReac Type Severity Reaction Status Date / Time No Known Drug Allergies Allergy Verified 07/18/24 11:15 - Past Medical History Past Medical History: Yes Neurological History: No Pertinent History ENT History: No Pertinent History Cardiac History: Arrhythmia, Hypertension Respiratory History: Other Endocrine Medical History: No Pertinent History Musculoskelatal History: Osteoarthritis GI Medical History: No Pertinent History History: No Pertinent History Pyscho-Social History: No Pertinent History Male Reproductive Disorders: No Pertinent History Comment: COLLAPSE LUNG X 2, Acute Renal Failure in June of 2024 - Past Surgical History Past Surgical History: Yes Neuro Surgical History: No Pertinent History Cardiac History: No Pertinent History Respiratory Surgery: No Pertinent History GI Surgical History: No Pertinent History Genitourinary Surgical Hx: No Pertinent History Musculskeletal Surgical Hx: Orthopedic Surgery Male Surgical History: No Pertinent History Other Surgical History: left wrist surgery in the 70's. Significant Family History: other (colon cancer -mom) - Social History Smoking Status: Former smoker How long have you smoked: 40 yrs Exposure to second hand smoke: No Alcohol: None Drug Use: none - Social Determinants of Health Will the patient participate in the screening: Yes Do you worry about a steady place to live?: No Do you have any problems with any of the following?: No known problems In the past 12 months,have you had to go without utilities?: No Have you or anyone in your house had to go without enough: No Transportation Issues: No Has anyone in your support network made you feel unsafe?: No Does the patient want assistance with any of the above?: No - Nursing Vital Signs Nursing Vital Signs: Vital Signs - 24 hr Temp Pulse Resp BP Pulse Ox 07/19/24 11:58 97.9 F 73 16 132/78 93 L 07/19/24 07:59 97.6 F 69 16 151/86 93 L 07/19/24 04:00 97.3 F 68 20 147/89 94 L 07/19/24 00:00 97.8 F 72 20 141/83 94 L 07/18/24 20:00 97.8 F 78 24 158/76 96 07/18/24 17:00 97.8 F 66 18 130/70 97 - Physical Exam General Appearance: no apparent distress SpO2: 93 - Narrative Narrative Physical Exam: On examination, the patient is alert and oriented, no acute distress. The patient interacts appropriately during the examination. Examination of the patient's gait reveals the patient to be laying in a hospital bed. Examination of the right shoulder reveals the skin to be intact; there is no erythema, bruising, or rashes. There is minimal swelling about the superior aspect of the shoulder; there is no gross deformity noted. There is tenderness to palpation over the superior aspect of the shoulder at the distal clavicle and over the inferomedial scapula. The patient has limited shoulder range of motion secondary to pain; the patient moves all of his fingers without difficulty. The patient has a 2+ radial pulse; the patient's capillary refill is less than 2 seconds. The patient's distal sensation is grossly intact to light touch. Assessment/Plan (1) Clavicle fracture Current Visit: Yes Status: Acute Qualifiers: Encounter type: initial encounter Clavicle location: sternal end Fracture type: closed Laterality: right Assessment & Plan: Mr. Brito has a right distal clavicle fracture and contusions to the scapula and rib cage after sustaining a fall on or around 07/14/2023. These injuries will be treated nonoperatively. The right upper extremity will be immobilized in a sling, and the patient will continue symptomatic treatment for the right shoulder. The patient is to follow-up in the Orthopaedic Clinic in 1 week. The patient has been instructed to call if there are any problems, questions, or concerns. Thank you for this consultation. Code(s): S42.009A - FRACTURE OF UNSP PART OF UNSP CLAVICLE, INIT FOR CLOS FX Results - Labs Lab/Micro Results: Lab Results-Last 24 Hours 07/18/24 07/18/24 07/19/24 Range/Units 15:45 19:55 05:28 WBC 7.6 (4.23-9.07) x10^3/uL RBC 3.47 L (4.63-6.08) x10^6/uL Hgb 11.2 L (13.7-17.5) g/dL Hct 33.4 L (40.1-51.0) % MCV 96.3 H (79.0-92.2) fL MCH 32.3 H (25.7-32.2) pg MCHC 33.5 (32.3-36.5) g/dL RDW 12.8 (11.6-14.4) % Plt Count 241 (163-337) x10^3/uL MPV 10.1 (9.4-12.4) fL Sodium (135-145) mmol/L Potassium (3.5-5.1) mmol/L Chloride (98-107) mmol/L Carbon Dioxide (22-30) mmol/L Anion Gap (5-15) MEQ/L BUN (9-20) mg/dL Creatinine (0.66-1.25) mg/dL Estimated GFR ML/MIN Glucose (74-106) mg/dL Calcium (8.4-10.2) mg/dL Total Bilirubin (0.2-1.3) mg/dL AST (17-59) U/L ALT (0-50) U/L Alkaline Phosphatase (38-126) U/L Troponin I < 0.012 < 0.012 (0.000-0.033) ng/mL Serum Total Protein (6.3-8.2) g/dL Albumin (3.5-5.0) g/dL 07/19/24 Range/Units 05:28 WBC (4.23-9.07) x10^3/uL RBC (4.63-6.08) x10^6/uL Hgb (13.7-17.5) g/dL Hct (40.1-51.0) % MCV (79.0-92.2) fL MCH (25.7-32.2) pg MCHC (32.3-36.5) g/dL RDW (11.6-14.4) % Plt Count (163-337) x10^3/uL MPV (9.4-12.4) fL Sodium 137 (135-145) mmol/L Potassium 3.6 (3.5-5.1) mmol/L Chloride 100 (98-107) mmol/L Carbon Dioxide 27 (22-30) mmol/L Anion Gap 13.1 (5-15) MEQ/L BUN 22 H (9-20) mg/dL Creatinine 1.13 (0.66-1.25) mg/dL Estimated GFR 69.9 ML/MIN Glucose 97 (74-106) mg/dL Calcium 8.9 (8.4-10.2) mg/dL Total Bilirubin 0.50 (0.2-1.3) mg/dL AST 34 (17-59) U/L ALT 25 (0-50) U/L Alkaline Phosphatase 74 (38-126) U/L Troponin I (0.000-0.033) ng/mL Serum Total Protein 6.6 (6.3-8.2) g/dL Albumin 4.0 (3.5-5.0) g/dL - Radiology Impressions Radiology Exams & Impressions: Radiology Procedures Category Date Time Status CHEST 1 VIEW (PORTABLE) Stat Exams 07/18/24 11:28 Completed SCAPULA Routine Exams 07/19/24 09:45 Completed SHOULDER Stat Exams 07/18/24 11:28 Completed X-rays of the right shoulder dated 07/18/2024 and right scapula dated 07/19/2024 performed at [facility] were independently reviewed. These images reveal a fracture of the right distal clavicle with slight superior displacement of the distal fracture fragment in comparison to the proximal fracture fragment.
[2024-07-19 15:55] VITALS: BP 131/77; PULSE 77; TEMP 97.7; O2SAT 94
[2024-07-20] MEDS ORDERED: Zestril 20 MG PO SCH (10:00)
[2024-07-20] MEDS ORDERED: NON-FORMULARY ITEM (Omeprazole [Omeprazole] 20 MG Capsule.Dr) PO SCH (10:00)
== END 2024-07-19 16:04 | disposition home or self-care (01) ==
LOC: ED 11:01 → MED SURG 15:06
PROVIDERS: ADMIT Internal Medicine; ATTEND Internal Medicine
DX: J32.9 Chronic sinusitis, unspecified (principal); R55 Syncope and collapse; M94.0 Chondrocostal junction syndrome [Tietze]; N17.9 Acute kidney failure, unspecified; R19.7 Diarrhea, unspecified; E78.5 Hyperlipidemia, unspecified; I10 Essential (primary) hypertension; W19.XXXA Unspecified fall, initial encounter; S42.001A Fracture of unspecified part of right clavicle, initial encounter for closed fracture; Z79.899 Other long term (current) drug therapy
CPT/HCPCS: 36415; 71045; 73010; 73030; 80053; 83880; 84484; 85025; 85027; 93041; 94760; 99285; Q3014; J0696; J1644; A9270-GY